=== PATIENT | male | born 1965 | race Caucasian/White ===

== ENCOUNTER 2016-11-09 20:25 | Emergency (ER) | payer OTHER ==
[2016-11-09 20:47] VITALS: BP 130/72; PULSE 82; TEMP 98.6; BMI 29.2
--- NOTE | 2016-11-09 21:15 | PDOC ---
History of Present Illness - General History Source: Patient Exam Limitations: No Limitations - History of Present Illness Initial Comments: 11/09/16 21:24 The patient is a 51 year old male, with significant past medical history diabetes, pancreatitis, HLD who presents today complaining of 3 weeks of right neck pain, right ear pain, and right eye pain and swelling. The patient reports that the neck pain is exacerbated upon movement and worse when sleeping and driving. He reports spontaneous right ear pain that feels like he is "being electrocuted". His right eye has progressively swollen since the pain began, but not red or itchy. He notes an intermittent frontal headache that also began at the onset of these symptoms. He states that he had a recent sore throat, subjective fever, body aches, and chills 2 weeks ago which has since subsided. The patient states that he is compliant with all of his medications. He denies head trauma. He denies visual changes. He denies jaw pain. He denies a rash. He denies fever, chills, nausea, vomiting. He denies chest pain. Allergies: none reported Social Hx: tobacco use (1ppd). No alcohol use. PCP- Dr. Dennis <Zulma Aquino - Last Filed: 11/09/16 21:34> <Amalia Lion - Last Filed: 11/10/16 05:10> - General Chief Complaint: Pain Stated Complaint: NECK, RIGHT FACE, RIGHT EYELID PAIN Time Seen by Provider: 11/09/16 20:38 Past History <Zulma Aquino - Last Filed: 11/09/16 21:34> - Past Medical History Anemia: No Asthma: No Cancer: No Cardiac Disorders: No CVA: No COPD: No CHF: No Dementia: No Diabetes: Yes GI Disorders: Yes (Pancreatitis) Disorders: No HTN: No Hypercholesterolemia: Yes (and hyperlipidemia) Liver Disease: No Seizures: No Thyroid Disease: No - Surgical History Abdominal Surgery: No Appendectomy: Yes Cardiac Surgery: No Cholecystectomy: Yes Lung Surgery: No Neurologic Surgery: No Orthopedic Surgery: No - Immunization History Immunization Up to Date: Yes - Psycho/Social/Smoking Cessation Hx Anxiety: No Suicidal Ideation: No Smoking Status: Yes Smoking History: Current every day smoker Have you smoked in the past 12 months: Yes Number of Cigarettes Smoked Daily: 10 Cigars Per Day: 0 Information on smoking cessation initiated: Yes 'Breaking Loose' booklet given: 10/19/15 Hx Alcohol Use: No Drug/Substance Use Hx: No Substance Use Type: None Hx Substance Use Treatment: No <Amalia Lion - Last Filed: 11/10/16 05:10> - Past Medical History Allergies/Adverse Reactions: Allergies Allergy/AdvReac Type Severity Reaction Status Date / Time No Known Allergies Allergy Verified 11/09/16 20:27 Home Medications: Ambulatory Orders Insulin (Novolog) [Novolog Flexpen -] 23 units SQ TID 10/29/12 Insulin Detemir [Levemir Flexpen] 40 unit SQ HS 10/29/12 Metformin HCl [Glucophage] 1,000 mg PO BID 10/29/12 Atorvastatin Ca [Lipitor] 80 mg PO HS 10/19/15 [place]-3 Fatty Acids [Fish Oil] 1,000 mg PO DAILY 10/19/15 Fenofibrate [Lofibra] 160 mg PO DAILY 02/19/16 Insulin Detemir [Levemir Flextouch] 40 unit SQ AM 02/19/16 Amox-Tr/K Cl [Augmentin - 875Mg Tablet] 1 tab PO BID #14 tablet 11/09/16 Review of Systems - Review of Systems Able to Perform ROS?: Yes Comments:: 11/09/16 21:24 CONSTITUTIONAL: Absent: fever, no chills, no fatigue EYES: Present: swollen right eye. Absent: visual changes ENT: Present: right ear pain Absent: no sore throat CARDIOVASCULAR: Absent: chest pain, no palpitations RESPIRATORY: Absent: cough, no SOB GI: Absent: abdominal pain, no nausea, no vomiting, no constipation, no diarrhea GENITOURINARY: Absent: dysuria, no frequency, no hematuria MUSCULOSKELETAL: Present: right sided neck pain Absent: back pain SKIN: Absent: rash NEURO: Present: intermittent frontal headache <Zulma Aquino - Last Filed: 11/09/16 21:34> *Physical Exam - Vital Signs Last Vital Signs Temp Pulse Resp BP Pulse Ox 98.6 F 82 15 130/72 95 11/09/16 20:27 11/09/16 20:27 11/09/16 20:27 11/09/16 20:27 11/09/16 20:27 - Physical Exam Comments: 11/09/16 21:25 GENERAL: The patient is awake, alert, and fully oriented, in no acute distress. HEAD: +Mild edema and moderate tenderness of the right occipital scalp region extending to the retro auricular area without fluctuance or abrasions/ lacerations. Normal with no signs of trauma. EYES: +moderate edema and erythema of the right upper eyelid. Remainder of the eye exam without abnormality. Pupils equal, round and reactive to light, extraocular movements intact, sclera anicteric, conjunctiva clear with no pallor. ENT +:Normal right ear with no pain with movement of the external ear canal. Normal tympanic membrane Nares patent, oropharynx clear without exudates. Moist mucous membranes. FACE: +Moderate non tender edematous area of the right lateral mid cheek without erythema or increased warmth. No pain on opening of the jaw. NECK: +mild right paraspinal muscle tenderness but neck is supple without other masses. Normal range of motion, supple without lymphadenopathy, JVD, or masses. LUNGS: Breath sounds equal, clear to auscultation bilaterally. No wheeze/ crackles. HEART: Regular rate and rhythm, normal S1 and S2 without murmur or rub. ABDOMEN: Soft/nontender/nondistended. BS wnl. No guarding or rebound. No palpable masses. No hepatosplenomegaly. EXTREMITIES: Normal range of motion, no edema. No clubbing or cyanosis. No cords, erythema, or tenderness. NEUROLOGICAL: Cranial nerves II through XII grossly intact. Normal speech, normal gait. PSYCH: Normal mood, normal affect. SKIN: Warm, Dry, normal turgor, no rashes or lesions noted. <Zulma Aquino - Last Filed: 11/09/16 21:34> - Vital Signs Last Vital Signs Temp Pulse Resp BP Pulse Ox 98.6 F 82 15 130/72 95 11/09/16 20:27 11/09/16 20:27 11/09/16 20:27 11/09/16 20:27 11/09/16 20:27 <Amalia Lion - Last Filed: 11/10/16 05:10> ED Treatment Course - LABORATORY CBC & Chemistry Diagram: 11/09/16 22:05 11/09/16 22:05 <Amalia Lion - Last Filed: 11/10/16 05:10> Medical Decision Making - Medical Decision Making Documentation has been prepared under my direction and personally reviewed by me in its entirety. I attest that this documented accurately reflects all work, treatment, procedures and medical decision making performed by me. As noted above, this 51-year-old insulin-dependent diabetic man presents with history of right-sided posterior headache and scalp tenderness, intermittent right ear paresthesias as well as right facial edema and frontal headache for 2 weeks. There has been no rash. There has been no neck stiffness He presents tonight because the right upper eyelid has become more swollen and erythematous. He denies fever/chills now although he had generalized myalgias and fever a few weeks ago. He denies throat or dental issues currently. Exam as noted. Chemistry profile and CBC essentially normal Noncontrast head CT, soft tissue neck CT and facial CT was performed in order to fully rule out deep space abscess. No evidence of abscess present on CT studies as interpreted by Imaging sports nutritionist. There is some mucosal thickening of the right ethmoid and right sphenoid sinus without air-fluid levels. Although mention of pharyngeal soft tissue thickening was made, there is no correlation of this on physical exam. Although some of these symptoms are consistent with zoster, doubt that symptoms would be present for this length of time without development of rash. Patient will be started on Augmentin 875/125 twice a day to treat sphenoidal/ ethmoid sinusitis. Patient strongly urged to follow-up with (patient states that he has a scheduled appointment with him in 3 days.) Meanwhile, he should return to the ER if he has worsening pain or develops fever/rash <Amalia Lion - Last Filed: 11/10/16 05:10> *DC/Admit/Observation/Transfer - Attestations Scribe Attestion: 11/09/16 21:26 Documentation prepared by BEENA Cronin, acting as medical charge entry specialist for Amalia Lion MD. <Zulma Aquino - Last Filed: 11/09/16 21:34> <Amalia Lion - Last Filed: 11/10/16 05:10> Diagnosis at time of Disposition: Sinusitis Qualifiers: Sinusitis location: unspecified location Recurrence: non-recurrent - Discharge Dispostion Disposition: HOME Condition at time of disposition: Stable - Prescriptions Prescriptions: Amox-Tr/K Cl [Augmentin - 875Mg Tablet] 1 tab PO BID #14 tablet - Referrals Referrals: Earl Dennis MD [Primary Care Provider] - - Patient Instructions Printed Discharge Instructions: Sinusitis Additional Instructions: Augmentin 875/125 twice a day for one week ( take with food) Local warmth to right posterior neck as needed Tylenol/Motrin/Aleve as needed for pain Return to ER if you have worsening swelling/pain/develop fever Follow-up with Dr. Dennis as scheduled this coming week
[2016-11-09 22:33] LABS: ALBUMIN 3.9 g/dl (3.5-5.0); ALK PHOS 40 U/L (32-92); ANION GAP 9 (8-16); CALCIUM 9.2 mg/dl (8.4-10.2); CO2 24 mmol/L (22-28); CREATININE 1.1 mg/dl (0.6-1.3); GLUCOSE,RANDOM 111 mg/dl (74-106); SGOT/AST 28 U/L (10-42); SGPT/ALT 39 U/L (10-40); TOT PROT 6.6 g/dl (6.4-8.3)
[2016-11-09 22:35] LABS: BASOPHIL 0.8 % (0-2.0); MCH 30.2 pg (25.7-33.7); MCHC 33.4 g/dl (32.0-35.9); MEAN CELL VOLUME 90.7 fl (80-96); MEAN PLT VOLUME 8.6 fl (7.5-11.1); NEUTROPHILS 39.1 % (42.8-82.8); PLATELET COUNT 277 K/MM3 (134-434); RDW 13.9 % (11.9-15.9)
[2016-11-09 22:43] LABS: BILIRUBIN,TOTAL 0.5 mg/dl (0.2-1.0)
[2016-11-09] MEDS ORDERED: AMOX TR/POT CLAV 875MG/125MG TABLETS (FP) PO ONE (23:40)
[2016-11-09] MEDS ORDERED: AMOX TR/POT CLAV 875MG/125MG TABLETS (FP) ONE (23:43)
== END 2016-11-09 23:47 | disposition home or self-care (01) ==
LOC: FER 20:25
DX: J32.8 Other chronic sinusitis (principal); E11.9 Type 2 diabetes mellitus without complications; K85.90 Acute pancreatitis without necrosis or infection, unspecified; E78.5 Hyperlipidemia, unspecified; F17.210 Nicotine dependence, cigarettes, uncomplicated
CPT/HCPCS: 36415; 70450-TC; 70486-TC; 70490-TC; 80053; 85025; 99282-25

== ENCOUNTER 2017-10-20 18:09 | Emergency (ER) | payer OTHER ==
--- NOTE | 2017-10-20 18:13 | PDOC ---
History of Present Illness - General Chief Complaint: Cold Symptoms Stated Complaint: COUGH Time Seen by Provider: 10/20/17 18:13 History Source: Patient Exam Limitations: No Limitations - History of Present Illness Initial Comments: 10/20/17 18:18 52 y/o male with diabetes, high cholesterol, pancreatitis, presents to ER with congestion, cough for several months, but now having more coughing spells. No productive cough. No headache, SOB or chest pain. No N/V/d/C. No back pain. Using Afrin with no relief. Has an appointment with PMD next week. Patient states cough has gotten worse over last few days. No traveling or sick contacts. Timing/Duration: reports: constant Severity: reports: mild Associated Symptoms: reports: cough, nasal congestion. denies: fever/chills, headache Past History - Past Medical History Allergies/Adverse Reactions: Allergies Allergy/AdvReac Type Severity Reaction Status Date / Time No Known Allergies Allergy Verified 10/20/17 18:10 Home Medications: Ambulatory Orders Insulin (Novolog) [Novolog Flexpen -] 30 units SQ TID 10/29/12 metFORMIN HCL [Glucophage] 1,000 mg PO BID 10/29/12 Atorvastatin Ca [Lipitor] 80 mg PO HS 10/19/15 [place]-3 Fatty Acids [Fish Oil] 1,000 mg PO DAILY 10/19/15 Gemfibrozil [Lopid] 600 mg PO DAILY 03/30/17 Albuterol Sulfate Inhaler - [Ventolin HFA Inhaler -] 1 - 2 inh PO QID #1 inhaler 10/20/17 Aspirin [ASA -] 81 mg PO DAILY 10/20/17 Azithromycin [Zithromax -] 250 mg PO UTDICT #6 tab 10/20/17 Anemia: No Asthma: No Cancer: No Cardiac Disorders: No CVA: No COPD: No CHF: No Dementia: No Diabetes: Yes GI Disorders: Yes (Pancreatitis) Disorders: No HTN: No Hypercholesterolemia: Yes (and hyperlipidemia) Liver Disease: No Seizures: No Thyroid Disease: No - Surgical History Abdominal Surgery: No Appendectomy: Yes Cardiac Surgery: No Cholecystectomy: Yes Lung Surgery: No Neurologic Surgery: No Orthopedic Surgery: No - Immunization History Immunization Up to Date: Yes - Suicide/Smoking/Psychosocial Hx Smoking Status: Yes Smoking History: Current every day smoker Have you smoked in the past 12 months: Yes Number of Cigarettes Smoked Daily: 10 Cigars Per Day: 0 'Breaking Loose' booklet given: 10/19/15 Hx Alcohol Use: No Drug/Substance Use Hx: No Substance Use Type: None Hx Substance Use Treatment: No Respiratory Specific PMHX - Complaint Specific PMHX Angina: No Review of Systems - Review of Systems Able to Perform ROS?: Yes Is the patient limited [place] proficient: No Constitutional: No: Chills, Fever HEENTM: Yes: Nose Congestion Respiratory: Yes: Cough. No: Shortness of Breath Cardiac (ROS): No: Chest Pain, Syncope ABD/GI: No: Nausea, Vomiting Musculoskeletal: No: Back Pain Neurological: No: Paresthesia, Tremors All Other Systems: Reviewed and Negative *Physical Exam - Physical Exam General Appearance: Yes: Nourished, Appropriately Dressed. No: Apparent Distress HEENT: positive: EOMI, BRIANDA, Normal ENT Inspection, Normal Voice, Pharynx Normal Neck: positive: Trachea midline, Normal Thyroid, Supple. negative: Tender, Rigid Respiratory/Chest: positive: Normal Breath Sounds. negative: Chest Tender, Lungs Clear (coarse breath sounds b/l, no wheezing noted), Respiratory Distress Cardiovascular: positive: Regular Rhythm, Regular Rate, S1, S2. negative: Edema , JVD, Murmur Vascular Pulses: Femoral (R): 4+, Femoral (L): 4+, Carotid (R): 4+, Carotid (L) : 4+, Dorsalis-Pedis (R): 4+, Doralis-Pedis (L): 4+ Gastrointestinal/Abdominal: positive: Normal Bowel Sounds, Flat, Soft. negative : Tender, Organomegaly, Pulsatile Mass Lymphatic: negative: Adenopathy, Tenderness, Other Musculoskeletal: positive: Normal Inspection. 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 Pt appears to have bronchitis, will cover with Z-pack Albuterol MDI 2 puffs 4x/day as needed Will avoid steroids at this time due to hx of diabetes, pt is in agreement with plan Stop Afrin, use Flonase Vitals stable 100% on RA If worsen return to ER *DC/Admit/Observation/Transfer Diagnosis at time of Disposition: Bronchitis - Discharge Dispostion Condition at time of disposition: Good Decision to Admit order: No - Prescriptions Prescriptions: Albuterol Sulfate Inhaler - [Ventolin HFA Inhaler -] 1 - 2 inh PO QID #1 inhaler Azithromycin [Zithromax -] 250 mg PO UTDICT #6 tab - Referrals - Patient Instructions Printed Discharge Instructions: DI for Acute Bronchitis Additional Instructions: Fluids, rest, Motrin Z-pack as directed Albuterol MDI 2 puffs 4x/day as needed Stop Afrin, use Flonase If worsen return to ER - Post Discharge Activity
[2017-10-20 18:56] VITALS: BP 138/78; PULSE 90; TEMP 98.5; BMI 28.1
== END 2017-10-20 18:53 | disposition home or self-care (01) ==
LOC: FER 18:09
DX: J40 Bronchitis, not specified as acute or chronic (principal); E11.9 Type 2 diabetes mellitus without complications; Z79.4 Long term (current) use of insulin; F17.210 Nicotine dependence, cigarettes, uncomplicated; E78.5 Hyperlipidemia, unspecified
CPT/HCPCS: 99282-25

== ENCOUNTER 2018-02-22 12:41 | Emergency (ER) | payer OTHER ==
[2018-02-22] MEDS ORDERED: predniSONE 20 MG TABLET (UD) PO ONE (12:51)
[2018-02-22] MEDS ORDERED: ALBUTEROL SO4 2.5/IPRATROPIUM 0.5 INH SOL 3 ML VIAL.NEB. NEB ONE ×2 (12:51→13:00)
--- NOTE | 2018-02-22 12:56 | PDOC ---
History of Present Illness - General Chief Complaint: Asthma Stated Complaint: asthma Time Seen by Provider: 02/22/18 12:44 History Source: Patient Exam Limitations: No Limitations - History of Present Illness Initial Comments: 02/22/18 12:52 53 y/o male with hx of asthma presents to ER with increase cough adn SOB. Patient using inhaler but no better. Patient is a smoker for a long time, no chest pain or back pain. Patient states that he was working outside on Friday and ever since he has had a cough. Had a work up on his asthma but no results. No fever orc hills. No N/V/d/C. Timing/Duration: reports: constant Severity: reports: mild Modifying Factors: improves with: albuterol inhaler Associated Symptoms: reports: cough, shortness of breath. denies: fever/chills , nasal drainage Past History - Past Medical History Allergies/Adverse Reactions: Allergies Allergy/AdvReac Type Severity Reaction Status Date / Time No Known Allergies Allergy Verified 02/22/18 12:42 Home Medications: Ambulatory Orders Insulin (Novolog) [Novolog Flexpen -] 30 units SQ TID 10/29/12 metFORMIN HCL [Glucophage] 1,000 mg PO BID 10/29/12 Atorvastatin Ca [Lipitor] 80 mg PO HS 10/19/15 [place]-3 Fatty Acids [Fish Oil] 1,000 mg PO DAILY 10/19/15 Albuterol Sulfate Inhaler - [Ventolin HFA Inhaler -] 1 - 2 inh PO QID #1 inhaler 10/20/17 Aspirin [ASA -] 81 mg PO DAILY 10/20/17 Azithromycin [Zithromax -] 250 mg PO UTDICT #6 tab 02/22/18 Prednisone [Deltasone] 20 mg PO BID #10 tablet 02/22/18 Anemia: No Asthma: No Cancer: No Cardiac Disorders: No CVA: No COPD: No CHF: No Dementia: No Diabetes: Yes GI Disorders: Yes (Pancreatitis) Disorders: No HTN: No Hypercholesterolemia: Yes (and hyperlipidemia) Liver Disease: No Seizures: No Thyroid Disease: No - Surgical History Abdominal Surgery: No Appendectomy: Yes Cardiac Surgery: No Cholecystectomy: Yes Lung Surgery: No Neurologic Surgery: No Orthopedic Surgery: No - Immunization History Immunization Up to Date: Yes - Suicide/Smoking/Psychosocial Hx Smoking Status: Yes Smoking History: Current every day smoker Have you smoked in the past 12 months: Yes Number of Cigarettes Smoked Daily: 10 Cigars Per Day: 0 'Breaking Loose' booklet given: 10/20/17 Hx Alcohol Use: No Drug/Substance Use Hx: No Substance Use Type: None Hx Substance Use Treatment: No Respiratory Specific PMHX - Complaint Specific PMHX Angina: No Review of Systems - Review of Systems Able to Perform ROS?: Yes Is the patient limited [place] proficient: No Constitutional: No: Chills, Fever HEENTM: No: Nose Congestion, Throat Pain Respiratory: Yes: Cough, Shortness of Breath, Wheezing. No: Orthopnea, Productive cough Cardiac (ROS): No: Chest Pain, Palpitations ABD/GI: No: Nausea, Vomiting All Other Systems: Reviewed and Negative *Physical Exam - Physical Exam General Appearance: Yes: Nourished, Appropriately Dressed. No: Apparent Distress HEENT: positive: EOMI, BRIANDA, Normal ENT Inspection, Normal Voice, Pharynx Normal Neck: positive: Trachea midline, Normal Thyroid, Supple. negative: Tender, Rigid, Carotid bruit Respiratory/Chest: positive: Rhonchi, Wheezing. negative: Chest Tender, Lungs Clear (coarse breath sounds with expiratory wheezing b/l), Normal Breath Sounds , Respiratory Distress, Accessory Muscle Use, Crackles Cardiovascular: positive: Regular Rhythm, Regular Rate, S1, S2. negative: Edema , JVD, Murmur (no calf tenderness b/l) Vascular Pulses: Femoral (R): 4+, Femoral (L): 4+, Carotid (R): 4+, Carotid (L) : 4+, Dorsalis-Pedis (R): 4+, Doralis-Pedis (L): 4+ Gastrointestinal/Abdominal: positive: Normal Bowel Sounds, Flat, Soft. negative : Tender, Organomegaly, Pulsatile Mass Lymphatic: negative: Adenopathy, Tenderness, Other Musculoskeletal: positive: Normal Inspection. negative: CVA Tenderness Extremity: positive: Normal Capillary Refill, Normal Inspection, Normal Range of Motion. 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 Will treat and obtain CXR. Pt is in agreement with plan Patient appears better, feels better after treatment Discussed smoking censation and early COPD Lungs clearer with decreased wheezing Will discharge home with asthmatic bronchitis If worsen will return to ER Pt is in agreement with plan *DC/Admit/Observation/Transfer Diagnosis at time of Disposition: Asthmatic bronchitis Qualifiers: Asthma severity: mild Asthma persistence: persistent Asthma complication type: with acute exacerbation Qualified Code(s): J45.31 - Mild persistent asthma with (acute) exacerbation - Discharge Dispostion Disposition: HOME Condition at time of disposition: Improved Decision to Admit order: No - Referrals - Patient Instructions Printed Discharge Instructions: Asthma -- Adult, DI for Chronic Bronchitis Additional Instructions: Fluids, rest, Tylenol Continue asthma medications as needed Prednisone 20 mg 2x/day for 5 days Z-pack as directed Stop smoking If worsen return to ER - Post Discharge Activity
[2018-02-22 12:59] VITALS: BP 139/71; PULSE 84; TEMP 98.4; BMI 30.4
[2018-02-22] MEDS ORDERED: predniSONE 20 MG TABLET (UD) ONE (12:59)
== END 2018-02-22 13:43 | disposition home or self-care (01) ==
LOC: FER 12:41
PROC: 3E0F7GC Introduction of Other Therapeutic Substance into Respiratory Tract, Via Natural or Artificial Opening (ICD-10-PCS; principal; 2018-02-22)
DX: J45.31 Mild persistent asthma with (acute) exacerbation (principal); F17.210 Nicotine dependence, cigarettes, uncomplicated; E11.9 Type 2 diabetes mellitus without complications; E78.00 Pure hypercholesterolemia, unspecified
CPT/HCPCS: 71046-TC-FY; 99281-25; J7620

== ENCOUNTER 2019-02-12 21:17 | Inpatient (IN) | payer OTHER ==
--- NOTE | 2019-02-12 21:36 | PDOC ---
Documentation entered by Jimenez Alba SCRIBE, acting as scribe for Keisha Poe MD. Keisha Poe MD: This documentation has been prepared by the Parth lopez Daniel, SCRIBE, under my direction and personally reviewed by me in its entirety. I confirm that the documentation accurately reflects all work , treatment, procedures, and medical decision making performed by me. History of Present Illness - General Chief Complaint: Pain, Acute Stated Complaint: PANCREATITIS Time Seen by Provider: 02/12/19 21:18 History Source: Patient Exam Limitations: No Limitations - History of Present Illness Initial Comments: 02/12/19 21:34 The patient is a 54 year old male with a past medical history of asthma and pancreatitis here today for evaluation of diffuse abdominal pain. The patient reports that his symptoms started last night and describes them as diffuse abdominal pain that radiates around to the right side of his back which is worse with deep breaths, nausea, vomiting, and constipation. Patient reports that this feels similar to his other episodes of pancreatitis and notes that these episodes are caused by high triglycerides. Patient denies headache, lightheadedness. Denies fever, chills. Denies chest pain, shortness of breath. Denies diarrhea. Allergies: NKA PCP: Earl Dennis General: No fevers or chills, no weakness, no weight loss HEENT: No change in vision. No sore throat,. No ear pain CardioVascular: No chest pain or shortness of breath Respiratory:No cough, or wheezing. Gastrointestinal: +abdominal pain. +nausea, vomiting. +constipation. no diarrhea, No rectal bleeding Genitourinary: No dysuria, hematuria, or frequency Musculoskeletal: No joint or muscle pain or swelling Neurologic: No headache, vertigo, dizziness or loss of consciousness Psychiatric: nor depression Skin: No rashes or easy bruising Endocrine: no increased thirst or abnormal weight change Allergic: no skin or latex allergy All other systems reviewed and normal General: Well-nourished well-developed individual, no acute distress HEENT: Throat: Normal, tonsils normal, no erythema or exudate Neck: Supple, no meningeal signs, no lymphadenopathy Eyes::Pupils equal reactive and round, extraocular motion intact Chest: Nontender to palpation Cardiac: S1-S2 normal, regular rate and rhythm, no murmurs rubs or gallops Respiratory: Lungs clear to auscultation bilateral Abdomen: +slight distention. +decreased bowel sounds. +tenderness to palpation of epigastrum and right upper quadrant. Soft Extremities: Warm, dry, no cyanosis, clubbing, or edema Skin: No rashes Neuro: Alert and oriented x3, nonfocal exam, grossly intact, normal gait Psych: Normal mood and affect 02/12/19 22:15 This is a 54-year-old male who comes in complaining of pancreatitis. 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 Patient said this is his typical pancreatic pain. Patient said he hasn't has had some nausea and vomiting associated with it but no diarrhea. Patient denies any chest pain or shortness of breath. Patient is tender in the epigastric and right upper quadrant there is no guarding or rebound Workup initiated including CBC, comp, lipase and chest x-ray, CAT scan abdomen and pelvis Patient being given fluids and antiemetics and pain medication 02/13/19 00:12 CAT scan read as early acute pancreatitis. Patient unable to tolerate by mouth's and is requiring IV pain medication. Patient will be admitted for pain management, IV fluids and management of his pancreatitis. Past History - Past Medical History Allergies/Adverse Reactions: Allergies Allergy/AdvReac Type Severity Reaction Status Date / Time No Known Allergies Allergy Verified 02/22/18 12:42 Home Medications: Ambulatory Orders metFORMIN HCL [Glucophage] 1,000 mg PO BID 10/29/12 Atorvastatin Ca [Lipitor] 80 mg PO HS 10/19/15 [place]-3 Fatty Acids [Fish Oil] 1,000 mg PO DAILY 10/19/15 Aspirin [ASA -] 81 mg PO DAILY 10/20/17 Fenofibrate Nanocrystallized [Fenofibrate] 160 mg PO HS 02/12/19 Glipizide 5 mg PO BID 02/12/19 Insulin Glargine,Hum.rec.anlog [Basaglar Kwikpen U-100] 100 unit SQ BID Insulin Regular, Human [Humulin R U-500 Kwikpen] 30 unit SQ ASDIR 02/12/19 Ramipril 2.5 mg PO DAILY 02/12/19 Anemia: No Asthma: No Cancer: No Cardiac Disorders: No CVA: No COPD: No CHF: No Dementia: No Diabetes: Yes GI Disorders: Yes (Pancreatitis) Disorders: No HTN: No Hypercholesterolemia: Yes (and hyperlipidemia) Liver Disease: No Seizures: No Thyroid Disease: No - Surgical History Abdominal Surgery: No Appendectomy: Yes Cardiac Surgery: No Cholecystectomy: Yes Lung Surgery: No Neurologic Surgery: No Orthopedic Surgery: No - Immunization History Immunization Up to Date: Yes - Suicide/Smoking/Psychosocial Hx Smoking Status: Yes Smoking History: Never smoked Have you smoked in the past 12 months: Yes Number of Cigarettes Smoked Daily: 10 If you are a former smoker, when did you quit?: 3 days ago, Cigars Per Day: 0 'Breaking Loose' booklet given: 10/20/17 Hx Alcohol Use: No Drug/Substance Use Hx: No Substance Use Type: None Hx Substance Use Treatment: No Review of Systems - Review of Systems Able to Perform ROS?: Yes *Physical Exam - Vital Signs Last Vital Signs Temp Pulse Resp BP Pulse Ox 98.7 F 76 16 164/79 97 02/12/19 21:19 02/12/19 21:19 02/12/19 21:19 02/12/19 21:19 02/12/19 21:19 ED Treatment Course - LABORATORY CBC & Chemistry Diagram: 02/12/19 21:40 02/12/19 21:40 *DC/Admit/Observation/Transfer Diagnosis at time of Disposition: Pancreatitis Qualifiers: Chronicity: acute Pancreatitis type: unspecified pancreatitis type Acute pancreatitis complication: unspecified Qualified Code(s): K85.90 - Acute pancreatitis without necrosis or infection, unspecified - Discharge Dispostion Condition at time of disposition: Stable Decision to Admit order: Yes - Referrals - Patient Instructions - Post Discharge Activity
[2019-02-12 22:04] LABS: BASO % 0.7 % (0-2.0); EOS % 0.9 % (0-4.5); HEMATOCRIT 45.4 % (35.4-49); HEMOGLOBIN 15.2 GM/dl (11.7-16.9); LYMPH % 26.2 % (8-40); MCH 31.3 pg (25.7-33.7); MCHC 33.6 g/dl (32.0-35.9); MEAN CELL VOLUME 93.2 fl (80-96); MEAN PLT VOLUME 9.1 fl (7.5-11.1); MONO % 10.2 % (3.8-10.2); PLATELET COUNT 248 K/MM3 (134-434); RBC 4.87 M/mm3 (4.00-5.60); RDW 13.9 % (11.9-15.9); WHITE BLOOD COUNT 13.1 K/mm3 (4.0-10.8)
[2019-02-12] MEDS ORDERED: SODIUM CHLORIDE 1,000 ML IV ONE (22:08)
[2019-02-12] MEDS ORDERED: morphine CARPU-JECT 4 MG/1 ML DISP.SYRIN IVPUSH ONE (22:08)
[2019-02-12 22:11] LABS: ALBUMIN 3.9 g/dl (3.4-5.0); BILIRUBIN,TOTAL 0.7 mg/dl (0.2-1); CALCIUM 9.7 mg/dl (8.5-10); CREATININE 0.9 mg/dl (0.55-1.3); POTASSIUM 4.1 mmol/L (3.5-5.1); TOT PROT 6.9 g/dl (6.4-8.2)
[2019-02-12] MEDS ORDERED: morphine SULFATE 4 MG/ML VIAL ONE (22:13)
[2019-02-12] MEDS ORDERED: ONDANSETRON 4 MG/2 ML VIAL IVPB ONE (22:16)
[2019-02-12] MEDS ORDERED: ONDANSETRON 4 MG/2 ML VIAL ONE (22:18)
[2019-02-13] MEDS ORDERED: morphine CARPU-JECT 4 MG/1 ML DISP.SYRIN IVPUSH ONE (00:29)
[2019-02-13] MEDS ORDERED: morphine SULFATE 4 MG/ML VIAL ONE (00:38)
[2019-02-13] MEDS ORDERED: ONDANSETRON 4 MG/2 ML VIAL IVPUSH PRN (01:51)
[2019-02-13] MEDS ORDERED: morphine CARPU-JECT 2 MG/1 ML DISP.SYRIN IVPUSH PRN (01:55)
[2019-02-13] MEDS: SODIUM CHLORIDE 1,000 ML IV SCH (03:03)
[2019-02-13 03:39] VITALS: BMI 30.5
[2019-02-13] MEDS ORDERED: INSULIN SLIDING SCALE (NOVOLOG) 1 VIAL SQ SCH (07:00)
[2019-02-13 08:42] LABS: HEMATOCRIT 43.8 % (35.4-49); HEMOGLOBIN 14.7 GM/dl (11.7-16.9); MCH 31.2 pg (25.7-33.7); MCHC 33.5 g/dl (32.0-35.9); MEAN PLT VOLUME 8.9 fl (7.5-11.1); PLATELET COUNT 227 K/MM3 (134-434); RBC 4.71 M/mm3 (4.00-5.60); RDW 14.1 % (11.9-15.9); WHITE BLOOD COUNT 11.5 K/mm3 (4.0-10.8)
[2019-02-13 09:04] LABS: CREATININE 0.9 mg/dl (0.55-1.3); POTASSIUM 4.4 mmol/L (3.5-5.1)
[2019-02-13 09:05] LABS: ALBUMIN 3.7 g/dl (3.4-5.0); BILIRUBIN,TOTAL 0.9 mg/dl (0.2-1); CALCIUM 8.9 mg/dl (8.5-10); TOT PROT 6.8 g/dl (6.4-8.2)
[2019-02-13] MEDS: HEPARIN NA (PORCINE) 5,000 UNITS/ML 1ML VIAL SQ SCH ×2 (09:51→21:23)
--- NOTE | 2019-02-13 11:39 | HP ---
CHIEF COMPLAINT:Abdominal pain and nausea PCP: Earl Falcon HISTORY OF PRESENT ILLNESS: The patient is a 54 year old male with a past medical history of DM, HTN, HDL, asthma,bronchitis, smoker and pancreatitis, who presents to ER complaining of sharp abdominal pain ( epigsatic / LUQ) which radiates to mid back, started on associated with nausea and chills,but no fever, vomiting, cp, sob, palpitations, or urinary symptoms. Patient reports that this feels similar to his other episodes of pancreatitis and notes that these episodes are caused by high triglycerides. ER course was notable for: (1)wbc -13.1, afebrile (2)LFT"s - ASt 43,ALT 82,ALK 51, Lipase 446 (3)CT abdomen: mild/early acute pancreatitis , marked hepatic steatosis, stable renal artery aneurysm (4( cXR: No acute pathology Recent Travel:No PAST MEDICAL HISTORY: As mentioned above PAST SURGICAL HISTORY: GB sx Appendectomy Social History: Smoking:yes, less than a pack per day (over 35 yrs) Alcohol:No Drugs: No *Family History Mother - CAD,CVA and DM Father - CAD,CVA and DM Uncle from mothers side of colon CA Allergies No Known Allergies Allergy (Verified 02/22/18 12:42) HOME MEDICATIONS: Home Medications Medication Instructions Recorded metFORMIN HCL [Glucophage] 1,000 mg PO BID 10/29/12 Atorvastatin Ca [Lipitor] 80 mg PO HS 10/19/15 [place]-3 Fatty Acids [Fish Oil] 1,000 mg PO DAILY 10/19/15 Aspirin [ASA -] 81 mg PO DAILY 10/20/17 Fenofibrate Nanocrystallized 160 mg PO HS 02/12/19 [Fenofibrate] Glipizide 5 mg PO BID 02/12/19 Insulin Glargine,Hum.rec.anlog 100 unit SQ BID 02/12/19 [Basaglar Kwikpen U-100] Insulin Regular, Human [Humulin R 30 unit SQ ASDIR 02/12/19 U-500 Kwikpen] Ramipril 2.5 mg PO DAILY 02/12/19 REVIEW OF SYSTEMS CONSTITUTIONAL: Absent: fever, chills, diaphoresis, generalized weakness, malaise, loss of appetite, weight change HEENT: Absent: rhinorrhea, nasal congestion, throat pain, throat swelling, difficulty swallowing, mouth swelling, ear pain, eye pain, visual changes CARDIOVASCULAR: Absent: chest pain, syncope, palpitations, irregular heart rate, lightheadedness , peripheral edema RESPIRATORY: Absent: cough, shortness of breath, dyspnea with exertion, orthopnea, wheezing, stridor, hemoptysis GASTROINTESTINAL: Abdominal pain epigastric and LUQ, and nausea Absent: abdominal distension, vomiting, diarrhea, constipation, melena, hematochezia GENITOURINARY: Absent: dysuria, frequency, urgency, hesitancy, hematuria, flank pain, genital pain MUSCULOSKELETAL: Absent: myalgia, arthralgia, joint swelling, back pain, neck pain SKIN: Absent: rash, itching, pallor HEMATOLOGIC/IMMUNOLOGIC: Absent: easy bleeding, easy bruising, lymphadenopathy, frequent infections ENDOCRINE: Absent: unexplained weight gain, unexplained weight loss, heat intolerance, cold intolerance NEUROLOGIC: Absent: headache, focal weakness or paresthesias, dizziness, unsteady gait, seizure, mental status changes, bladder or bowel incontinence PSYCHIATRIC: Absent: anxiety, depression, suicidal or homicidal ideation, hallucinations. PHYSICAL EXAMINATION Vital Signs - 24 hr 02/12/19 02/13/19 02/13/19 21:19 01:17 03:30 Temperature 98.7 F 97.5 F L Pulse Rate 76 81 Pulse Rate [ 75 Radial] Respiratory 16 18 18 Rate Blood Pressure 164/79 160/76 Blood Pressure 150/78 [Arm] O2 Sat by Pulse 97 96 95 Oximetry (%) 02/13/19 05:51 Temperature 98.0 F Pulse Rate 75 Pulse Rate [ Radial] Respiratory 18 Rate Blood Pressure 153/67 Blood Pressure [Arm] O2 Sat by Pulse 97 Oximetry (%) GENERAL: Awake, alert, and fully oriented, in no acute distress. HEAD: Normal with no signs of trauma. EYES: Pupils equal, round and reactive to light, extraocular movements intact, sclera anicteric, conjunctiva clear. No lid lag. EARS, NOSE, THROAT: Ears normal, nares patent, oropharynx clear without exudates. Moist mucous membranes. NECK: Normal range of motion, supple without lymphadenopathy, JVD, or masses. LUNGS: Breath sounds equal, clear to auscultation bilaterally. No wheezes, and no crackles. No accessory muscle use. HEART: Regular rate and rhythm, normal S1 and S2 without murmur, rub or gallop. ABDOMEN: Soft,+tenderness epigastric and LUQ , not distended, normoactive bowel sounds, no guarding, no rebound, no masses. No hepatomegaly or splenomegaly. MUSCULOSKELETAL: Normal range of motion at all joints. No bony deformities or tenderness. No CVA tenderness. UPPER EXTREMITIES: 2+ pulses, warm, well-perfused. No cyanosis. No clubbing. No peripheral edema. LOWER EXTREMITIES: 2+ pulses, warm, well-perfused. No calf tenderness. No peripheral edema. NEUROLOGICAL: Cranial nerves II-XII intact. Normal speech. Normal gait. PSYCHIATRIC: Cooperative. Good eye contact. Appropriate mood and affect. SKIN: Warm, dry, normal turgor, no rashes or lesions noted, normal capillary refill. Laboratory Results - last 24 hr 02/12/19 02/12/19 02/12/19 21:40 21:40 21:40 WBC 13.1 H RBC 4.87 Hgb 15.2 Hct 45.4 MCV 93.2 MCH 31.3 MCHC 33.6 RDW 13.9 Plt Count 248 MPV 9.1 Absolute Neuts (auto) 8.2 Neutrophils % 62.0 D Lymphocytes % 26.2 D Monocytes % 10.2 Eosinophils % 0.9 Basophils % 0.7 Sodium 136 Potassium 4.1 Chloride 104 Carbon Dioxide 24 Anion Gap 8 BUN 13.0 Creatinine 0.9 Est GFR (CKD-EPI)AfAm 113.41 Est GFR (CKD-EPI)NonAf 97.85 POC Glucometer Random Glucose 155 H Calcium 9.7 Total Bilirubin 0.7 AST 43 H ALT 82 H Alkaline Phosphatase 51 Total Protein 6.9 Albumin 3.9 Lipase 446 H 02/13/19 02/13/19 02/13/19 06:14 07:40 07:40 WBC 11.5 H RBC 4.71 Hgb 14.7 Hct 43.8 MCV 93.0 MCH 31.2 MCHC 33.5 RDW 14.1 Plt Count 227 MPV 8.9 Absolute Neuts (auto) Neutrophils % Lymphocytes % Monocytes % Eosinophils % Basophils % Sodium 136 Potassium 4.4 Chloride 104 Carbon Dioxide 24 Anion Gap 8 BUN 12.0 Creatinine 0.9 Est GFR (CKD-EPI)AfAm 113.41 Est GFR (CKD-EPI)NonAf 97.85 POC Glucometer 227 Random Glucose 225 H Calcium 8.9 Total Bilirubin 0.9 AST 107 H ALT 148 H Alkaline Phosphatase 57 Total Protein 6.8 Albumin 3.7 Lipase ASSESSMENT/PLAN: The patient is a 54 year old male with a past medical history of DM, HTN, HDL, asthma,bronchitis, smoker and pancreatitis, who presents to ER complaining of sharp abdominal pain and nausea, admitted with pancreatitis. * Abdominal pain-likely due to pancreatitis - CT abdomen consistent with pancreatitis - Lipase 446 - will check Amylase and fasting lipids - will keep pt NPO - pain control * mild leukocytosis - likely reactive - afenrile, asymptomatic - cxr- No acute pathology - will check UA * DM - will cont on Lispro sliding scale - FS AC& HS - will check Hgb Alc - will hold off home dose Glipizide - while on NPO 50% of Glargene and monitor * Smoker - smoking cessation counselling done - ref Nicotine patch * HDL - will check fasting lipids - will hold off on Statin * HTN - will cont on Lisinopril * Transaminitis, likely due to fatty liver -asymptomatic - will f/u on LFT's *Renal artery aneurysm - out pt f/u - renal functions stable * VTE : Heparin SQ *F/E/N NPO Code -Full Visit type - Emergency Visit Emergency Visit: Yes ED Registration Date: 02/13/19 Care time: The patient presented to the Emergency Department on the above date and was hospitalized for further evaluation of their emergent condition. - New Patient This patient is new to me today: No - Critical Care Critical Care patient: No
[2019-02-13] MEDS: morphine CARPU-JECT 2 MG/1 ML DISP.SYRIN IVPUSH PRN ×3 (11:56→20:31)
[2019-02-13 12:15] LABS: CHOLESTEROL 192 mg/dl (50-200); HDL CHOLESTEROL 17 mg/dl (40-60)
[2019-02-13 13:03] LABS: LDL CHOLESTEROL (ONLY DFH) -26 mg/dl (5-100); TRIGLYCERIDES 1006 mg/dl (0-150)
[2019-02-13 15:23] LABS: EPITHELIAL CELLS FEW /hpf
[2019-02-13] MEDS: INSULIN SLIDING SCALE (NOVOLOG) 1 VIAL SQ SCH (16:42)
[2019-02-13] MEDS: INSULIN (LEVEMIR) 100 UNITS/ML UNITS SQ SCH (21:22)
--- NOTE | 2019-02-13 23:43 | EKG ---
Test Reason : Blood Pressure : / mmHG Vent. Rate : 076 BPM Atrial Rate : 076 BPM P-R Int : 148 ms QRS Dur : 088 ms QT Int : 366 ms P-R-T Axes : 039 038 045 degrees QTc Int : 411 ms NORMAL SINUS RHYTHM NORMAL ECG WHEN COMPARED WITH ECG OF 29-DEC-2003 20:30, PREMATURE SUPRAVENTRICULAR COMPLEXES ARE NO LONGER PRESENT Confirmed by ANIL WALKER MD ([id number]) on 02/13/2019 11:42:35 PM Referred By: MD HOFFMANN Confirmed By:ANIL WALKER MD
[2019-02-14] MEDS: morphine CARPU-JECT 2 MG/1 ML DISP.SYRIN IVPUSH PRN ×2 (05:51→09:41)
[2019-02-14] MEDS: INSULIN SLIDING SCALE (NOVOLOG) 1 VIAL SQ SCH ×2 (07:05→16:57)
[2019-02-14] MEDS: SODIUM CHLORIDE 1,000 ML IV SCH (07:05)
[2019-02-14 09:15] LABS: BASO % 0.7 % (0-2.0); EOS % 1.9 % (0-4.5); HEMATOCRIT 43.3 % (35.4-49); HEMOGLOBIN 14.4 GM/dl (11.7-16.9); LYMPH % 44.4 % (8-40); MCHC 33.2 g/dl (32.0-35.9); MEAN CELL VOLUME 93.3 fl (80-96); MEAN PLT VOLUME 9.1 fl (7.5-11.1); MONO % 10.9 % (3.8-10.2); NEUT % 42.1 % (42.8-82.8); PLATELET COUNT 225 K/MM3 (134-434); RBC 4.64 M/mm3 (4.00-5.60); RDW 13.6 % (11.9-15.9)
[2019-02-14 09:27] LABS: ALBUMIN 3.4 g/dl (3.4-5.0); BILIRUBIN,TOTAL 0.9 mg/dl (0.2-1); CALCIUM 8.5 mg/dl (8.5-10); CREATININE 0.8 mg/dl (0.55-1.3); POTASSIUM 4.1 mmol/L (3.5-5.1); TOT PROT 6.5 g/dl (6.4-8.2)
[2019-02-14] MEDS: HEPARIN NA (PORCINE) 5,000 UNITS/ML 1ML VIAL SQ SCH ×2 (09:39→21:26)
[2019-02-14] MEDS: ASPIRIN 81 MG CHEWABLE TABLETS PO SCH (09:41)
[2019-02-14] MEDS: RAMIPRIL 2.5 MG CAPSULE (FP) PO SCH (09:41)
[2019-02-14] MEDS: INSULIN (LEVEMIR) 100 UNITS/ML UNITS SQ SCH ×2 (11:00→21:26)
[2019-02-14] MEDS ORDERED: traMADol HCL 50 MG TABLET PO PRN (11:31)
--- NOTE | 2019-02-14 11:43 | PN ---
Physical Exam: SUBJECTIVE: Patient seen and examined, reports abdominal much better, denies N/V /D, cp, sob or palpitations. OBJECTIVE: Vital Signs Period Temp Pulse Resp BP Sys/Perez Pulse Ox Last 24 Hr 97.5 F-98.7 F 62-71 18-18 130-153/60-71 94-97 GENERAL: The patient is awake, alert, and fully oriented, in no acute distress. HEAD: Normal with no signs of trauma. EYES: PERRL, extraocular movements intact, sclera anicteric, conjunctiva clear. No ptosis. ENT: Ears normal, nares patent, oropharynx clear without exudates, moist mucous membranes. NECK: Trachea midline, full range of motion, supple. LUNGS: Breath sounds equal, clear to auscultation bilaterally, no wheezes, no crackles, no accessory muscle use. HEART: Regular rate and rhythm, S1, S2 without murmur, rub or gallop. ABDOMEN: Soft, mild LUQ and epigastric tenderness with deep palpation, nondistended, normoactive bowel sounds, no guarding, no rebound, no hepatosplenomegaly, no masses. EXTREMITIES: 2+ pulses, warm, well-perfused, no edema. NEUROLOGICAL: Cranial nerves II through XII grossly intact. Normal speech, gait not observed. PSYCH: Normal mood, normal affect. SKIN: Warm, dry, normal turgor, no rashes or lesions noted Laboratory Results - last 24 hr 02/13/19 02/13/19 02/13/19 07:40 07:40 07:40 WBC RBC Hgb Hct MCV MCH MCHC RDW Plt Count MPV Absolute Neuts (auto) Neutrophils % Lymphocytes % Monocytes % Eosinophils % Basophils % Sodium Potassium Chloride Carbon Dioxide Anion Gap BUN Creatinine Est GFR (CKD-EPI)AfAm Est GFR (CKD-EPI)NonAf POC Glucometer Random Glucose Hemoglobin A1c % 7.6 H Calcium Total Bilirubin AST ALT Alkaline Phosphatase Total Protein Albumin Triglycerides 1006 H Cholesterol 192 Total LDL Cholesterol -26 L HDL Cholesterol 17 L Total Amylase 77 Lipase Urine Color Urine Appearance Urine pH Urine Protein Urine Glucose (UA) Urine Ketones Urine Blood Urine Nitrite Urine Bilirubin Urine Urobilinogen Ur Leukocyte Esterase Urine RBC Urine WBC Ur Transition Epith Cell 02/13/19 02/13/19 02/13/19 12:35 14:40 16:22 WBC RBC Hgb Hct MCV MCH MCHC RDW Plt Count MPV Absolute Neuts (auto) Neutrophils % Lymphocytes % Monocytes % Eosinophils % Basophils % Sodium Potassium Chloride Carbon Dioxide Anion Gap BUN Creatinine Est GFR (CKD-EPI)AfAm Est GFR (CKD-EPI)NonAf POC Glucometer 236 226 Random Glucose Hemoglobin A1c % Calcium Total Bilirubin AST ALT Alkaline Phosphatase Total Protein Albumin Triglycerides Cholesterol Total LDL Cholesterol HDL Cholesterol Total Amylase Lipase Urine Color Yellow Urine Appearance Slightly Urine pH 7.0 Urine Protein 2+ H Urine Glucose (UA) 2+ Urine Ketones Trace Urine Blood Trace-intact Urine Nitrite Negative Urine Bilirubin Negative Urine Urobilinogen 0.2 Ur Leukocyte Esterase Negative Urine RBC 0-2 Urine WBC 0-2 Ur Transition Epith Cell Few 02/13/19 02/14/19 02/14/19 21:20 06:20 06:20 WBC 6.0 RBC 4.64 Hgb 14.4 Hct 43.3 MCV 93.3 MCH 31.0 MCHC 33.2 RDW 13.6 Plt Count 225 MPV 9.1 Absolute Neuts (auto) 2.5 Neutrophils % 42.1 L D Lymphocytes % 44.4 H D Monocytes % 10.9 H Eosinophils % 1.9 D Basophils % 0.7 Sodium 136 Potassium 4.1 Chloride 105 Carbon Dioxide 24 Anion Gap 7 L BUN 13.0 Creatinine 0.8 Est GFR (CKD-EPI)AfAm 119.04 Est GFR (CKD-EPI)NonAf 102.71 POC Glucometer 228 Random Glucose 191 H Hemoglobin A1c % Calcium 8.5 Total Bilirubin 0.9 AST 57 H ALT 117 H Alkaline Phosphatase 58 Total Protein 6.5 Albumin 3.4 Triglycerides Cholesterol Total LDL Cholesterol HDL Cholesterol Total Amylase Lipase Urine Color Urine Appearance Urine pH Urine Protein Urine Glucose (UA) Urine Ketones Urine Blood Urine Nitrite Urine Bilirubin Urine Urobilinogen Ur Leukocyte Esterase Urine RBC Urine WBC Ur Transition Epith Cell 02/14/19 02/14/19 06:20 06:38 WBC RBC Hgb Hct MCV MCH MCHC RDW Plt Count MPV Absolute Neuts (auto) Neutrophils % Lymphocytes % Monocytes % Eosinophils % Basophils % Sodium Potassium Chloride Carbon Dioxide Anion Gap BUN Creatinine Est GFR (CKD-EPI)AfAm Est GFR (CKD-EPI)NonAf POC Glucometer 210 Random Glucose Hemoglobin A1c % Calcium Total Bilirubin AST ALT Alkaline Phosphatase Total Protein Albumin Triglycerides Cholesterol Total LDL Cholesterol HDL Cholesterol Total Amylase Lipase 280 Urine Color Urine Appearance Urine pH Urine Protein Urine Glucose (UA) Urine Ketones Urine Blood Urine Nitrite Urine Bilirubin Urine Urobilinogen Ur Leukocyte Esterase Urine RBC Urine WBC Ur Transition Epith Cell Active Medications Generic Name Dose Route Start Last Admin Trade Name Antonella PRN Reason Stop Dose Admin Aspirin 81 mg 02/14/19 10:00 02/14/19 09:41 Asa - PO 81 mg DAILY JASON Administration Heparin Sodium (Porcine) 5,000 unit 02/13/19 10:00 02/14/19 09:39 Heparin - SQ 5,000 unit BID JASON Administration Sodium Chloride 1,000 mls @ 75 mls/hr 02/13/19 02:00 02/14/19 07:05 Normal Saline - IV 75 mls/hr ASDIR JASON Administration Insulin Aspart 1 vial 02/13/19 14:57 02/14/19 07:05 Novolog Vial Sliding Scale - SQ 2 unit BIDAC JASON Administration Protocol Insulin Detemir 30 units 02/13/19 22:00 02/13/19 21:22 Levemir Vial SQ 30 units BID JASON Administration Morphine Sulfate 2 mg 02/13/19 11:29 02/14/19 09:41 Morphine Injection - IVPUSH 2 mg Q4H PRN Administration PAIN LEVEL 6-10 Ondansetron HCl 4 mg 02/13/19 01:51 Zofran Injection IVPUSH 02/16/19 23:59 Q6H PRN NAUSEA Ramipril 2.5 mg 02/14/19 10:00 02/14/19 09:41 Altace - PO 2.5 mg DAILY JASON Administration ASSESSMENT/PLAN: The patient is a 54 year old male with a past medical history of DM, HTN, HDL, asthma,bronchitis, smoker and pancreatitis, who presents to ER complaining of sharp abdominal pain and nausea, admitted with pancreatitis. * Abdominal pain-likely due to pancreatitis - improved now - CT abdomen consistent with pancreatitis - Lipase 446> 280 - Amylase 77 - fasting lipids TRI -1006 - will start on clears and advance low fat diet as tolerated - pain control - will hold off IV pain meds - will try with PO meds * mild leukocytosis - likely reactive - resolved - afebrile, asymptomatic - cxr- No acute pathology -UA no pyuria * DM- - will cont on Lispro sliding scale - FS AC& HS -checked Hgb Alc 7.6 - will hold off home dose Glipizide -will resume on home dose Glargene once PO aniceto well * Smoker - smoking cessation counselling done - ref Nicotine patch * HDL -- fasting lipids reviewed, TRI 1006 - will hold off on Statin until PO aniceto well * HTN- BP stable - will cont on Lisinopril * Transaminitis, likely due to fatty liver - improving -asymptomatic - will f/u on LFT's *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 - New Patient This patient is new to me today: No - Critical Care Critical Care patient: No
[2019-02-15] MEDS: INSULIN SLIDING SCALE (NOVOLOG) 1 VIAL SQ SCH ×2 (06:26→17:07)
[2019-02-15 07:50] LABS: BASO % 0.6 % (0-2.0); EOS % 2.6 % (0-4.5); HEMOGLOBIN 15.2 GM/dl (11.7-16.9); LYMPH % 44.7 % (8-40); MCH 31.2 pg (25.7-33.7); MEAN CELL VOLUME 94.6 fl (80-96); MEAN PLT VOLUME 8.7 fl (7.5-11.1); MONO % 12.3 % (3.8-10.2); NEUT % 39.8 % (42.8-82.8); PLATELET COUNT 253 K/MM3 (134-434); RBC 4.87 M/mm3 (4.00-5.60); WHITE BLOOD COUNT 5.4 K/mm3 (4.0-10.8)
[2019-02-15 08:27] LABS: ALBUMIN 3.5 g/dl (3.4-5.0); BILIRUBIN,TOTAL 0.6 mg/dl (0.2-1); CALCIUM 9.2 mg/dl (8.5-10); CREATININE 0.9 mg/dl (0.55-1.3); POTASSIUM 4.4 mmol/L (3.5-5.1); TOT PROT 6.9 g/dl (6.4-8.2)
[2019-02-15 08:29] LABS: BILIRUBIN,DIRECT 0.1 mg/dL (0.0-0.2)
[2019-02-15] MEDS: INSULIN (LEVEMIR) 100 UNITS/ML UNITS SQ SCH (09:10)
[2019-02-15] MEDS: HEPARIN NA (PORCINE) 5,000 UNITS/ML 1ML VIAL SQ SCH (10:52)
[2019-02-15] MEDS: ASPIRIN 81 MG CHEWABLE TABLETS PO SCH (10:52)
[2019-02-15] MEDS: RAMIPRIL 2.5 MG CAPSULE (FP) PO SCH (10:52)
[2019-02-15 14:43] VITALS: BP 154/75; PULSE 77; TEMP 98.1
[2019-02-15] MEDS ORDERED: INSULIN (NOVOLOG) ASPART 100 UNITS/ML 10ML VIAL ONE (17:05)
--- NOTE | 2019-02-15 18:00 | DS ---
Physical Exam: SUBJECTIVE: Patient seen and examined OBJECTIVE: Vital Signs Period Temp Pulse Resp BP Sys/Perez Pulse Ox Last 24 Hr 97.6 F-98.3 F 64-77 18-20 120-154/62-75 96-98 PHYSICAL EXAM GENERAL: The patient is awake, alert, and fully oriented, in no acute distress. HEAD: Normal with no signs of trauma. EYES: PERRL, extraocular movements intact, sclera anicteric, conjunctiva clear. ENT: Ears normal, nares patent, oropharynx clear without exudates, moist mucous membranes. NECK: Trachea midline, full range of motion, supple. LUNGS: Breath sounds equal, clear to auscultation bilaterally, no wheezes, no crackles, no accessory muscle use. HEART: Regular rate and rhythm, S1, S2 without murmur, rub or gallop. ABDOMEN: Soft, nontender, nondistended, normoactive bowel sounds, no guarding, no rebound, no hepatosplenomegaly, no masses. EXTREMITIES: 2+ pulses, warm, well-perfused, no edema. NEUROLOGICAL: Cranial nerves II through XII grossly intact. Normal speech, gait not observed. PSYCH: Normal mood, normal affect. SKIN: Warm, dry, normal turgor, no rashes or lesions noted. LABS Laboratory Results - last 24 hr 02/14/19 02/15/19 02/15/19 21:23 06:25 07:10 WBC RBC Hgb Hct MCV MCH MCHC RDW Plt Count MPV Absolute Neuts (auto) Neutrophils % Lymphocytes % Monocytes % Eosinophils % Basophils % Sodium 137 Potassium 4.4 Chloride 105 Carbon Dioxide 25 Anion Gap 7 L BUN 12.0 Creatinine 0.9 Est GFR (CKD-EPI)AfAm 113.41 Est GFR (CKD-EPI)NonAf 97.85 POC Glucometer 174 183 Random Glucose 180 H Calcium 9.2 Magnesium 2.0 Total Bilirubin 0.6 Direct Bilirubin 0.1 AST 46 H ALT 96 H Alkaline Phosphatase 56 Total Protein 6.9 Albumin 3.5 02/15/19 02/15/19 07:10 16:29 WBC 5.4 RBC 4.87 Hgb 15.2 Hct 46.0 MCV 94.6 MCH 31.2 MCHC 33.0 RDW 14.0 Plt Count 253 MPV 8.7 Absolute Neuts (auto) 2.1 Neutrophils % 39.8 L Lymphocytes % 44.7 H Monocytes % 12.3 H Eosinophils % 2.6 Basophils % 0.6 Sodium Potassium Chloride Carbon Dioxide Anion Gap BUN Creatinine Est GFR (CKD-EPI)AfAm Est GFR (CKD-EPI)NonAf POC Glucometer 254 Random Glucose Calcium Magnesium Total Bilirubin Direct Bilirubin AST ALT Alkaline Phosphatase Total Protein Albumin HOSPITAL COURSE: Date of Admission:02/13/19 Date of Discharge: 02/15/19 Minutes to complete discharge: 35 Discharge Summary Reason For Visit: PANCREATITIS Current Active Problems Pancreatitis (Acute) Condition: Stable - Instructions - Home Medications Comprehensive Discharge Medication List: Ambulatory Orders metFORMIN HCL [Glucophage] 1,000 mg PO BID 10/29/12 Atorvastatin Ca [Lipitor] 80 mg PO HS 10/19/15 Aspirin [ASA -] 81 mg PO DAILY 10/20/17 Fenofibrate Nanocrystallized [Fenofibrate] 160 mg PO HS 02/12/19 Glipizide 5 mg PO BID 02/12/19 Insulin Glargine,Hum.rec.anlog [Basaglar Kwikpen U-100] 60 unit SQ BID 02/12/19 Insulin Regular, Human [Humulin R U-500 Kwikpen] 30 unit SQ ASDIR 02/12/19 Ramipril 2.5 mg PO DAILY 02/12/19 This patient is new to me today: Yes Date on this admission: 02/15/19 Emergency Visit: Yes ED Registration Date: 02/13/19 Care time: The patient presented to the Emergency Department on the above date and was hospitalized for further evaluation of their emergent condition. Critical Care patient: No - Discharge Referral Referred to [facility] Med [facility].C[facility] No
== END 2019-02-15 18:39 | disposition home or self-care (01) | DRG 440 ==
LOC: FER 21:17 → FM/S 02-13 01:03 → UNDOADMIN 02-13 01:03
PROVIDERS: ADMIT Internal Medicine; ATTEND Nurse Practitioner Acute Care
DX: K85.90 Acute pancreatitis without necrosis or infection, unspecified (principal); E11.9 Type 2 diabetes mellitus without complications; J45.909 Unspecified asthma, uncomplicated; Z79.4 Long term (current) use of insulin; I10 Essential (primary) hypertension; E78.5 Hyperlipidemia, unspecified; R74.0 Nonspecific elevation of levels of transaminase and lactic acid dehydrogenase [LDH]; K76.0 Fatty (change of) liver, not elsewhere classified; I72.2 Aneurysm of renal artery
CPT/HCPCS: 36415; 71045-TC-FY; 74176-TC; 80048; 80053; 80061; 80076; 81003; 81015; 82150; 82962; 83036; 83690; 83735; 84478; 85025; 85027; 93005; 99283-25; J1644; J7030

== ENCOUNTER 2019-06-28 11:30 | Inpatient (IN) | payer OTHER ==
[2019-06-28] MEDS ORDERED: LACTATED RINGERS SOLUTION 1000 ML INFUS.BAG IV ONE (14:01)
[2019-06-28] MEDS ORDERED: morphine CARPU-JECT 4 MG/1 ML DISP.SYRIN IVPUSH ONE ×2 (14:01→18:11)
--- NOTE | 2019-06-28 14:03 | PDOC ---
History of Present Illness - General Chief Complaint: Pain, Acute Stated Complaint: PAIN Time Seen by Provider: 06/28/19 13:45 - History of Present Illness Initial Comments: Mr. Carrion is a 54 y/o male hx of HLD (hypertriglyceridemia), DM, multiple episodes of pancreatitis, s/p appy and taryn, presenting today with epigastric abdominal pain that started on Friday. Sent in by Dr. Dennis's office today. Reports that it has been worsening. Describes pain as epigastric in location and radiating to the LLQ and suprapubic area and to the back. Describes the pain as sharp and moving around. Reports subjective fever yesterday. Reports constipation over the past couple of days, and 1 episode of diarrhea today non bloody. Reports nausea w/o vomiting. SocHx: sober for 25 years, heavy drinker for 10 years prior to that SurgHx: s/p appy and taryn Past History - Past Medical History Allergies/Adverse Reactions: Allergies Allergy/AdvReac Type Severity Reaction Status Date / Time No Known Allergies Allergy Verified 06/28/19 11:54 Home Medications: Ambulatory Orders metFORMIN HCL [Glucophage] 1,000 mg PO BID 10/29/12 Atorvastatin Ca [Lipitor] 80 mg PO HS 10/19/15 Aspirin [ASA -] 81 mg PO DAILY 10/20/17 Fenofibrate Nanocrystallized [Fenofibrate] 160 mg PO HS 02/12/19 Glipizide 5 mg PO BID 02/12/19 Insulin Glargine,Hum.rec.anlog [Basaglar Kwikpen U-100] 60 unit SQ BID 02/12/19 Insulin Regular, Human [Humulin R U-500 Kwikpen] 30 unit SQ ASDIR 02/12/19 Ramipril 2.5 mg PO DAILY 02/12/19 Anemia: No Asthma: No Cancer: No Cardiac Disorders: No CVA: No COPD: No CHF: No Dementia: No Diabetes: Yes GI Disorders: Yes (Pancreatitis) Disorders: No HTN: No Hypercholesterolemia: Yes (and hyperlipidemia) Liver Disease: No Seizures: No Thyroid Disease: No - Surgical History Abdominal Surgery: No Appendectomy: Yes Cardiac Surgery: No Cholecystectomy: Yes Lung Surgery: No Neurologic Surgery: No Orthopedic Surgery: No - Immunization History Immunization Up to Date: Yes - Psycho Social/Smoking Cessation Hx Smoking Status: Yes Smoking History: Current every day smoker Have you smoked in the past 12 months: Yes Number of Cigarettes Smoked Daily: 10 If you are a former smoker, when did you quit?: 3 days ago, Cigars Per Day: 0 Information on smoking cessation initiated: No 'Breaking Loose' booklet given: 10/20/17 Hx Alcohol Use: No Drug/Substance Use Hx: No Substance Use Type: None Hx Substance Use Treatment: No Abd/GI Specific PMHX - Complaint Specific PMHX GERD: No GI Ulcer Disease: No Review of Systems - Review of Systems Comments:: GENERAL/CONSTITUTIONAL: Reports fever. No weakness._ HEAD, EYES, EARS, NOSE AND THROAT: No change in vision. No change in hearing. No sore throat._ CARDIOVASCULAR: No chest pain or shortness of breath_ RESPIRATORY: Denies cough, hemoptysis_ GASTROINTESTINAL: Reports nausea, diarrhea. No vomiting. Reports abdominal pain. GENITOURINARY: No dysuria, frequency, or change in urination._ MUSCULOSKELETAL: No joint or muscle swelling or pain. No neck or back pain._ SKIN: No rash_ NEUROLOGIC: No headache, vertigo, loss of consciousness, or change in strength/ sensation._ ENDOCRINE: No increased thirst. No abnormal weight change_ HEMATOLOGIC/LYMPHATIC: No anemia, easy bleeding, or history of blood clots._ ALLERGIC/IMMUNOLOGIC: No hives or skin allergy._ *Physical Exam - Vital Signs Last Vital Signs Temp Pulse Resp BP Pulse Ox 98.4 F 105 H 18 137/74 100 06/28/19 11:56 06/28/19 11:56 06/28/19 11:56 06/28/19 11:56 06/28/19 11:56 - Physical Exam GENERAL: Awake, alert, and oriented to person/place/time, in no acute distress_ HEAD: No signs of trauma, normoc ephalic, atraumatic _ EYES: PERRLA, EOMI, sclera anicteric, conjunctiva clear_ ENT: Hearing grossly normal, nares patent, oropharynx clear without exudates. No uvular deviation. Moist mucosa_ NECK: Normal ROM, supple, no lymphadenopathy, JVD, or masses_ LUNGS: No distress, speaks in full sentences, clear to auscultation bilaterally _ HEART: Regular rate and rhythm, normal S1 and S2, no murmurs appreciated, peripheral pulses normal and equal bilaterally._ ABDOMEN: Soft, diffuse TTP worse in the epigastric and LLQ areas, normoactive bowel sounds. No guarding, no rebound. No masses_ BACK: No CVA TTP. EXTREMITIES: Normal inspection, Normal range of motion, no edema. No clubbing or cyanosis_ NEUROLOGICAL: Cranial nerves II through XII grossly intact. Normal speech, normal gait, no focal sensorimotor deficits _ SKIN: Warm, Dry, normal turgor, no rashes or lesions noted_ ED Treatment Course - LABORATORY CBC & Chemistry Diagram: 06/28/19 14:30 06/28/19 22:04 - RADIOLOGY Radiology Studies Ordered: Category Date Time Status CHEST PA & LAT [RAD] Stat Radiology 06/28/19 13:54 Ordered Medical Decision Making - Medical Decision Making 06/28/19 14:08 54M multiple episodes of pancreatitis presentnig today with epigastric abdominal pain that started 2 days ago. Positive subjective fever, nausea, diarrhea. -cbc, cmp, lactic, lipase -ekg, trop, cxr -ua, ucx -ldh -morphine -LR fluids -ct abd w/ IV contrast 06/28/19 16:10 Labs reviewed. Laboratory Tests 06/28/19 06/28/19 06/28/19 14:30 14:30 14:30 WBC 10.5 H RBC 4.99 Hgb 15.8 Hct 46.2 MCV 92.6 MCH 31.6 MCHC 34.1 RDW 14.4 Plt Count 265 MPV 9.3 Absolute Neuts (auto) 6.2 Neutrophils % 58.7 D Lymphocytes % 28.7 D Monocytes % 10.0 Eosinophils % 1.7 Basophils % 0.9 Nucleated RBC % 0 Sodium 138 Potassium 5.2 H Chloride 108 H Carbon Dioxide 22 Anion Gap 7 L BUN 16.1 Creatinine 0.9 Est GFR (CKD-EPI)AfAm 113.41 Est GFR (CKD-EPI)NonAf 97.85 Random Glucose 101 Lactic Acid 0.2 L Calcium 8.3 L Total Bilirubin 0.7 AST 56 H ALT No Result Required. Alkaline Phosphatase 61 LD Total Total Protein 7.9 Albumin 3.3 L Triglycerides Cholesterol Total LDL Cholesterol HDL Cholesterol Lipase Urine Color Urine Appearance Urine pH Ur Specific [place] Urine Protein Urine Glucose (UA) Urine Ketones Urine Blood Urine Nitrite Urine Bilirubin Urine Urobilinogen Ur Leukocyte Esterase Urine WBC (Auto) Urine RBC (Auto) Urine Casts (Auto) U Epithel Cells (Auto) Urine Bacteria (Auto) 06/28/19 06/28/19 06/28/19 14:30 14:30 14:30 WBC RBC Hgb Hct MCV MCH MCHC RDW Plt Count MPV Absolute Neuts (auto) Neutrophils % Lymphocytes % Monocytes % Eosinophils % Basophils % Nucleated RBC % Sodium Potassium Chloride Carbon Dioxide Anion Gap BUN Creatinine Est GFR (CKD-EPI)AfAm Est GFR (CKD-EPI)NonAf Random Glucose Lactic Acid Calcium Total Bilirubin AST ALT Alkaline Phosphatase LD Total 339 H Total Protein Albumin Triglycerides Cholesterol Total LDL Cholesterol HDL Cholesterol Lipase 177 Urine Color Yellow Urine Appearance Clear Urine pH 5.5 Ur Specific [place] 1.023 Urine Protein 3+ H Urine Glucose (UA) Trace Urine Ketones Negative Urine Blood Negative Urine Nitrite Negative Urine Bilirubin Negative Urine Urobilinogen 0.2 Ur Leukocyte Esterase Negative Urine WBC (Auto) 2 Urine RBC (Auto) 1 Urine Casts (Auto) 5 U Epithel Cells (Auto) 1.3 Urine Bacteria (Auto) 4.1 06/28/19 14:30 WBC RBC Hgb Hct MCV MCH MCHC RDW Plt Count MPV Absolute Neuts (auto) Neutrophils % Lymphocytes % Monocytes % Eosinophils % Basophils % Nucleated RBC % Sodium Potassium Chloride Carbon Dioxide Anion Gap BUN Creatinine Est GFR (CKD-EPI)AfAm Est GFR (CKD-EPI)NonAf Random Glucose Lactic Acid Calcium Total Bilirubin AST ALT Alkaline Phosphatase LD Total Total Protein Albumin Triglycerides > 1000 H Cholesterol 275 H Total LDL Cholesterol 62 HDL Cholesterol 22 L Lipase Urine Color Urine Appearance Urine pH Ur Specific [place] Urine Protein Urine Glucose (UA) Urine Ketones Urine Blood Urine Nitrite Urine Bilirubin Urine Urobilinogen Ur Leukocyte Esterase Urine WBC (Auto) Urine RBC (Auto) Urine Casts (Auto) U Epithel Cells (Auto) Urine Bacteria (Auto) 06/28/19 16:11 Admit to ICU. D/w Dr. Dennis. Pt has hypertriglyceridemia. Hx of chronic pancreatitis. Will start on insulin drip and D5NS maintenance fluids. Discharge - Discharge Information Problems reviewed: Yes Clinical Impression/Diagnosis: Pancreatitis Qualifiers: Chronicity: acute Pancreatitis type: unspecified pancreatitis type Acute pancreatitis complication: unspecified Qualified Code(s): K85.90 - Acute pancreatitis without necrosis or infection, unspecified Condition: Stable - Admission Yes - Follow up/Referral - Patient Discharge Instructions - Post Discharge Activity
[2019-06-28] MEDS ORDERED: morphine SULFATE 4 MG/ML VIAL ONE (14:06)
--- NOTE | 2019-06-28 15:02 | PDOC ---
Documentation entered by Astrid Chavez SCRIBE, acting as scribe for Diane Purvis DO. Diane Purvis DO: This documentation has been prepared by the Scott lopez Nirvannie, SCRIBE, under my direction and personally reviewed by me in its entirety. I confirm that the documentation accurately reflects all work, treatment, procedures, and medical decision making performed by me. Attending Attestation - Resident Resident Name: PhiDain - ED Attending Attestation I have performed the following: I have examined & evaluated the patient, The case was reviewed & discussed with the resident, I agree w/resident's findings & plan, Exceptions are as noted - HPI HPI: 06/28/19 14:57 The patient is a 54 year old male, with a significant past medical history of HLD, DM, recurrent pancreatitis, who presents to the emergency department with 3 days of band-like upper abdominal pain. Patient described his pain as sharp, radiating to the back with associated nausea without emesis, diarrhea (x1, nonbloody), subjective fevers and chills. He denies any recent alcoholic beverages. He denies recent dysuria, frequency, urgency or hematuria. He denies any testicular pain. Allergies: NKDA Past surgical history: Appendectomy, Cholecystectomy. Primary Care Physician:Dr. Dennis - Physicial Exam PE: 06/28/19 14:57 Constitutional: Awake, alert, oriented. No acute distress. Head: Normocephalic. Atraumatic Eyes: PERRL. EOMI. Conjunctivae are not pale. ENT: Mucous membranes are moist and intact. Posterior pharynx without exudates or erythema. Uvula midline. Neck: Supple. Full ROM. No lymphadenopathy. Cardiovascular: Regular rate. Regular rhythm. S1, S2 regular. Distal pulses are 2+ and symmetric. Pulmonary/Chest: No evidence of respiratory distress. Clear to auscultation bilaterally No wheezing, rales or rhonchi. Abdominal: +Diffuse upper abdominal, epigastric tenderness. Soft and non- distended. No rebound, guarding or rigidity. No organomegaly. No palpable masses. Good bowel sounds. Back: No CVA tenderness. Musculoskeletal: No edema. No cyanosis. No clubbing. Full range of motion in all extremities. No calf tenderness. Radial/pedal pulses are intact and 2+ bilaterally Skin: Skin is warm and dry. No petechiae. No purpura. Neurological: Alert and oriented to person, place, and time. Cranial nerves II -XII are grossly intact. Normal speech. Strength is grossly symmetric. No sensory deficits. Psychiatric: Good eye contact. Normal interaction, affect and behavior. - Medical Decision Making 06/28/19 14:59 a/p: 54yo male with epigastric pain since friday -pt with hx of chronic pancreatitis -states he feels like his pancreas is flaring up again -pt states nausea this am, and 1 episode of diarrhea, no vomiting -has been drinking liquids and eating soup, was able to eat [place] soup, coffee, tea -states pain goes to his back -will send labs, will hydrate, pain control, lipase -pt with mild epigastric ttp, no rebound or guarding, no peritoneal signs -pt ambulatory in the ER 06/28/19 15:54 lipase neg triglycerides elevated 06/28/19 16:09 pt with triglycerides >[address] Dennis who accepts pt to service requests icu admission, insulin gtt, dr. yoder consult, ivf, ct scan
[2019-06-28 15:03] LABS: BASO % 0.9 % (0-2.0); EOS % 1.7 % (0-4.5); HEMATOCRIT 46.2 % (35.4-49); HEMOGLOBIN 15.8 GM/dL (11.7-16.9); LYMPH % 28.7 % (8-40); MCH 31.6 pg (25.7-33.7); MCHC 34.1 g/dl (32.0-35.9); MEAN CELL VOLUME 92.6 fl (80-96); MEAN PLT VOLUME 9.3 fl (7.5-11.1); NEUT % 58.7 % (42.8-82.8); PLATELET COUNT 265 K/MM3 (134-434); RBC 4.99 M/mm3 (4.00-5.60); RDW 14.4 % (11.9-15.9); WHITE BLOOD COUNT 10.5 K/mm3 (4.0-10.0)
[2019-06-28 15:07] LABS: EPI CELLS 1.3 /HPF (0-5/HPF); HYALINE CASTS 5 /lpf (0-8); PH,URINE 5.5 (5.0-8.0); URINE APPEARANCE CLEAR; URINE BACTERIA 4.1 /hpf (NEGATIVE); URINE BILIRUBIN NEGATIVE (NEGATIVE); URINE COLOR YELLOW; URINE GLUCOSE (UA) TRACE (NEGATIVE); URINE KETONE NEGATIVE (NEGATIVE); URINE LEUK ESTERASE NEGATIVE (NEGATIVE); URINE NITRITE NEGATIVE (NEGATIVE); URINE PROTEIN 3+ (NEGATIVE); URINE RBC 1 /hpf (0-4); URINE UROBILINOGEN 0.2 mg/dL (0.2-1.0); URINE WBC 2 /hpf (0-5)
[2019-06-28 15:36] LABS: ALBUMIN 3.3 g/dl (3.4-5.0); ALK PHOS 61 U/L (45-117); ANION GAP 7 MMOL/L (8-16); BILIRUBIN,TOTAL 0.7 mg/dL (0.2-1); BLOOD UREA NITROGEN 16.1 mg/dL (7-18); CALCIUM 8.3 mg/dL (8.5-10.1); CHLORIDE 108 mmol/L (98-107); CO2 22 mmol/L (21-32); CREATININE 0.9 mg/dL (0.55-1.3); GLUCOSE,RANDOM 101 mg/dL (74-106); POTASSIUM 5.2 mmol/L (3.5-5.1); SGOT/AST 56 U/L (15-37); SODIUM 138 mmol/L (136-145); TOT PROT 7.9 g/dl (6.4-8.2)
[2019-06-28 15:37] LABS: CHOLESTEROL 275 mg/dL (50-200); HDL CHOLESTEROL 22 mg/dL (40-60); LDL CHOLESTEROL (ONLY SJRH) 62 mg/dL (5-100)
[2019-06-28] MEDS ORDERED: DEXTROSE 5%-NORMAL SALINE 1,000 ML IV SCH (16:15)
--- NOTE | 2019-06-28 17:22 | CONSULT ---
Consultation: REQUESTING PROVIDER: ED Dr Purvis CONSULT REQUEST: We have been asked to medically evaluate this patient for (ICU monitoring). HISTORY OF PRESENT ILLNESS: 54 y/o male hx of HLD (hypertriglyceridemia), DM, HTN,multiple episodes of pancreatitis, s/p appy and taryn, presenting today with epigastric abdominal pain that started on Friday. Pt describes the pain as sharp, intermittent then constant epigastric pain radiating to the LLQ, suprapubic area and to the back. Pain is associated with nausea w/o vomiting and 1 episode of watery brown stool this morning. Pt was last admitted in january for similar episode and discharged with specific dietary/lifestyle modifications and medications to help reduce trygleceride levels and recurrence of disease. According to patient, his job has not allowed him to eat healthy and to exercise; however he admits to being compliant to the medications provided. We were consulted as patient's triglyceride levels are found to be elevated to >1000s indicating the need for an insulin drip for HTGP. Sent in by Dr. Dennis's office today. REVIEW OF SYSTEMS: CONSTITUTIONAL: Absent: fever, chills, diaphoresis, generalized weakness, malaise, loss of appetite, weight change HEENT: Absent: rhinorrhea, nasal congestion, throat pain, throat swelling, difficulty swallowing, mouth swelling, ear pain, eye pain, visual changes CARDIOVASCULAR: Absent: chest pain, syncope, palpitations, irregular heart rate, lightheadedness, peripheral edema RESPIRATORY: Absent: cough, shortness of breath, dyspnea with exertion, orthopnea, wheezing, stridor, hemoptysis GASTROINTESTINAL:abdominal pain, nausea, diarrhea Absent: abdominal distension, vomiting,constipation, melena, hematochezia GENITOURINARY: Absent: dysuria, frequency, urgency, hesitancy, hematuria, flank pain, genital pain MUSCULOSKELETAL: Absent: myalgia, arthralgia, joint swelling, back pain, neck pain SKIN: Absent: rash, itching, pallor HEMATOLOGIC/IMMUNOLOGIC: Absent: easy bleeding, easy bruising, lymphadenopathy, frequent infections ENDOCRINE: Absent: unexplained weight gain, unexplained weight loss, heat intolerance, cold intolerance NEUROLOGIC: Absent: headache, focal weakness or paresthesias, dizziness, unsteady gait, seizure, mental status changes, bladder or bowel incontinence PSYCHIATRIC: Absent: anxiety, depression, suicidal or homicidal ideation, hallucinations. PHYSICAL EXAMINATION Vital Signs - 24 hr 06/28/19 11:56 Temperature 98.4 F Pulse Rate 105 H Respiratory 18 Rate Blood Pressure 137/74 O2 Sat by Pulse 100 Oximetry (%) GENERAL: Awake, alert, and fully oriented, in no acute distress. HEAD: Normal with no signs of trauma. EYES: Pupils equal, round and reactive to light, extraocular movements intact, sclera anicteric, conjunctiva clear. No lid lag. EARS, NOSE, THROAT: oropharynx clear without exudates. Moist mucous membranes. NECK: Normal range of motion, supple without lymphadenopathy, JVD, or masses. LUNGS: Breath sounds equal, clear to auscultation bilaterally. No wheezes, and no crackles. No accessory muscle use. HEART: Regular rate and rhythm, normal S1 and S2 without murmur, rub or gallop. ABDOMEN: Soft,epigastric tenderness, not distended, hypoactive bowel sounds, no guarding, no rebound, no masses. No hepatomegaly or splenomegaly. MUSCULOSKELETAL: Normal range of motion at all joints. No bony deformities or tenderness. No CVA tenderness. UPPER EXTREMITIES: 2+ pulses, warm, well-perfused. No cyanosis. No clubbing. Cap refill <2 seconds. No peripheral edema. LOWER EXTREMITIES: 2+ pulses, warm, well-perfused. No calf tenderness. No peripheral edema. PSYCHIATRIC: Cooperative. Good eye contact. Appropriate mood and affect. SKIN: Warm, dry, normal turgor, no rashes or lesions noted. Laboratory Results - last 24 hr 06/28/19 06/28/19 06/28/19 14:30 14:30 14:30 WBC 10.5 H RBC 4.99 Hgb 15.8 Hct 46.2 MCV 92.6 MCH 31.6 MCHC 34.1 RDW 14.4 Plt Count 265 MPV 9.3 Absolute Neuts (auto) 6.2 Neutrophils % 58.7 D Lymphocytes % 28.7 D Monocytes % 10.0 Eosinophils % 1.7 Basophils % 0.9 Nucleated RBC % 0 Sodium 138 Potassium 5.2 H Chloride 108 H Carbon Dioxide 22 Anion Gap 7 L BUN 16.1 Creatinine 0.9 Est GFR (CKD-EPI)AfAm 113.41 Est GFR (CKD-EPI)NonAf 97.85 Random Glucose 101 Lactic Acid 0.2 L Calcium 8.3 L Total Bilirubin 0.7 AST 56 H ALT No Result Required. Alkaline Phosphatase 61 LD Total Total Protein 7.9 Albumin 3.3 L Triglycerides Cholesterol Total LDL Cholesterol HDL Cholesterol Lipase Urine Color Urine Appearance Urine pH Ur Specific [place] Urine Protein Urine Glucose (UA) Urine Ketones Urine Blood Urine Nitrite Urine Bilirubin Urine Urobilinogen Ur Leukocyte Esterase Urine WBC (Auto) Urine RBC (Auto) Urine Casts (Auto) U Epithel Cells (Auto) Urine Bacteria (Auto) 06/28/19 06/28/19 06/28/19 14:30 14:30 14:30 WBC RBC Hgb Hct MCV MCH MCHC RDW Plt Count MPV Absolute Neuts (auto) Neutrophils % Lymphocytes % Monocytes % Eosinophils % Basophils % Nucleated RBC % Sodium Potassium Chloride Carbon Dioxide Anion Gap BUN Creatinine Est GFR (CKD-EPI)AfAm Est GFR (CKD-EPI)NonAf Random Glucose Lactic Acid Calcium Total Bilirubin AST ALT Alkaline Phosphatase LD Total 339 H Total Protein Albumin Triglycerides Cholesterol Total LDL Cholesterol HDL Cholesterol Lipase 177 Urine Color Yellow Urine Appearance Clear Urine pH 5.5 Ur Specific [place] 1.023 Urine Protein 3+ H Urine Glucose (UA) Trace Urine Ketones Negative Urine Blood Negative Urine Nitrite Negative Urine Bilirubin Negative Urine Urobilinogen 0.2 Ur Leukocyte Esterase Negative Urine WBC (Auto) 2 Urine RBC (Auto) 1 Urine Casts (Auto) 5 U Epithel Cells (Auto) 1.3 Urine Bacteria (Auto) 4.1 06/28/19 14:30 WBC RBC Hgb Hct MCV MCH MCHC RDW Plt Count MPV Absolute Neuts (auto) Neutrophils % Lymphocytes % Monocytes % Eosinophils % Basophils % Nucleated RBC % Sodium Potassium Chloride Carbon Dioxide Anion Gap BUN Creatinine Est GFR (CKD-EPI)AfAm Est GFR (CKD-EPI)NonAf Random Glucose Lactic Acid Calcium Total Bilirubin AST ALT Alkaline Phosphatase LD Total Total Protein Albumin Triglycerides > 1000 H Cholesterol 275 H Total LDL Cholesterol 62 HDL Cholesterol 22 L Lipase Urine Color Urine Appearance Urine pH Ur Specific [place] Urine Protein Urine Glucose (UA) Urine Ketones Urine Blood Urine Nitrite Urine Bilirubin Urine Urobilinogen Ur Leukocyte Esterase Urine WBC (Auto) Urine RBC (Auto) Urine Casts (Auto) U Epithel Cells (Auto) Urine Bacteria (Auto) Active Medications Generic Name Dose Route Start Last Admin Trade Name Freq PRN Reason Stop Dose Admin Dextrose/Sodium Chloride 1,000 mls @ 125 mls/hr 06/28/19 16:15 D5-Ns - IV ASDIR JASON Insulin Human Regular 100 100 mls @ 8.98 mls/hr 06/28/19 16:15 units/ Sodium Chloride IVPB TITR JASON Protocol 0.1 UNITS/KG/HR ASSESSMENT/PLAN: 54 y/o male hx of HLD (hypertriglyceridemia), DM, HTN, multiple episodes of pancreatitis, s/p appy and taryn, presenting today with epigastric abdominal pain, found to have HTGP Neuro: - AAOx3 - monitor CV: - BP 137/74mmHg, HR 105 - Hx HTN - normotensive. hold bp meds for now Pulm: - no active issues - satting 100% on RA -monitor GI: - multiple episodes pancreatitis - c/o epigastric pain, found to have HTGP. triglyceride level 2057 - CT AP with contrast : acute pancreatitis of the distal body with mild inflammation. fatty liver evident as well. - started on insulin drip at 0.1 unit/kg/h - check triglyceride level every 12h - BGM every hour - current potassium 5.2. f/u BMP at 22:00 - D5W@ 150/hr - pain control with morphine 1mg Q6H for 6-10 pain Endo: - hx of DM - on insulin drip - BGM - hold homr meds renal: - BUN/Cr 16.1/0.9 - pt urinating without issues - monitor Heme/onc : - H&H15.8/46.2 - monitor FEN: - D5W @150cc/h - monitor lytes - NPO L/T/D - peripheral IVs PPX: lovenox daily Dispo: We will continue to follow the patient. Visit type - Emergency Visit Emergency Visit: Yes ED Registration Date: 06/28/19 Care time: The patient presented to the Emergency Department on the above date and was hospitalized for further evaluation of their emergent condition. - New Patient This patient is new to me today: No - Critical Care Critical Care patient: Yes Total Critical Care Time (in minutes): 36 Critical Care Statement: The care of this patient involved high complexity decision making to prevent further life threatening deterioration of the patien t's condition and/or to evaluate & treat vital organ system(s) failure or risk of failure. ATTENDING PHYSICIAN STATEMENT I saw and evaluated the patient. I reviewed the resident's note and discussed the case with the resident. I agree with the resident's findings and plan as documented. SUBJECTIVE: OBJECTIVE: ASSESSMENT AND PLAN:
[2019-06-28 17:27] LABS: TRIGLYCERIDES 2058 mg/dL (0-150)
[2019-06-28] MEDS: INSULIN REGULAR 100 UNITS in SODIUM CHLORIDE 99 ML IVPB SCH (17:32)
[2019-06-28] MEDS ORDERED: MORPHINE SULFATE 2 MG/ML VIAL IVPUSH PRN (18:14)
[2019-06-28] MEDS ORDERED: ACETAMINOPHEN 1000 MG/100 ML VIAL (NON FORMULARY) IVPB PRN (18:21)
[2019-06-28] MEDS ORDERED: DEXTROSE 50%-WATER - 25 GM/50 ML VIAL IVPUSH ONE (18:35)
[2019-06-28] MEDS ORDERED: DEXTROSE 5%-WATER - 1,000 ML IV SCH (21:15)
[2019-06-28] MEDS ORDERED: MORPHINE SULFATE 2 MG/ML VIAL ONE (21:46)
[2019-06-28 22:53] LABS: BLOOD UREA NITROGEN 15.5 mg/dL (7-18); CALCIUM 7.9 mg/dL (8.5-10.1); MAGNESIUM 2.5 mg/dL (1.8-2.4); PHOSPHOROUS 2.5 mg/dL (2.5-4.9); POTASSIUM 4.1 mmol/L (3.5-5.1)
[2019-06-28 23:05] LABS: CHOLESTEROL 266 mg/dL (50-200); HDL CHOLESTEROL 20 mg/dL (40-60); LDL CHOLESTEROL (ONLY SJRH) 65 mg/dL (5-100); TRIGLYCERIDES 1693 mg/dL (0-150)
[2019-06-28] MEDS ORDERED: DEXTROSE 5%-WATER - 1,000 ML with POTASSIUM CHLORIDE 20 MEQ IVPB SCH (23:49)
[2019-06-29] MEDS ORDERED: DEXTROSE 5%-WATER - 1,000 ML with POTASSIUM CHLORIDE 20 MEQ IVPB SCH (02:55)
[2019-06-29] MEDS ORDERED: ACETAMINOPHEN 1000 MG/100 ML VIAL (NON FORMULARY) IVPB PRN (02:56)
[2019-06-29] MEDS ORDERED: ACETAMINOPHEN 1000 MG/100 ML VIAL (NON FORMULARY) IVPB SCH (03:00)
[2019-06-29] MEDS: MORPHINE SULFATE 2 MG/ML VIAL IVPUSH PRN ×2 (04:09→23:44)
[2019-06-29 07:08] LABS: BASO % 0.6 % (0-2.0); EOS % 3.6 % (0-4.5); HEMATOCRIT 43.2 % (35.4-49); HEMOGLOBIN 14.6 GM/dL (11.7-16.9); LYMPH % 36.5 % (8-40); MCH 31.4 pg (25.7-33.7); MCHC 33.9 g/dl (32.0-35.9); MEAN CELL VOLUME 92.7 fl (80-96); MEAN PLT VOLUME 9.2 fl (7.5-11.1); MONO % 11.3 % (3.8-10.2); PLATELET COUNT 257 K/MM3 (134-434); RBC 4.66 M/mm3 (4.00-5.60); RDW 14.4 % (11.9-15.9); WHITE BLOOD COUNT 8.1 K/mm3 (4.0-10.0)
[2019-06-29 07:26] LABS: ALBUMIN 3.1 g/dl (3.4-5.0); BILIRUBIN,TOTAL 0.5 mg/dL (0.2-1); BLOOD UREA NITROGEN 14.3 mg/dL (7-18); CALCIUM 7.9 mg/dL (8.5-10.1); MAGNESIUM 2.5 mg/dL (1.8-2.4); PHOSPHOROUS 2.6 mg/dL (2.5-4.9); POTASSIUM 3.8 mmol/L (3.5-5.1)
[2019-06-29 07:35] LABS: CHOLESTEROL 271 mg/dL (50-200); HDL CHOLESTEROL 22 mg/dL (40-60); LDL CHOLESTEROL (ONLY SJRH) 59 mg/dL (5-100); TRIGLYCERIDES 1433 mg/dL (0-150)
--- NOTE | 2019-06-29 08:14 | HP ---
Admitting History and Physical - Primary Care Physician PCP: Connor Franco - Admission Chief Complaint: ABDOMINAL PAIN SENT BY DR SHERIDAN History of Present Illness: 54 y/o male hx of HLD (hypertriglyceridemia), DM, HTN,multiple episodes of pancreatitis, s/p appy and taryn, presenting today with epigastric abdominal pain that started on Friday. Pt describes the pain as sharp, intermittent then constant epigastric pain radiating to the LLQ, suprapubic area and to the back. Pain is associated with nausea w/o vomiting and 1 episode of watery brown stool this morning. Pt was last admitted in january for similar episode and discharged with specific dietary/lifestyle modifications and medications to help reduce trygleceride levels and recurrence of disease. According to patient , his job has not allowed him to eat healthy and to exercise; however he admits to being compliant to the medications provided. We were consulted as patient's triglyceride levels are found to be elevated to >1000s indicating the need for an insulin drip for HTGP. History Source: Patient - Past Medical History Cardiovascular: Yes: HTN, Hyperlipdemia Gastrointestinal: Yes: Gastritis, Other (H/O PANCREATITIS) Endocrine: Yes: Diabetes Mellitus - Smoking History Smoking history: Current every day smoker Have you smoked in the past 12 months: Yes Aproximately how many cigarettes per day: 10 If you are a former smoker, when did you quit?: 3 days ago, - Alcohol/Substance Use Hx Alcohol Use: No Home Medications - Allergies Allergies/Adverse Reactions: Allergies Allergy/AdvReac Type Severity Reaction Status Date / Time No Known Allergies Allergy Verified 06/28/19 11:54 - Home Medications Home Medications: Ambulatory Orders metFORMIN HCL [Glucophage] 1,000 mg PO BID 10/29/12 Atorvastatin Ca [Lipitor] 80 mg PO HS 10/19/15 Aspirin [ASA -] 81 mg PO DAILY 10/20/17 Fenofibrate Nanocrystallized [Fenofibrate] 160 mg PO HS 02/12/19 Glipizide 5 mg PO BID 02/12/19 Insulin Glargine,Hum.rec.anlog [Basaglar Kwikpen U-100] 60 unit SQ BID 02/12/19 Insulin Regular, Human [Humulin R U-500 Kwikpen] 30 unit SQ ASDIR 02/12/19 Ramipril 2.5 mg PO DAILY 02/12/19 Review of Systems - Review of Systems Constitutional: reports: Weakness Cardiovascular: reports: No Symptoms Respiratory: reports: No Symptoms Gastrointestinal: reports: Abdominal Pain Genitourinary: reports: No Symptoms Musculoskeletal: reports: No Symptoms Endocrine: reports: No Symptoms Hematology/Lymphatic: reports: No Symptoms Psychiatric: reports: No Symptoms Physical Examination Vital Signs: Vital Signs Temperature 98 F 06/29/19 06:00 Pulse Rate 72 06/29/19 06:00 Respiratory Rate 17 06/29/19 06:00 Blood Pressure 130/78 06/29/19 06:00 O2 Sat by Pulse Oximetry (%) 95 06/29/19 02:08 Constitutional: Yes: Mild Distress Cardiovascular: Yes: Regular Rate and Rhythm Respiratory: Yes: WNL Gastrointestinal: Yes: Soft, Tenderness Musculoskeletal: Yes: WNL Edema: No Peripheral Pulses WNL: Yes Integumentary: Yes: WNL Wound/Incision: Yes: Clean/Dry Neurological: Yes: WNL ...Motor Strength: WNL Psychiatric: Yes: WNL Labs: CBC, BMP 06/29/19 05:38 06/29/19 05:38 Problem List - Problems (1) Lipedema Code(s): R60.9 - EDEMA, UNSPECIFIED (2) Pancreatitis Code(s): K85.90 - ACUTE PANCREATITIS WITHOUT NECROSIS OR INFECTION, UNSP Qualifiers: Chronicity: acute Pancreatitis type: unspecified pancreatitis type Acute pancreatitis complication: unspecified Qualified Code(s): K85.90 - Acute pancreatitis without necrosis or infection, unspecified (3) Diabetes Code(s): E11.9 - TYPE 2 DIABETES MELLITUS WITHOUT COMPLICATIONS (4) Pain in the abdomen Code(s): R10.9 - UNSPECIFIED ABDOMINAL PAIN Assessment/Plan SEEN IN ICU FEELS BETTER PAIN 12/02 IV FLUIDS PAIN CONTROL GI/SURGERY CONSULTS ENDOCRINE F/U DM AND TRIGLYCERIDEMIA DVT PROPHYLAXIS OOB TO CHAIR
[2019-06-29] MEDS ORDERED: MORPHINE SULFATE 2 MG/ML VIAL IVPUSH ONE (08:27)
--- NOTE | 2019-06-29 09:35 | CON.GI ---
Consult Consult Specialty:: GI Referred by:: Dr Connor Franco Reason for Consultation:: Pancreatitis - History of Present Illness Chief Complaint: LUQ pain History of Present Illness: Patient seen in the ICU 54 y/o male with past medical history of HLD, DM, HTN, multiple episodes of pancreatitis. Patient complains of having sharp LUQ pain radiating to back and lower abdomen which began on Friday. He states having poor appetite and nausea with LUQ pain and it would worsen when he would ingest food. CTAP in ER shows acute pancreatitis involving distal body and tail of pancreas, hepatomegaly with diffuse fatty infiltration of liver. Labs show severely elevated triglycerides 1433, cholesterol 271, AST 57, and ALT 69. Lipase within normal limits at 177. He admits to alcohol use more than 20 years ago where he would drink a case of beer with friends on the weekend. Denies dysphagia, vomiting, constipation, rectal bleeding or melena. - History Source History Provided By: Patient Limitations to Obtaining History: No Limitations - Past Medical History Cardio/Vascular: Yes: HTN, Hyperlipdemia Gastrointestinal: Yes: Gastritis, Other (H/O PANCREATITIS) Endocrine: Yes: Diabetes Mellitus - Past Surgical History Past Surgical History: Yes: Appendectomy, Cholecystectomy - Alcohol/Substance Use Hx Alcohol Use: No - Smoking History Smoking history: Current every day smoker Have you smoked in the past 12 months: Yes Aproximately how many cigarettes per day: 10 If you are a former smoker, when did you quit?: 3 days ago, - Social History ADL: Independent History of Recent Travel: No Home Medications - Allergies Allergies/Adverse Reactions: Allergies Allergy/AdvReac Type Severity Reaction Status Date / Time No Known Allergies Allergy Verified 06/28/19 11:54 - Home Medications Home Medications: Ambulatory Orders metFORMIN HCL [Glucophage] 1,000 mg PO BID 10/29/12 Atorvastatin Ca [Lipitor] 80 mg PO HS 10/19/15 Aspirin [ASA -] 81 mg PO DAILY 10/20/17 Fenofibrate Nanocrystallized [Fenofibrate] 160 mg PO HS 02/12/19 Glipizide 5 mg PO BID 02/12/19 Insulin Glargine,Hum.rec.anlog [Basaglar Kwikpen U-100] 60 unit SQ BID 02/12/19 Insulin Regular, Human [Humulin R U-500 Kwikpen] 30 unit SQ ASDIR 02/12/19 Ramipril 2.5 mg PO DAILY 02/12/19 Family Medical History Other Family History: Paternal Uncle with Esophageal CA Review of Systems - Review of Systems Constitutional: reports: No Symptoms Eyes: reports: No Symptoms HENT: reports: No Symptoms Neck: reports: No Symptoms Cardiovascular: reports: No Symptoms Respiratory: reports: No Symptoms Gastrointestinal: reports: Abdominal Pain, Nausea Genitourinary: reports: No Symptoms Breasts: reports: No Symptoms Reported Musculoskeletal: reports: No Symptoms Integumentary: reports: No Symptoms Neurological: reports: No Symptoms Endocrine: reports: No Symptoms Hematology/Lymphatic: reports: No Symptoms Psychiatric: reports: No Symptoms Physical Exam-GI Vital Signs: Vital Signs Temperature 98 F 06/29/19 06:00 Pulse Rate 72 06/29/19 06:00 Respiratory Rate 17 06/29/19 06:00 Blood Pressure 130/78 06/29/19 06:00 O2 Sat by Pulse Oximetry (%) 95 06/29/19 02:08 Constitutional: Yes: No Distress, Calm Eyes: Yes: Conjunctiva Clear HENT: Yes: Atraumatic Cardiovascular: Yes: Regular Rate and Rhythm Respiratory: Yes: Regular, CTA Bilaterally Gastrointestinal Inspection: Yes: WNL. No: Ascites, Distention, Hernia, Scars, Other ...Auscultate: Yes: Normoactive Bowel Sounds. No: Hyperactive Bowel Sounds, Hypoactive Bowel Sounds, No Bowel Sounds, Other ...Palpate: Yes: Soft, Tenderness (LUQ, RUQ, lower abdomen), Tenderness, Epigastium. No: Firm/Rigid, Guarding, Hepatomegaly, Mass, Pulsatile Mass, Splenomegaly, Tenderness, Rebound, Other ...Percussion: Yes: Tympanitic. No: Dullness, Fluid Wave, Other Neurological: Yes: Alert, Oriented Psychiatric: Yes: Alert, Oriented Labs: CBC, BMP 06/29/19 05:38 06/29/19 05:38 Active Medications Generic Name Dose Route Start Last Admin Trade Name Freq PRN Reason Stop Dose Admin Chlorhexidine Gluconate 1 applic 06/29/19 22:00 Hibiclens For Decolonization - TP HS JASON Enoxaparin Sodium 40 mg 06/29/19 10:00 Lovenox - SQ DAILY JASON Insulin Human Regular 100 100 mls @ 8.98 mls/hr 06/28/19 16:15 06/29/19 04:18 units/ Sodium Chloride IVPB 0.04 units/kg/hr TITR JASON 3.9 mls/hr Titration Protocol 0.1 UNITS/KG/HR Potassium Chloride 20 meq/ 1,010 mls @ 150 mls/hr 06/29/19 02:55 06/29/19 02: 50 Dextrose IVPB 150 mls/hr ASDIR JASON Administration Morphine Sulfate 1 mg 06/29/19 03:30 06/29/19 04:09 Morphine Sulfate IVPUSH 1 mg Q6H PRN Administration PAIN LEVEL 6-10 Mupirocin 1 applic 06/29/19 10:00 Bactroban Ointment (For Decolonization) - NS 07/04/19 09:59 BID JASON Imaging - Results Cat Scan: Report Reviewed Problem List - Problems (1) Pancreatitis Assessment/Plan: Acute on Chronic Pancreatitis >continue IV hydration >advance diet as tolerated >consider starting Fenofibrate 145mg daily for elevated triglyceride >pain control >check amylase with AM labs >will need to repeat Abdomen/Pelvic CT scan in 3 months to R/O Pancreatic CA Code(s): K85.90 - ACUTE PANCREATITIS WITHOUT NECROSIS OR INFECTION, UNSP Qualifiers: Chronicity: acute Pancreatitis type: unspecified pancreatitis type Acute pancreatitis complication: unspecified Qualified Code(s): K85.90 - Acute pancreatitis without necrosis or infection, unspecified
[2019-06-29] MEDS: ENOXAPARIN NA (PORCINE) 40 MG/0.4 ML DISP.SYRIN SQ SCH (09:56)
[2019-06-29] MEDS: MUPIROCIN 2% TOPICAL OINTMENT FOR DECOLONIZATION NS SCH ×2 (09:56→21:04)
[2019-06-29] MEDS: LACTATED RINGERS SOLUTION 1,000 ML/1,000 ML INFUS.BAG IV SCH ×2 (11:57→21:45)
--- NOTE | 2019-06-29 12:44 | PN ---
Teaching Attending Note Name of Resident: Mary Ann Villatoro ATTENDING PHYSICIAN STATEMENT I saw and evaluated the patient. I reviewed the resident's note and discussed the case with the resident. I agree with the resident's findings and plan as documented. SUBJECTIVE: Pt seen and examined in the ICU. Still with abdominal pain. No fevers, chills. OBJECTIVE: Vital Signs Period Temp Pulse Resp BP Sys/Perez Pulse Ox Last 24 Hr 98 F-98.7 F 72-103 15-21 116-155/73-85 95-97 Intake & Output 06/26/19 06/27/19 06/28/19 06/29/19 23:59 23:59 23:59 23:59 Intake Total 0 885 Output Total 500 Balance 0 385 Weight 89.811 kg 88.36 kg Gen: NAD at rest Heart: RRR Lung: decreased breath sounds at the bases Abd: soft, nontender Ext: no edema CBC, BMP 06/29/19 05:38 06/29/19 05:38 Active Medications Chlorhexidine Gluconate (Hibiclens For Decolonization -) 1 applic TP HS [facility] Enoxaparin Sodium (Lovenox -) 40 mg SQ DAILY [facility] Last Admin: 06/29/19 09:56 Dose: 40 mg Fenofibric Acid (Trilipix -) 135 mg PO DAILY [facility] Insulin Human Regular 100 (units/ Sodium Chloride) 100 mls @ 8.98 mls/hr IVPB TITR [facility]; Protocol Last Titration: 06/29/19 04:18 Dose: 0.04 units/kg/hr, 3.9 mls/hr Lactated Ringer's (Lactated Ringers Solution) 1,000 ml in 1,000 mls @ 200 mls/ hr IV ASDIR [facility] Last Admin: 06/29/19 11:57 Dose: 200 mls/hr Morphine Sulfate (Morphine Sulfate) 1 mg IVPUSH Q6H PRN PRN Reason: PAIN LEVEL 6-10 Last Admin: 06/29/19 04:09 Dose: 1 mg Mupirocin (Bactroban Ointment (For Decolonization) -) 1 applic NS BID JASON Stop: 07/04/19 09:59 Last Admin: 06/29/19 09:56 Dose: 1 applic ASSESSMENT AND PLAN: Acute Pancreatitis Hypertriglyceridemia HTN DM - continue insulin gtt - start fenofibrate - aggressive IVF - montior BGM, triglyceride level - pain control - NPO - ICU monitoring while on insulin gtt
--- NOTE | 2019-06-29 13:26 | PN ---
Physical Exam: SUBJECTIVE: Patient seen and examined. No acute events overnight. Remains on insulin drip. OBJECTIVE: Vital Signs Period Temp Pulse Resp BP Sys/Perez Pulse Ox Last 24 Hr 98 F-98.7 F 72-103 15-21 116-155/73-85 95-97 GENERAL: The patient is awake, alert, and fully oriented, in no acute distress. HEENT: NCAT. No JVD LUNGS: Breath sounds equal, clear to auscultation bilaterally HEART: Regular rate and rhythm, S1, S2 without murmur, rub or gallop. ABDOMEN: Soft, nontender, nondistended, normoactive bowel sounds EXTREMITIES: 2+ pulses, warm, well-perfused, no edema. NEUROLOGICAL: Cranial nerves II through XII grossly intact. PSYCH: Normal mood, normal affect. SKIN: Warm, dry Laboratory Results - last 24 hr 06/28/19 06/28/19 06/28/19 14:30 14:30 14:30 WBC 10.5 H RBC 4.99 Hgb 15.8 Hct 46.2 MCV 92.6 MCH 31.6 MCHC 34.1 RDW 14.4 Plt Count 265 MPV 9.3 Absolute Neuts (auto) 6.2 Neutrophils % 58.7 D Lymphocytes % 28.7 D Monocytes % 10.0 Eosinophils % 1.7 Basophils % 0.9 Nucleated RBC % 0 Sodium 138 Potassium 5.2 H Chloride 108 H Carbon Dioxide 22 Anion Gap 7 L BUN 16.1 Creatinine 0.9 Est GFR (CKD-EPI)AfAm 113.41 Est GFR (CKD-EPI)NonAf 97.85 POC Glucometer Random Glucose 101 Hemoglobin A1c % Lactic Acid 0.2 L Calcium 8.3 L Phosphorus Magnesium Total Bilirubin 0.7 AST 56 H ALT No Result Required. Alkaline Phosphatase 61 LD Total Total Protein 7.9 Albumin 3.3 L Triglycerides Cholesterol Total LDL Cholesterol HDL Cholesterol Total Amylase Lipase Urine Color Urine Appearance Urine pH Ur Specific [place] Urine Protein Urine Glucose (UA) Urine Ketones Urine Blood Urine Nitrite Urine Bilirubin Urine Urobilinogen Ur Leukocyte Esterase Urine WBC (Auto) Urine RBC (Auto) Urine Casts (Auto) U Epithel Cells (Auto) Urine Bacteria (Auto) 06/28/19 06/28/19 06/28/19 14:30 14:30 14:30 WBC RBC Hgb Hct MCV MCH MCHC RDW Plt Count MPV Absolute Neuts (auto) Neutrophils % Lymphocytes % Monocytes % Eosinophils % Basophils % Nucleated RBC % Sodium Potassium Chloride Carbon Dioxide Anion Gap BUN Creatinine Est GFR (CKD-EPI)AfAm Est GFR (CKD-EPI)NonAf POC Glucometer Random Glucose Hemoglobin A1c % Lactic Acid Calcium Phosphorus Magnesium Total Bilirubin AST ALT Alkaline Phosphatase LD Total 339 H Total Protein Albumin Triglycerides Cholesterol Total LDL Cholesterol HDL Cholesterol Total Amylase Lipase 177 Urine Color Yellow Urine Appearance Clear Urine pH 5.5 Ur Specific [place] 1.023 Urine Protein 3+ H Urine Glucose (UA) Trace Urine Ketones Negative Urine Blood Negative Urine Nitrite Negative Urine Bilirubin Negative Urine Urobilinogen 0.2 Ur Leukocyte Esterase Negative Urine WBC (Auto) 2 Urine RBC (Auto) 1 Urine Casts (Auto) 5 U Epithel Cells (Auto) 1.3 Urine Bacteria (Auto) 4.1 06/28/19 06/28/19 06/28/19 14:30 18:32 21:55 WBC RBC Hgb Hct MCV MCH MCHC RDW Plt Count MPV Absolute Neuts (auto) Neutrophils % Lymphocytes % Monocytes % Eosinophils % Basophils % Nucleated RBC % Sodium Potassium Chloride Carbon Dioxide Anion Gap BUN Creatinine Est GFR (CKD-EPI)AfAm Est GFR (CKD-EPI)NonAf POC Glucometer 58 133 Random Glucose Hemoglobin A1c % Lactic Acid Calcium Phosphorus Magnesium Total Bilirubin AST ALT Alkaline Phosphatase LD Total Total Protein Albumin Triglycerides 2058 H Cholesterol 275 H Total LDL Cholesterol 62 HDL Cholesterol 22 L Total Amylase Lipase Urine Color Urine Appearance Urine pH Ur Specific [place] Urine Protein Urine Glucose (UA) Urine Ketones Urine Blood Urine Nitrite Urine Bilirubin Urine Urobilinogen Ur Leukocyte Esterase Urine WBC (Auto) Urine RBC (Auto) Urine Casts (Auto) U Epithel Cells (Auto) Urine Bacteria (Auto) 06/28/19 06/28/19 06/29/19 22:04 22:04 00:00 WBC RBC Hgb Hct MCV MCH MCHC RDW Plt Count MPV Absolute Neuts (auto) Neutrophils % Lymphocytes % Monocytes % Eosinophils % Basophils % Nucleated RBC % Sodium 137 Potassium 4.1 Chloride 107 Carbon Dioxide 22 Anion Gap 7 L BUN 15.5 Creatinine 1.0 Est GFR (CKD-EPI)AfAm 99.85 Est GFR (CKD-EPI)NonAf 86.15 POC Glucometer 158 Random Glucose 143 H Hemoglobin A1c % Lactic Acid Calcium 7.9 L Phosphorus 2.5 Magnesium 2.5 H Total Bilirubin AST ALT Alkaline Phosphatase LD Total Total Protein Albumin Triglycerides 1693 H Cholesterol 266 H Total LDL Cholesterol 65 HDL Cholesterol 20 L Total Amylase Lipase Urine Color Urine Appearance Urine pH Ur Specific [place] Urine Protein Urine Glucose (UA) Urine Ketones Urine Blood Urine Nitrite Urine Bilirubin Urine Urobilinogen Ur Leukocyte Esterase Urine WBC (Auto) Urine RBC (Auto) Urine Casts (Auto) U Epithel Cells (Auto) Urine Bacteria (Auto) 06/29/19 06/29/19 06/29/19 00:59 01:41 02:18 WBC RBC Hgb Hct MCV MCH MCHC RDW Plt Count MPV Absolute Neuts (auto) Neutrophils % Lymphocytes % Monocytes % Eosinophils % Basophils % Nucleated RBC % Sodium Potassium Chloride Carbon Dioxide Anion Gap BUN Creatinine Est GFR (CKD-EPI)AfAm Est GFR (CKD-EPI)NonAf POC Glucometer 117 108 96 Random Glucose Hemoglobin A1c % Lactic Acid Calcium Phosphorus Magnesium Total Bilirubin AST ALT Alkaline Phosphatase LD Total Total Protein Albumin Triglycerides Cholesterol Total LDL Cholesterol HDL Cholesterol Total Amylase Lipase Urine Color Urine Appearance Urine pH Ur Specific [place] Urine Protein Urine Glucose (UA) Urine Ketones Urine Blood Urine Nitrite Urine Bilirubin Urine Urobilinogen Ur Leukocyte Esterase Urine WBC (Auto) Urine RBC (Auto) Urine Casts (Auto) U Epithel Cells (Auto) Urine Bacteria (Auto) 06/29/19 06/29/19 06/29/19 03:06 04:04 05:08 WBC RBC Hgb Hct MCV MCH MCHC RDW Plt Count MPV Absolute Neuts (auto) Neutrophils % Lymphocytes % Monocytes % Eosinophils % Basophils % Nucleated RBC % Sodium Potassium Chloride Carbon Dioxide Anion Gap BUN Creatinine Est GFR (CKD-EPI)AfAm Est GFR (CKD-EPI)NonAf POC Glucometer 96 96 103 Random Glucose Hemoglobin A1c % Lactic Acid Calcium Phosphorus Magnesium Total Bilirubin AST ALT Alkaline Phosphatase LD Total Total Protein Albumin Triglycerides Cholesterol Total LDL Cholesterol HDL Cholesterol Total Amylase Lipase Urine Color Urine Appearance Urine pH Ur Specific [place] Urine Protein Urine Glucose (UA) Urine Ketones Urine Blood Urine Nitrite Urine Bilirubin Urine Urobilinogen Ur Leukocyte Esterase Urine WBC (Auto) Urine RBC (Auto) Urine Casts (Auto) U Epithel Cells (Auto) Urine Bacteria (Auto) 06/29/19 06/29/19 06/29/19 05:38 05:38 05:38 WBC 8.1 RBC 4.66 Hgb 14.6 Hct 43.2 MCV 92.7 MCH 31.4 MCHC 33.9 RDW 14.4 Plt Count 257 MPV 9.2 Absolute Neuts (auto) 3.9 Neutrophils % 48.0 Lymphocytes % 36.5 D Monocytes % 11.3 H Eosinophils % 3.6 D Basophils % 0.6 Nucleated RBC % 0 Sodium 136 Potassium 3.8 Chloride 106 Carbon Dioxide 22 Anion Gap 8 BUN 14.3 Creatinine 1.0 Est GFR (CKD-EPI)AfAm 99.85 Est GFR (CKD-EPI)NonAf 86.15 POC Glucometer Random Glucose 112 H Hemoglobin A1c % 7.5 H Lactic Acid Calcium 7.9 L Phosphorus 2.6 Magnesium 2.5 H Total Bilirubin 0.5 AST 57 H ALT 69 H Alkaline Phosphatase 65 LD Total Total Protein 7.0 Albumin 3.1 L Triglycerides Cholesterol Total LDL Cholesterol HDL Cholesterol Total Amylase 50 Lipase 152 Urine Color Urine Appearance Urine pH Ur Specific [place] Urine Protein Urine Glucose (UA) Urine Ketones Urine Blood Urine Nitrite Urine Bilirubin Urine Urobilinogen Ur Leukocyte Esterase Urine WBC (Auto) Urine RBC (Auto) Urine Casts (Auto) U Epithel Cells (Auto) Urine Bacteria (Auto) 06/29/19 06/29/19 06/29/19 05:38 06:06 07:01 WBC RBC Hgb Hct MCV MCH MCHC RDW Plt Count MPV Absolute Neuts (auto) Neutrophils % Lymphocytes % Monocytes % Eosinophils % Basophils % Nucleated RBC % Sodium Potassium Chloride Carbon Dioxide Anion Gap BUN Creatinine Est GFR (CKD-EPI)AfAm Est GFR (CKD-EPI)NonAf POC Glucometer 115 126 Random Glucose Hemoglobin A1c % Lactic Acid Calcium Phosphorus Magnesium Total Bilirubin AST ALT Alkaline Phosphatase LD Total Total Protein Albumin Triglycerides 1433 H Cholesterol 271 H Total LDL Cholesterol 59 HDL Cholesterol 22 L Total Amylase Lipase Urine Color Urine Appearance Urine pH Ur Specific [place] Urine Protein Urine Glucose (UA) Urine Ketones Urine Blood Urine Nitrite Urine Bilirubin Urine Urobilinogen Ur Leukocyte Esterase Urine WBC (Auto) Urine RBC (Auto) Urine Casts (Auto) U Epithel Cells (Auto) Urine Bacteria (Auto) 06/29/19 06/29/19 06/29/19 08:24 09:45 10:46 WBC RBC Hgb Hct MCV MCH MCHC RDW Plt Count MPV Absolute Neuts (auto) Neutrophils % Lymphocytes % Monocytes % Eosinophils % Basophils % Nucleated RBC % Sodium Potassium Chloride Carbon Dioxide Anion Gap BUN Creatinine Est GFR (CKD-EPI)AfAm Est GFR (CKD-EPI)NonAf POC Glucometer 139 159 143 Random Glucose Hemoglobin A1c % Lactic Acid Calcium Phosphorus Magnesium Total Bilirubin AST ALT Alkaline Phosphatase LD Total Total Protein Albumin Triglycerides Cholesterol Total LDL Cholesterol HDL Cholesterol Total Amylase Lipase Urine Color Urine Appearance Urine pH Ur Specific [place] Urine Protein Urine Glucose (UA) Urine Ketones Urine Blood Urine Nitrite Urine Bilirubin Urine Urobilinogen Ur Leukocyte Esterase Urine WBC (Auto) Urine RBC (Auto) Urine Casts (Auto) U Epithel Cells (Auto) Urine Bacteria (Auto) 06/29/19 12:22 WBC RBC Hgb Hct MCV MCH MCHC RDW Plt Count MPV Absolute Neuts (auto) Neutrophils % Lymphocytes % Monocytes % Eosinophils % Basophils % Nucleated RBC % Sodium Potassium Chloride Carbon Dioxide Anion Gap BUN Creatinine Est GFR (CKD-EPI)AfAm Est GFR (CKD-EPI)NonAf POC Glucometer 143 Random Glucose Hemoglobin A1c % Lactic Acid Calcium Phosphorus Magnesium Total Bilirubin AST ALT Alkaline Phosphatase LD Total Total Protein Albumin Triglycerides Cholesterol Total LDL Cholesterol HDL Cholesterol Total Amylase Lipase Urine Color Urine Appearance Urine pH Ur Specific [place] Urine Protein Urine Glucose (UA) Urine Ketones Urine Blood Urine Nitrite Urine Bilirubin Urine Urobilinogen Ur Leukocyte Esterase Urine WBC (Auto) Urine RBC (Auto) Urine Casts (Auto) U Epithel Cells (Auto) Urine Bacteria (Auto) Active Medications Generic Name Dose Route Start Last Admin Trade Name Freq PRN Reason Stop Dose Admin Chlorhexidine Gluconate 1 applic 06/29/19 22:00 Hibiclens For Decolonization - TP HS [facility] Enoxaparin Sodium 40 mg 06/29/19 10:00 06/29/19 09:56 Lovenox - SQ 40 mg DAILY JASON Administration Fenofibric Acid 135 mg 06/29/19 11:45 Trilipix - PO DAILY [facility] Insulin Human Regular 100 100 mls @ 8.98 mls/hr 06/28/19 16:15 06/29/19 04:18 units/ Sodium Chloride IVPB 0.04 units/kg/hr TITR JASON 3.9 mls/hr Titration Protocol 0.1 UNITS/KG/HR Lactated Ringer's 1,000 ml in 1,000 mls @ 200 mls/hr 06/29/19 11:45 06/29/19 11:57 Lactated Ringers Solution IV 200 mls/hr ASDIR JASON Administration Morphine Sulfate 1 mg 06/29/19 03:30 06/29/19 04:09 Morphine Sulfate IVPUSH 1 mg Q6H PRN Administration PAIN LEVEL 6-10 Mupirocin 1 applic 06/29/19 10:00 06/29/19 09:56 Bactroban Ointment (For Decolonization) - NS 07/04/19 09:59 1 applic BID JASON Administration ASSESSMENT/PLAN: 54 y.o. M PMH HLD (hypertriglyceridemia), DM, HTN, multiple episodes of pancreatitis, s/p appy and taryn admitted for hypertriglyceridemia induced acute pancreatitis #[employer] -mentating well no acute issues -continue to monitor #CV -Hx HTN, holding home anti HTN meds -continue to monitor vitals closely -no overnight tele events #GI -Acute pacreatitis 2/2 hypertriglyceridemia -TG's trending down latest 1400s-- trend BID -Continue insulin drip until TG's <500 -BGMs -continue IVF, switched to LR -fenofibrate therapy -pain control with morphine 1mg Q6H -Dr. Lincoln following-- recommends repeat abdomen/pelvic CT scan in 3 months to r/o pancreatic CA #Endo -Hx DM -on insulin drip -BGMs -HBA1c 7.5% #ID -observe off abx -afebrile -leukocytosis downtrended #FENLTD -LR @200cc/hr -trend lytes replete prn -NPO, advacne as tolerated -peripheral lines #Dispo continue ICU level of care Visit type - Emergency Visit Emergency Visit: No - New Patient This patient is new to me today: No - Critical Care Critical Care patient: Yes Total Critical Care Time (in minutes): 45 Critical Care Statement: The care of this patient involved high complexity decision making to prevent further life threatening deterioration of the patient's condition and/or to evaluate & treat vital organ system(s) failure or risk of failure. ATTENDING PHYSICIAN STATEMENT I saw and evaluated the patient. I reviewed the resident's note and discussed the case with the resident. I agree with the resident's findings and plan as documented. SUBJECTIVE: OBJECTIVE: ASSESSMENT AND PLAN:
[2019-06-29 14:16] LABS: LIPASE 157 U/L (73-393)
[2019-06-29] MEDS: FENOFIBRIC ACID 135 MG CAP PO SCH (14:29)
[2019-06-29] MEDS: INSULIN REGULAR 100 UNITS in SODIUM CHLORIDE 99 ML IVPB SCH (17:05)
[2019-06-29] MEDS: RAMIPRIL 2.5 MG CAPSULE (FP) PO SCH (21:04)
[2019-06-29] MEDS: CHLORHEXIDINE GLUCONATE 4% CLEANSER FOR DECOLONIZATION TP SCH (21:05)
[2019-06-29] MEDS ORDERED: OXYMETAZOLINE 0.05% NASAL SOLUTION 15 ML BOTTLE NS PRN (22:18)
[2019-06-30 00:32] LABS: BLOOD UREA NITROGEN 9.7 mg/dL (7-18); CALCIUM 8.1 mg/dL (8.5-10.1); CREATININE 0.9 mg/dL (0.55-1.3); POTASSIUM 4.1 mmol/L (3.5-5.1)
--- NOTE | 2019-06-30 00:52 | CONSULT ---
Consult Consult Specialty:: endocrine Referred by:: Khari Quinn RES. Reason for Consultation:: DMT2/hypertriglyceridemia - History of Present Illness Chief Complaint: abdominal pain History of Present Illness: 54 y/o male hx of DMT2,HLD (hypertriglyceridemia), HTN,multiple episodes of pancreatitis, s/p appy and taryn, presenting today with epigastric abdominal pain that Pt describes the pain as sharp, intermittent then constant epigastric pain radiating to the LLQ, suprapubic area and to the back. Pain is associated with nausea w/o vomiting and 1 episode of watery brown stool he has been following diabetic diet however work restriction has made it difficult to control blood sugars.denies weight loss,fever chills or cough.he has hypertriglyceridemia triglyceride level 2057 on admission requiring iv insulin drip and iv fluids for rehydration. - Past Medical History Cardio/Vascular: Yes: HTN, Hyperlipdemia Gastrointestinal: Yes: Gastritis, Other (H/O PANCREATITIS) Endocrine: Yes: Diabetes Mellitus - Past Surgical History Past Surgical History: Yes: Appendectomy, Cholecystectomy - Alcohol/Substance Use Hx Alcohol Use: No - Smoking History Smoking history: Current every day smoker Have you smoked in the past 12 months: Yes Aproximately how many cigarettes per day: 10 If you are a former smoker, when did you quit?: 3 days ago, - Social History ADL: Independent History of Recent Travel: No Home Medications - Allergies Allergies/Adverse Reactions: Allergies Allergy/AdvReac Type Severity Reaction Status Date / Time No Known Allergies Allergy Verified 06/28/19 11:54 - Home Medications Home Medications: Ambulatory Orders metFORMIN HCL [Glucophage] 1,000 mg PO BID 10/29/12 Atorvastatin Ca [Lipitor] 80 mg PO HS 10/19/15 Aspirin [ASA -] 81 mg PO DAILY 10/20/17 Fenofibrate Nanocrystallized [Fenofibrate] 160 mg PO HS 02/12/19 Glipizide 5 mg PO BID 02/12/19 Insulin Glargine,Hum.rec.anlog [Basaglar Kwikpen U-100] 60 unit SQ BID 02/12/19 Insulin Regular, Human [Humulin R U-500 Kwikpen] 30 unit SQ ASDIR 02/12/19 Ramipril 2.5 mg PO DAILY 02/12/19 Review of Systems - Review of Systems Constitutional: reports: Lethargy, Weakness Eyes: reports: No Symptoms HENT: reports: No Symptoms Physical Exam Vital Signs: Vital Signs Temperature 97.9 F 06/29/19 22:00 Pulse Rate 65 06/30/19 00:00 Respiratory Rate 15 06/30/19 00:00 Blood Pressure 135/77 06/30/19 00:00 O2 Sat by Pulse Oximetry (%) 95 06/29/19 21:00 Constitutional: Yes: Calm Eyes: Yes: EOM Intact HENT: Yes: Normocephalic Neck: Yes: Trachea Midline Cardiovascular: Yes: Regular Rate and Rhythm Respiratory: Yes: CTA Bilaterally Gastrointestinal: Yes: Normal Bowel Sounds, Tenderness, Epigastrium, Tenderness , Rebound ...Rectal Exam: Yes: Deferred Renal/: Yes: WNL Breast(s): Yes: WNL Musculoskeletal: Yes: Back Pain, Muscle Pain, Muscle Weakness Extremities: Yes: WNL Edema: No Neurological: Yes: Alert, Oriented Psychiatric: Yes: Alert, Oriented Labs: CBC, BMP 06/29/19 05:38 06/29/19 23:30 Problem List - Problems (1) Hypertriglyceridemia, familial Problems reviewed: Yes (2) Pancreatitis Problems reviewed: Yes Code(s): K85.90 - ACUTE PANCREATITIS WITHOUT NECROSIS OR INFECTION, UNSP Qualifiers: Chronicity: acute Pancreatitis type: unspecified pancreatitis type Acute pancreatitis complication: unspecified Qualified Code(s): K85.90 - Acute pancreatitis without necrosis or infection, unspecified (3) Acute lumbar myofascial strain Code(s): S39.012A - STRAIN OF MUSCLE, FASCIA AND TENDON OF LOWER BACK, INIT Qualifiers: Encounter type: initial encounter Qualified Code(s): S39.012A - Strain of muscle, fascia and tendon of lower back, initial encounter (4) Asthmatic bronchitis Code(s): J45.909 - UNSPECIFIED ASTHMA, UNCOMPLICATED Qualifiers: Asthma severity: mild Asthma persistence: persistent Asthma complication type: with acute exacerbation Qualified Code(s): J45.31 - Mild persistent asthma with (acute) exacerbation (5) Bronchitis Code(s): J40 - BRONCHITIS, NOT SPECIFIED ACUTE OR CHRONIC (6) Diabetes Code(s): E11.9 - TYPE 2 DIABETES MELLITUS WITHOUT COMPLICATIONS (7) Diarrhea Code(s): R19.7 - DIARRHEA, UNSPECIFIED (8) Epigastric pain Code(s): R10.13 - EPIGASTRIC PAIN Assessment/Plan Current Active Problems hypertrigyceridemia dmtype 2,insulin resistant Lipedema (Acute) Pancreatitis (Acute) Abnormal Lab Results 06/29/19 06/29/19 06/29/19 05:38 05:38 05:38 Monocytes % 11.3 H Anion Gap Random Glucose 112 H Hemoglobin A1c % 7.5 H Calcium 7.9 L Magnesium 2.5 H AST 57 H ALT 69 H Albumin 3.1 L Triglycerides Cholesterol HDL Cholesterol 06/29/19 06/29/19 06/29/19 05:38 14:02 23:30 Monocytes % Anion Gap 7 L Random Glucose 143 H Hemoglobin A1c % Calcium 8.1 L Magnesium AST ALT Albumin Triglycerides 1433 H 1162 H 1033 H Cholesterol 271 H 252 H HDL Cholesterol 22 L 18 L Laboratory Results - last 24 hr 06/29/19 06/29/19 06/29/19 00:59 01:41 02:18 WBC RBC Hgb Hct MCV MCH MCHC RDW Plt Count MPV Absolute Neuts (auto) Neutrophils % Lymphocytes % Monocytes % Eosinophils % Basophils % Nucleated RBC % Sodium Potassium Chloride Carbon Dioxide Anion Gap BUN Creatinine Est GFR (CKD-EPI)AfAm Est GFR (CKD-EPI)NonAf POC Glucometer 117 108 96 Random Glucose Hemoglobin A1c % Calcium Phosphorus Magnesium Total Bilirubin AST ALT Alkaline Phosphatase Total Protein Albumin Triglycerides Cholesterol Total LDL Cholesterol HDL Cholesterol Total Amylase Lipase 06/29/19 06/29/19 06/29/19 03:06 04:04 05:08 WBC RBC Hgb Hct MCV MCH MCHC RDW Plt Count MPV Absolute Neuts (auto) Neutrophils % Lymphocytes % Monocytes % Eosinophils % Basophils % Nucleated RBC % Sodium Potassium Chloride Carbon Dioxide Anion Gap BUN Creatinine Est GFR (CKD-EPI)AfAm Est GFR (CKD-EPI)NonAf POC Glucometer 96 96 103 Random Glucose Hemoglobin A1c % Calcium Phosphorus Magnesium Total Bilirubin AST ALT Alkaline Phosphatase Total Protein Albumin Triglycerides Cholesterol Total LDL Cholesterol HDL Cholesterol Total Amylase Lipase 06/29/19 06/29/19 06/29/19 05:38 05:38 05:38 WBC 8.1 RBC 4.66 Hgb 14.6 Hct 43.2 MCV 92.7 MCH 31.4 MCHC 33.9 RDW 14.4 Plt Count 257 MPV 9.2 Absolute Neuts (auto) 3.9 Neutrophils % 48.0 Lymphocytes % 36.5 D Monocytes % 11.3 H Eosinophils % 3.6 D Basophils % 0.6 Nucleated RBC % 0 Sodium 136 Potassium 3.8 Chloride 106 Carbon Dioxide 22 Anion Gap 8 BUN 14.3 Creatinine 1.0 Est GFR (CKD-EPI)AfAm 99.85 Est GFR (CKD-EPI)NonAf 86.15 POC Glucometer Random Glucose 112 H Hemoglobin A1c % 7.5 H Calcium 7.9 L Phosphorus 2.6 Magnesium 2.5 H Total Bilirubin 0.5 AST 57 H ALT 69 H Alkaline Phosphatase 65 Total Protein 7.0 Albumin 3.1 L Triglycerides Cholesterol Total LDL Cholesterol HDL Cholesterol Total Amylase 50 Lipase 152 06/29/19 06/29/19 06/29/19 05:38 06:06 07:01 WBC RBC Hgb Hct MCV MCH MCHC RDW Plt Count MPV Absolute Neuts (auto) Neutrophils % Lymphocytes % Monocytes % Eosinophils % Basophils % Nucleated RBC % Sodium Potassium Chloride Carbon Dioxide Anion Gap BUN Creatinine Est GFR (CKD-EPI)AfAm Est GFR (CKD-EPI)NonAf POC Glucometer 115 126 Random Glucose Hemoglobin A1c % Calcium Phosphorus Magnesium Total Bilirubin AST ALT Alkaline Phosphatase Total Protein Albumin Triglycerides 1433 H Cholesterol 271 H Total LDL Cholesterol 59 HDL Cholesterol 22 L Total Amylase Lipase 157 06/29/19 06/29/19 06/29/19 08:24 09:45 10:46 WBC RBC Hgb Hct MCV MCH MCHC RDW Plt Count MPV Absolute Neuts (auto) Neutrophils % Lymphocytes % Monocytes % Eosinophils % Basophils % Nucleated RBC % Sodium Potassium Chloride Carbon Dioxide Anion Gap BUN Creatinine Est GFR (CKD-EPI)AfAm Est GFR (CKD-EPI)NonAf POC Glucometer 139 159 143 Random Glucose Hemoglobin A1c % Calcium Phosphorus Magnesium Total Bilirubin AST ALT Alkaline Phosphatase Total Protein Albumin Triglycerides Cholesterol Total LDL Cholesterol HDL Cholesterol Total Amylase Lipase 06/29/19 06/29/19 06/29/19 12:22 13:15 14:02 WBC RBC Hgb Hct MCV MCH MCHC RDW Plt Count MPV Absolute Neuts (auto) Neutrophils % Lymphocytes % Monocytes % Eosinophils % Basophils % Nucleated RBC % Sodium Potassium Chloride Carbon Dioxide Anion Gap BUN Creatinine Est GFR (CKD-EPI)AfAm Est GFR (CKD-EPI)NonAf POC Glucometer 143 127 Random Glucose Hemoglobin A1c % Calcium Phosphorus Magnesium Total Bilirubin AST ALT Alkaline Phosphatase Total Protein Albumin Triglycerides 1162 H Cholesterol Total LDL Cholesterol HDL Cholesterol Total Amylase Lipase 06/29/19 06/29/19 06/29/19 14:46 16:28 17:42 WBC RBC Hgb Hct MCV MCH MCHC RDW Plt Count MPV Absolute Neuts (auto) Neutrophils % Lymphocytes % Monocytes % Eosinophils % Basophils % Nucleated RBC % Sodium Potassium Chloride Carbon Dioxide Anion Gap BUN Creatinine Est GFR (CKD-EPI)AfAm Est GFR (CKD-EPI)NonAf POC Glucometer 112 106 107 Random Glucose Hemoglobin A1c % Calcium Phosphorus Magnesium Total Bilirubin AST ALT Alkaline Phosphatase Total Protein Albumin Triglycerides Cholesterol Total LDL Cholesterol HDL Cholesterol Total Amylase Lipase 06/29/19 06/29/19 06/29/19 18:25 19:36 20:47 WBC RBC Hgb Hct MCV MCH MCHC RDW Plt Count MPV Absolute Neuts (auto) Neutrophils % Lymphocytes % Monocytes % Eosinophils % Basophils % Nucleated RBC % Sodium Potassium Chloride Carbon Dioxide Anion Gap BUN Creatinine Est GFR (CKD-EPI)AfAm Est GFR (CKD-EPI)NonAf POC Glucometer 204 225 178 Random Glucose Hemoglobin A1c % Calcium Phosphorus Magnesium Total Bilirubin AST ALT Alkaline Phosphatase Total Protein Albumin Triglycerides Cholesterol Total LDL Cholesterol HDL Cholesterol Total Amylase Lipase 06/29/19 06/29/19 06/29/19 22:12 23:03 23:30 WBC RBC Hgb Hct MCV MCH MCHC RDW Plt Count MPV Absolute Neuts (auto) Neutrophils % Lymphocytes % Monocytes % Eosinophils % Basophils % Nucleated RBC % Sodium 137 Potassium 4.1 Chloride 106 Carbon Dioxide 23 Anion Gap 7 L BUN 9.7 Creatinine 0.9 Est GFR (CKD-EPI)AfAm 113.41 Est GFR (CKD-EPI)NonAf 97.85 POC Glucometer 160 131 Random Glucose 143 H Hemoglobin A1c % Calcium 8.1 L Phosphorus Magnesium Total Bilirubin AST ALT Alkaline Phosphatase Total Protein Albumin Triglycerides 1033 H Cholesterol 252 H Total LDL Cholesterol 75 HDL Cholesterol 18 L Total Amylase Lipase 06/29/19 23:58 WBC RBC Hgb Hct MCV MCH MCHC RDW Plt Count MPV Absolute Neuts (auto) Neutrophils % Lymphocytes % Monocytes % Eosinophils % Basophils % Nucleated RBC % Sodium Potassium Chloride Carbon Dioxide Anion Gap BUN Creatinine Est GFR (CKD-EPI)AfAm Est GFR (CKD-EPI)NonAf POC Glucometer 149 Random Glucose Hemoglobin A1c % Calcium Phosphorus Magnesium Total Bilirubin AST ALT Alkaline Phosphatase Total Protein Albumin Triglycerides Cholesterol Total LDL Cholesterol HDL Cholesterol Total Amylase Lipase plan: continue bgm q 1hr concur iv drip insulin for resistance diet nutrition consult fibrate and vascepa as outpatient
[2019-06-30 06:31] LABS: HEMATOCRIT 39.8 % (35.4-49); HEMOGLOBIN 13.7 GM/dL (11.7-16.9); MCH 31.8 pg (25.7-33.7); MCHC 34.5 g/dl (32.0-35.9); MEAN CELL VOLUME 92.2 fl (80-96); MEAN PLT VOLUME 8.7 fl (7.5-11.1); PLATELET COUNT 246 K/MM3 (134-434); RBC 4.32 M/mm3 (4.00-5.60); RDW 14.4 % (11.9-15.9); WHITE BLOOD COUNT 5.3 K/mm3 (4.0-10.0)
[2019-06-30] MEDS: MORPHINE SULFATE 2 MG/ML VIAL IVPUSH PRN ×2 (06:51→22:43)
[2019-06-30 07:08] LABS: ALBUMIN 2.8 g/dl (3.4-5.0); BILIRUBIN,TOTAL 1.1 mg/dL (0.2-1); BLOOD UREA NITROGEN 10.2 mg/dL (7-18); CALCIUM 8.4 mg/dL (8.5-10.1); CREATININE 0.9 mg/dL (0.55-1.3); PHOSPHOROUS 2.8 mg/dL (2.5-4.9); POTASSIUM 4.3 mmol/L (3.5-5.1); TOT PROT 6.4 g/dl (6.4-8.2)
[2019-06-30 07:22] LABS: CHOLESTEROL 253 mg/dL (50-200); HDL CHOLESTEROL 18 mg/dL (40-60); LDL CHOLESTEROL (ONLY SJRH) 77 mg/dL (5-100); TRIGLYCERIDES 1067 mg/dL (0-150)
[2019-06-30] MEDS: LACTATED RINGERS SOLUTION 1,000 ML/1,000 ML INFUS.BAG IV SCH ×4 (08:39→20:51)
--- NOTE | 2019-06-30 08:59 | PN.GI ---
GI Progress Note Subjective: Patient complains of LUQ pain, denies nausea, vomiting. Triglycerides are showing downtrend and amylase is in normal limits. - Objective Vital Signs: Vital Signs Temperature 98 F 06/30/19 06:00 Pulse Rate 68 06/30/19 08:00 Respiratory Rate 15 06/30/19 08:00 Blood Pressure 120/87 06/30/19 08:00 O2 Sat by Pulse Oximetry (%) 95 06/29/19 21:00 Constitutional: No Distress, Calm Eyes: Yes: Conjunctiva Clear HENT: Yes: Atraumatic Cardiovascular: Yes: Regular Rate and Rhythm Respiratory: Yes: Regular, CTA Bilaterally Gastrointestinal Inspection: Yes: WNL. No: Ascites, Distention, Hernia, Scars, Other ...Auscultate: Yes: Normoactive Bowel Sounds. No: Hyperactive Bowel Sounds, Hypoactive Bowel Sounds, No Bowel Sounds, Other ...Palpate: Yes: Soft, Tenderness (luq), Tenderness, Epigastium. No: Firm/Rigid , Guarding, Hepatomegaly, Mass, Pulsatile Mass, Splenomegaly, Tenderness, Rebound, Other ...Percussion: Yes: Tympanitic. No: Dullness, Fluid Wave, Other Neurological: Yes: Alert, Oriented Psychiatric: Yes: Alert, Oriented Labs: CBC, BMP 06/30/19 05:43 06/30/19 05:43 Active Medications Generic Name Dose Route Start Last Admin Trade Name Freq PRN Reason Stop Dose Admin Chlorhexidine Gluconate 1 applic 06/29/19 22:00 06/29/19 21:05 Hibiclens For Decolonization - TP 1 applic HS JASON Administration Enoxaparin Sodium 40 mg 06/29/19 10:00 06/29/19 09:56 Lovenox - SQ 40 mg DAILY JASON Administration Fenofibric Acid 135 mg 06/29/19 13:00 06/29/19 14:29 Trilipix - PO Not Given DAILY JASON Insulin Human Regular 100 100 mls @ 8.98 mls/hr 06/28/19 16:15 06/30/19 02:08 units/ Sodium Chloride IVPB 0.02 units/kg/hr TITR JASON 1.9 mls/hr Titration Protocol 0.1 UNITS/KG/HR Lactated Ringer's 1,000 ml in 1,000 mls @ 200 mls/hr 06/29/19 11:45 02/05/20 08:39 Lactated Ringers Solution IV 200 mls/hr ASDIR JASON Administration Morphine Sulfate 1 mg 06/29/19 03:30 06/30/19 06:51 Morphine Sulfate IVPUSH 1 mg Q6H PRN Administration PAIN LEVEL 6-10 Mupirocin 1 applic 06/29/19 10:00 06/29/19 21:04 Bactroban Ointment (For Decolonization) - NS 07/04/19 09:59 1 applic BID JASON Administration Oxymetazoline HCl 2 spray 06/29/19 22:18 06/29/19 22:23 Afrin - NS 2 spray BID PRN Administration NASAL CONGESTION Ramipril 2.5 mg 06/29/19 20:00 06/29/19 21:04 Altace - PO 2.5 mg DAILY JASON Administration Problem List - Problems (1) Pancreatitis Assessment/Plan: Acute on Chronic Pancreatitis >continue IV hydration >advance diet as tolerated >pain control >amylase wnl >will need to repeat Abdomen/Pelvic CT scan in 3 months to R/O Pancreatic CA and will need outpatient EGD Code(s): K85.90 - ACUTE PANCREATITIS WITHOUT NECROSIS OR INFECTION, UNSP Qualifiers: Chronicity: acute Pancreatitis type: unspecified pancreatitis type Acute pancreatitis complication: unspecified Qualified Code(s): K85.90 - Acute pancreatitis without necrosis or infection, unspecified
[2019-06-30] MEDS: ENOXAPARIN NA (PORCINE) 40 MG/0.4 ML DISP.SYRIN SQ SCH (09:29)
[2019-06-30] MEDS: RAMIPRIL 2.5 MG CAPSULE (FP) PO SCH (09:29)
[2019-06-30] MEDS: FENOFIBRIC ACID 135 MG CAP PO SCH (09:29)
[2019-06-30] MEDS: MUPIROCIN 2% TOPICAL OINTMENT FOR DECOLONIZATION NS SCH ×2 (09:30→21:18)
--- NOTE | 2019-06-30 11:37 | PN ---
Progress Note, Physician Chief Complaint: AWAKE ALERT FEELING BETTER - Current Medication List Current Medications: Active Medications Chlorhexidine Gluconate (Hibiclens For Decolonization -) 1 applic TP HS [facility] Last Admin: 06/29/19 21:05 Dose: 1 applic Enoxaparin Sodium (Lovenox -) 40 mg SQ DAILY [facility] Last Admin: 06/30/19 09:29 Dose: 40 mg Fenofibric Acid (Trilipix -) 135 mg PO DAILY [facility] Last Admin: 06/30/19 09:29 Dose: 135 mg Insulin Human Regular 100 (units/ Sodium Chloride) 100 mls @ 8.98 mls/hr IVPB TITR [facility]; Protocol Last Titration: 06/30/19 10:21 Dose: 0.02 units/kg/hr, 2.4 mls/hr Lactated Ringer's (Lactated Ringers Solution) 1,000 ml in 1,000 mls @ 200 mls/ hr IV ASDIR [facility] Last Admin: 06/30/19 08:39 Dose: 200 mls/hr Morphine Sulfate (Morphine Sulfate) 1 mg IVPUSH Q6H PRN PRN Reason: PAIN LEVEL 6-10 Last Admin: 06/30/19 06:51 Dose: 1 mg Mupirocin (Bactroban Ointment (For Decolonization) -) 1 applic NS BID [facility] Stop: 07/04/19 09:59 Last Admin: 06/30/19 09:30 Dose: 1 applic Oxymetazoline HCl (Afrin -) 2 spray NS BID PRN PRN Reason: NASAL CONGESTION Last Admin: 06/29/19 22:23 Dose: 2 spray Ramipril (Altace -) 2.5 mg PO DAILY [facility] Last Admin: 06/30/19 09:29 Dose: 2.5 mg - Objective Vital Signs: Vital Signs Temperature 98.3 F 06/30/19 10:00 Pulse Rate 69 06/30/19 10:00 Respiratory Rate 15 06/30/19 10:00 Blood Pressure 132/77 06/30/19 10:00 O2 Sat by Pulse Oximetry (%) 95 06/29/19 21:00 Constitutional: Yes: Mild Distress Cardiovascular: Yes: Regular Rate and Rhythm Respiratory: Yes: WNL Gastrointestinal: Yes: Tenderness Musculoskeletal: Yes: WNL Extremities: Yes: WNL Edema: No Peripheral Pulses WNL: Yes Integumentary: Yes: WNL Wound/Incision: Yes: Clean/Dry Neurological: Yes: WNL ...Motor Strength: WNL Psychiatric: Yes: WNL Labs: CBC, BMP 06/30/19 05:43 06/30/19 05:43 Problem List - Problems (1) Lipedema Code(s): R60.9 - EDEMA, UNSPECIFIED (2) Pancreatitis Code(s): K85.90 - ACUTE PANCREATITIS WITHOUT NECROSIS OR INFECTION, UNSP Qualifiers: Chronicity: acute Pancreatitis type: unspecified pancreatitis type Acute pancreatitis complication: unspecified Qualified Code(s): K85.90 - Acute pancreatitis without necrosis or infection, unspecified (3) Diabetes Code(s): E11.9 - TYPE 2 DIABETES MELLITUS WITHOUT COMPLICATIONS (4) Pain in the abdomen Code(s): R10.9 - UNSPECIFIED ABDOMINAL PAIN (5) Hypertriglyceridemia, familial Code(s): E78.1 - PURE HYPERGLYCERIDEMIA Assessment/Plan SEEN IN ICU FEELS BETTER PAIN 7/10 IV FLUIDS IV INSULIN STOPPED PAIN CONTROL GI/SURGERY CONSULTS ENDOCRINE F/U DM AND TRIGLYCERIDEMIA DVT PROPHYLAXIS OOB TO CHAIR [facility] TRANSFER
--- NOTE | 2019-06-30 11:40 | EKG ---
Test Reason : Blood Pressure : / mmHG Vent. Rate : 093 BPM Atrial Rate : 093 BPM P-R Int : 136 ms QRS Dur : 082 ms QT Int : 344 ms P-R-T Axes : 040 048 035 degrees QTc Int : 427 ms NORMAL SINUS RHYTHM POSSIBLE ANTERIOR INFARCT , AGE UNDETERMINED ABNORMAL ECG WHEN COMPARED WITH ECG OF 13-FEB-2019 01:15, BORDERLINE CRITERIA FOR ANTERIOR INFARCT ARE NOW PRESENT Confirmed by Dain Santiago MD ([id number]) on 06/30/2019 11:39:34 AM Referred By: Confirmed By:Dain Santiago MD
--- NOTE | 2019-06-30 12:29 | PN ---
Teaching Attending Note Name of Resident: Mary Ann Villatoro ATTENDING PHYSICIAN STATEMENT I saw and evaluated the patient. I reviewed the resident's note and discussed the case with the resident. I agree with the resident's findings and plan as documented. SUBJECTIVE: Pt seen and examined in the ICU. Remains on insulin gtt. Still some abdominal pain but improving. Triglyceridemia trending down. OBJECTIVE: Vital Signs Period Temp Pulse Resp BP Sys/Perez Pulse Ox Last 24 Hr 97.9 F-98.3 F 60-79 15-21 111-137/66-87 95 Intake & Output 06/27/19 06/28/19 06/29/19 06/30/19 23:59 23:59 23:59 23:59 Intake Total 0 3748 2672 Output Total 2125 2400 Balance 0 1623 272 Weight 89.811 kg 88.36 kg Gen: NAD at rest Heart: RRR Lung: decreased breath sounds at the bases Abd: soft, mild TTP epigastric Ext: no edema CBC, BMP 06/30/19 05:43 06/30/19 05:43 Active Medications Chlorhexidine Gluconate (Hibiclens For Decolonization -) 1 applic TP HS [facility] Last Admin: 06/29/19 21:05 Dose: 1 applic Enoxaparin Sodium (Lovenox -) 40 mg SQ DAILY JASON Last Admin: 06/30/19 09:29 Dose: 40 mg Gemfibrozil (Lopid -) 600 mg PO BID@0700,1630 JASON Lactated Ringer's (Lactated Ringers Solution) 1,000 ml in 1,000 mls @ 200 mls/ hr IV ASDIR [facility] Last Admin: 06/30/19 08:39 Dose: 200 mls/hr Insulin Aspart (Novolog Vial Sliding Scale -) 1 vial SQ ACHS [facility]; Protocol Insulin Detemir (Levemir Vial) 50 units SQ HS JASON Morphine Sulfate (Morphine Sulfate) 1 mg IVPUSH Q6H PRN PRN Reason: PAIN LEVEL 6-10 Last Admin: 06/30/19 06:51 Dose: 1 mg Mupirocin (Bactroban Ointment (For Decolonization) -) 1 applic NS BID JASON Stop: 07/04/19 09:59 Last Admin: 06/30/19 09:30 Dose: 1 applic Oxymetazoline HCl (Afrin -) 2 spray NS BID PRN PRN Reason: NASAL CONGESTION Last Admin: 06/29/19 22:23 Dose: 2 spray Ramipril (Altace -) 2.5 mg PO DAILY JASON Last Admin: 06/30/19 09:29 Dose: 2.5 mg Rosuvastatin Calcium (Crestor -) 20 mg PO HS JASON ASSESSMENT AND PLAN: Acute Pancreatitis Hypertriglyceridemia HTN DM - lopid BID - fish oil, statin - continue IVF - montior BGM, triglyceride level - pain control - can monitor on floor once off insulin gtt
[2019-06-30 15:29] VITALS: BMI 29.5
[2019-06-30] MEDS: INSULIN SLIDING SCALE (NOVOLOG) 1 VIAL SQ SCH ×2 (15:49→21:21)
[2019-06-30] MEDS: GEMFIBROZIL 600 MG TABLET (FP) PO SCH (15:50)
--- NOTE | 2019-06-30 16:49 | PN ---
Physical Exam: SUBJECTIVE: Patient seen and examined. TG's improved, insulin drip d/c'd. OBJECTIVE: Vital Signs Period Temp Pulse Resp BP Sys/Perez Pulse Ox Last 24 Hr 97.9 F-98.3 F 60-88 14-21 112-137/66-87 95 GENERAL: AAOx3 NAD HEENT: NCAT. No JVD. No scleral icterus. LUNGS: Breath sounds equal, clear to auscultation bilaterally HEART: Regular rate and rhythm, S1, S2 without murmur, rub or gallop. ABDOMEN: Mildly tender to palpation LLQ. Soft, nondistended, normoactive bowel sounds EXTREMITIES: 2+ pulses, warm, well-perfused, no edema. NEUROLOGICAL: Cranial nerves II through XII grossly intact. PSYCH: Normal mood, normal affect. SKIN: Warm, dry Laboratory Results - last 24 hr Laboratory Last Values WBC 5.3 K/mm3 (4.0-10.0) 06/30/19 05:43 RBC 4.32 M/mm3 (4.00-5.60) 06/30/19 05:43 Hgb 13.7 GM/dL (11.7-16.9) 06/30/19 05:43 Hct 39.8 % (35.4-49) 06/30/19 05:43 MCV 92.2 fl (80-96) 06/30/19 05:43 MCH 31.8 pg (25.7-33.7) 06/30/19 05:43 MCHC 34.5 g/dl (32.0-35.9) 06/30/19 05:43 RDW 14.4 % (11.9-15.9) 06/30/19 05:43 Plt Count 246 K/MM3 (134-434) 06/30/19 05:43 MPV 8.7 fl (7.5-11.1) 06/30/19 05:43 Absolute Neuts (auto) 3.9 K/mm3 (1.5-8.0) 06/29/19 05:38 Neutrophils % 48.0 % (42.8-82.8) 06/29/19 05:38 Lymphocytes % 36.5 % (8-40) D 06/29/19 05:38 Monocytes % 11.3 % (3.8-10.2) H 06/29/19 05:38 Eosinophils % 3.6 % (0-4.5) D 06/29/19 05:38 Basophils % 0.6 % (0-2.0) 06/29/19 05:38 Nucleated RBC % 0 % (0-0) 06/29/19 05:38 Sodium 137 mmol/L (136-145) 06/30/19 05:43 Potassium 4.3 mmol/L (3.5-5.1) 06/30/19 05:43 Chloride 107 mmol/L (98-107) 06/30/19 05:43 Carbon Dioxide 22 mmol/L (21-32) 06/30/19 05:43 Anion Gap 7 MMOL/L (8-16) L 06/30/19 05:43 BUN 10.2 mg/dL (7-18) 06/30/19 05:43 Creatinine 0.9 mg/dL (0.55-1.3) 06/30/19 05:43 Est GFR (CKD-EPI)AfAm 113.41 06/30/19 05:43 Est GFR (CKD-EPI)NonAf 97.85 06/30/19 05:43 POC Glucometer 209 UNITS (80-120) 06/30/19 15:43 Random Glucose 178 mg/dL (74-106) H 06/30/19 05:43 Hemoglobin A1c % 7.5 % (4.2-6.3) H 06/29/19 05:38 Lactic Acid 0.2 mmol/L (0.4-2.0) L 06/28/19 14:30 Calcium 8.4 mg/dL (8.5-10.1) L 06/30/19 05:43 Phosphorus 2.8 mg/dL (2.5-4.9) 06/30/19 05:43 Magnesium 2.0 mg/dL (1.8-2.4) 06/30/19 05:43 Total Bilirubin 1.1 mg/dL (0.2-1) H 06/30/19 05:43 AST 55 U/L (15-37) H 06/30/19 05:43 ALT 83 U/L (13-61) H 06/30/19 05:43 Alkaline Phosphatase 59 U/L (45-117) 06/30/19 05:43 LD Total 339 U/L (87-246) H 06/28/19 14:30 Total Protein 6.4 g/dl (6.4-8.2) 06/30/19 05:43 Albumin 2.8 g/dl (3.4-5.0) L 06/30/19 05:43 Triglycerides 1067 mg/dL (0-150) H 06/30/19 05:43 Cholesterol 253 mg/dL (50-200) H 06/30/19 05:43 Total LDL Cholesterol 77 mg/dL (5-100) 06/30/19 05:43 HDL Cholesterol 18 mg/dL (40-60) L 06/30/19 05:43 Total Amylase 42 U/L (25-115) 06/30/19 05:43 Lipase 157 U/L (73-393) 06/29/19 05:38 Urine Color Yellow 06/28/19 14:30 Urine Appearance Clear 06/28/19 14:30 Urine pH 5.5 (5.0-8.0) 06/28/19 14:30 Ur Specific [place] 1.023 (1.010-1.035) 06/28/19 14:30 Urine Protein 3+ (NEGATIVE) H 06/28/19 14:30 Urine Glucose (UA) Trace (NEGATIVE) 06/28/19 14:30 Urine Ketones Negative (NEGATIVE) 06/28/19 14:30 Urine Blood Negative (NEGATIVE) 06/28/19 14:30 Urine Nitrite Negative (NEGATIVE) 06/28/19 14:30 Urine Bilirubin Negative (NEGATIVE) 06/28/19 14:30 Urine Urobilinogen 0.2 mg/dL (0.2-1.0) 06/28/19 14:30 Ur Leukocyte Esterase Negative (NEGATIVE) 06/28/19 14:30 Urine WBC (Auto) 2 /hpf (0-5) 06/28/19 14:30 Urine RBC (Auto) 1 /hpf (0-4) 06/28/19 14:30 Urine Casts (Auto) 5 /lpf (0-8) 06/28/19 14:30 U Epithel Cells (Auto) 1.3 /HPF (0-5/HPF) 06/28/19 14:30 Urine Bacteria (Auto) 4.1 /hpf (NEGATIVE) 06/28/19 14:30 Active Medications Current Medications Chlorhexidine Gluconate (Hibiclens For Decolonization -) 1 applic TP HS [facility] Last Admin: 06/29/19 21:05 Dose: 1 applic Enoxaparin Sodium (Lovenox -) 40 mg SQ DAILY [facility] Last Admin: 06/30/19 09:29 Dose: 40 mg Gemfibrozil (Lopid -) 600 mg PO BID@0700,1630 [facility] Last Admin: 06/30/19 15:50 Dose: 600 mg Lactated Ringer's (Lactated Ringers Solution) 1,000 ml in 1,000 mls @ 200 mls/hr IV ASDIR [facility] Last Admin: 06/30/19 13:24 Dose: 200 mls/hr Insulin Aspart (Novolog Vial Sliding Scale -) 1 vial SQ [facility]; Protocol Last Admin: 06/30/19 15:49 Dose: 4 units Insulin Detemir (Levemir Vial) 50 units SQ [facility] Morphine Sulfate (Morphine Sulfate) 1 mg IVPUSH Q6H PRN PRN Reason: PAIN LEVEL 6-10 Last Admin: 06/30/19 06:51 Dose: 1 mg Mupirocin (Bactroban Ointment (For Decolonization) -) 1 applic NS BID [facility] Stop: 07/04/19 09:59 Last Admin: 06/30/19 09:30 Dose: 1 applic Oxymetazoline HCl (Afrin -) 2 spray NS BID PRN PRN Reason: NASAL CONGESTION Last Admin: 06/29/19 22:23 Dose: 2 spray Ramipril (Altace -) 2.5 mg PO DAILY [facility] Last Admin: 06/30/19 09:29 Dose: 2.5 mg Rosuvastatin Calcium (Crestor -) 20 mg PO [facility] ASSESSMENT/PLAN: 54 y.o. M PMH HLD (hypertriglyceridemia), DM, HTN, multiple episodes of pancreatitis, s/p appy and taryn admitted for hypertriglyceridemia induced acute pancreatitis #CV -Hx HTN, holding home anti HTN meds -continue to monitor vitals -crestor 20mg daily #GI -Acute pacreatitis 2/2 hypertriglyceridemia -TG's trending down latest 1000s-- continue to monitor -amylase wnl -BGMs q4h -continue IVF -fenofibrate therapy -pain control with morphine 1mg Q6H -Dr. Lincoln following-- recommends repeat abdomen/pelvic CT scan in 3 months to r/o pancreatic CA -educated patient on importance of healthy diet, decr intake fried/ fatty/ high sugar foods #Endo -Hx DM -insulin drip d/c'd -BGMs q4hrs -HBA1c 7.5% -Added: Lopid 600mg BI -Levemir 50mg HS -vascepa & fenofibrate as outpatient #ID -observe off abx -afebrile -leukocytosis resolved #FENLTD -LR @150cc/hr, can decr rate w/ incr PO intake -trend lytes replete prn -advance as tolerated -peripheral lines #PPX -lovenox 40 SQ daily #Dispo can monitor on med surg floor Visit type - Emergency Visit Emergency Visit: No - New Patient This patient is new to me today: No - Critical Care Critical Care patient: Yes Total Critical Care Time (in minutes): 45 Critical Care Statement: The care of this patient involved high complexity decision making to prevent further life threatening deterioration of the patient's condition and/or to evaluate & treat vital organ system(s) failure or risk of failure. ATTENDING PHYSICIAN STATEMENT I saw and evaluated the patient. I reviewed the resident's note and discussed the case with the resident. I agree with the resident's findings and plan as documented. SUBJECTIVE: OBJECTIVE: ASSESSMENT AND PLAN:
[2019-06-30] MEDS: CHLORHEXIDINE GLUCONATE 4% CLEANSER FOR DECOLONIZATION TP SCH (21:18)
[2019-06-30] MEDS ORDERED: INSULIN (LEVEMIR) 100 UNITS/ML UNITS SQ SCH (22:00)
[2019-06-30] MEDS ORDERED: ROSUVASTATIN CA 20 MG TABLET (FP) PO SCH (22:00)
[2019-06-30 23:45] LABS: CHOLESTEROL 245 mg/dL (50-200); HDL CHOLESTEROL 20 mg/dL (40-60); LDL CHOLESTEROL (ONLY SJRH) 79 mg/dL (5-100); TRIGLYCERIDES 870 mg/dL (0-150)
--- NOTE | 2019-07-01 00:09 | PN ---
Progress Note, Physician Chief Complaint: mild luq pain - Current Medication List Current Medications: Active Medications Chlorhexidine Gluconate (Hibiclens For Decolonization -) 1 applic TP [facility] Last Admin: 06/30/19 21:18 Dose: 1 applic Enoxaparin Sodium (Lovenox -) 40 mg SQ DAILY [facility] Last Admin: 06/30/19 09:29 Dose: 40 mg Gemfibrozil (Lopid -) 600 mg PO BID@0700,1630 [facility] Last Admin: 06/30/19 15:50 Dose: 600 mg Lactated Ringer's (Lactated Ringers Solution) 1,000 ml in 1,000 mls @ 150 mls/ hr IV ASDIR [facility] Last Admin: 06/30/19 20:51 Dose: 150 mls/hr Insulin Aspart (Novolog Vial Sliding Scale -) 1 vial SQ [facility]; Protocol Last Admin: 06/30/19 21:21 Dose: 4 units Insulin Detemir (Levemir Vial) 50 units SQ [facility] Last Admin: 06/30/19 21:19 Dose: 50 units Morphine Sulfate (Morphine Sulfate) 1 mg IVPUSH Q6H PRN PRN Reason: PAIN LEVEL 6-10 Last Admin: 06/30/19 22:43 Dose: 1 mg Mupirocin (Bactroban Ointment (For Decolonization) -) 1 applic NS BID [facility] Stop: 07/04/19 09:59 Last Admin: 06/30/19 21:18 Dose: 1 applic Oxymetazoline HCl (Afrin -) 2 spray NS BID PRN PRN Reason: NASAL CONGESTION Last Admin: 06/29/19 22:23 Dose: 2 spray Ramipril (Altace -) 2.5 mg PO DAILY [facility] Last Admin: 06/30/19 09:29 Dose: 2.5 mg Rosuvastatin Calcium (Crestor -) 20 mg PO [facility] Last Admin: 06/30/19 21:18 Dose: 20 mg - Objective Vital Signs: Vital Signs Temperature 98 F 06/30/19 21:00 Pulse Rate 61 06/30/19 21:00 Respiratory Rate 18 06/30/19 21:00 Blood Pressure 126/73 06/30/19 21:00 O2 Sat by Pulse Oximetry (%) 95 06/29/19 21:00 Constitutional: Yes: Calm Eyes: Yes: EOM Intact HENT: Yes: Normocephalic Neck: Yes: Trachea Midline Cardiovascular: Yes: Regular Rate and Rhythm Respiratory: Yes: CTA Bilaterally Gastrointestinal: Yes: Normal Bowel Sounds, Tenderness, Epigastrium ...Rectal Exam: Yes: Deferred Genitourinary: Yes: WNL Breast(s): Yes: WNL Musculoskeletal: Yes: Back Pain, Muscle Weakness Neurological: Yes: Alert, Oriented Labs: CBC, BMP 06/30/19 05:43 06/30/19 05:43 Problem List - Problems (1) Hypertriglyceridemia, familial (2) Pancreatitis Code(s): K85.90 - ACUTE PANCREATITIS WITHOUT NECROSIS OR INFECTION, UNSP Qualifiers: Chronicity: acute Pancreatitis type: unspecified pancreatitis type Acute pancreatitis complication: unspecified Qualified Code(s): K85.90 - Acute pancreatitis without necrosis or infection, unspecified (3) Acute lumbar myofascial strain Code(s): S39.012A - STRAIN OF MUSCLE, FASCIA AND TENDON OF LOWER BACK, INIT Qualifiers: Encounter type: initial encounter Qualified Code(s): S39.012A - Strain of muscle, fascia and tendon of lower back, initial encounter (4) Asthmatic bronchitis Code(s): J45.909 - UNSPECIFIED ASTHMA, UNCOMPLICATED Qualifiers: Asthma severity: mild Asthma persistence: persistent Asthma complication type: with acute exacerbation Qualified Code(s): J45.31 - Mild persistent asthma with (acute) exacerbation (5) Bronchitis Code(s): J40 - BRONCHITIS, NOT SPECIFIED ACUTE OR CHRONIC (6) Diabetes Problems reviewed: Yes Code(s): E11.9 - TYPE 2 DIABETES MELLITUS WITHOUT COMPLICATIONS Qualifiers: Diabetes mellitus terminal operations manager insulin use: with terminal operations manager use (7) Diarrhea Code(s): R19.7 - DIARRHEA, UNSPECIFIED (8) Epigastric pain Code(s): R10.13 - EPIGASTRIC PAIN Assessment/Plan Current Active Problems dmt2,uncontrolled hyperglycemia insulin resistant Hypertriglyceridemia, familial (Acute) Lipedema (Acute) improved Pancreatitis (Acute) Abnormal Lab Results 06/29/19 06/30/19 06/30/19 23:30 05:43 05:43 Anion Gap 7 L 7 L Random Glucose 143 H 178 H Calcium 8.1 L 8.4 L Total Bilirubin 1.1 H AST 55 H ALT 83 H Albumin 2.8 L Triglycerides 1033 H 1067 H Cholesterol 252 H 253 H HDL Cholesterol 18 L 18 L 06/30/19 22:25 Anion Gap Random Glucose Calcium Total Bilirubin AST ALT Albumin Triglycerides 870 H Cholesterol 245 H HDL Cholesterol 20 L plan: gimfibrozol 600mg bid crestor 20mg daily insulin dose titration 50 units levemir daily novlog scale
[2019-07-01] MEDS: GEMFIBROZIL 600 MG TABLET (FP) PO SCH ×2 (06:27→16:22)
[2019-07-01] MEDS: MORPHINE SULFATE 2 MG/ML VIAL IVPUSH PRN (06:27)
[2019-07-01] MEDS: LACTATED RINGERS SOLUTION 1,000 ML/1,000 ML INFUS.BAG IV SCH ×2 (06:36→16:51)
[2019-07-01] MEDS: INSULIN SLIDING SCALE (NOVOLOG) 1 VIAL SQ SCH ×4 (06:43→21:26)
[2019-07-01 07:27] LABS: HEMATOCRIT 41.2 % (35.4-49); MCH 31.2 pg (25.7-33.7); MCHC 33.9 g/dl (32.0-35.9); MEAN CELL VOLUME 92.2 fl (80-96); MEAN PLT VOLUME 8.8 fl (7.5-11.1); PLATELET COUNT 254 K/MM3 (134-434); RBC 4.47 M/mm3 (4.00-5.60); RDW 14.4 % (11.9-15.9); WHITE BLOOD COUNT 4.1 K/mm3 (4.0-10.0)
[2019-07-01 08:07] LABS: CHOLESTEROL 241 mg/dL (50-200); HDL CHOLESTEROL 20 mg/dL (40-60); LDL CHOLESTEROL (ONLY SJRH) 88 mg/dL (5-100); TRIGLYCERIDES 805 mg/dL (0-150)
[2019-07-01 08:14] LABS: ALBUMIN 3.1 g/dl (3.4-5.0); BILIRUBIN,TOTAL 0.5 mg/dL (0.2-1); BLOOD UREA NITROGEN 9.8 mg/dL (7-18); CALCIUM 9.1 mg/dL (8.5-10.1); CREATININE 0.9 mg/dL (0.55-1.3); POTASSIUM 4.5 mmol/L (3.5-5.1); TOT PROT 6.9 g/dl (6.4-8.2)
[2019-07-01] MEDS ORDERED: PT OWN MED DRAWER 7, Y5N ONE (08:52)
--- NOTE | 2019-07-01 09:34 | PN ---
Progress Note, Physician - Current Medication List Current Medications: Active Medications Chlorhexidine Gluconate (Hibiclens For Decolonization -) 1 applic TP [facility] Last Admin: 06/30/19 21:18 Dose: 1 applic Enoxaparin Sodium (Lovenox -) 40 mg SQ [facility] Last Admin: 06/30/19 09:29 Dose: 40 mg Gemfibrozil (Lopid -) 600 mg PO BID@0700,1630 [facility] Last Admin: 07/01/19 06:27 Dose: 600 mg Lactated Ringer's (Lactated Ringers Solution) 1,000 ml in 1,000 mls @ 150 mls/ hr IV ASDIR [facility] Last Admin: 07/01/19 06:36 Dose: 150 mls/hr Insulin Aspart (Novolog Vial Sliding Scale -) 1 vial SQ [facility]; Protocol Last Admin: 07/01/19 06:43 Dose: Not Given Insulin Detemir (Levemir Vial) 50 units SQ [facility] Last Admin: 06/30/19 21:19 Dose: 50 units Morphine Sulfate (Morphine Sulfate) 1 mg IVPUSH Q6H PRN PRN Reason: PAIN LEVEL 6-10 Last Admin: 07/01/19 06:27 Dose: 1 mg Oxymetazoline HCl (Afrin -) 2 spray NS BID PRN PRN Reason: NASAL CONGESTION Last Admin: 06/29/19 22:23 Dose: 2 spray Ramipril (Altace -) 2.5 mg PO DAILY [facility] Last Admin: 06/30/19 09:29 Dose: 2.5 mg Rosuvastatin Calcium (Crestor -) 20 mg PO [facility] Last Admin: 06/30/19 21:18 Dose: 20 mg - Objective Vital Signs: Vital Signs Temperature 97.8 F 07/01/19 08:21 Pulse Rate 70 07/01/19 08:21 Respiratory Rate 18 07/01/19 08:21 Blood Pressure 125/66 07/01/19 08:21 O2 Sat by Pulse Oximetry (%) 95 06/30/19 20:30 Cardiovascular: Yes: Regular Rate and Rhythm Respiratory: Yes: Regular, CTA Bilaterally Gastrointestinal: Yes: Normal Bowel Sounds, Soft. No: Tenderness Labs: CBC, BMP 07/01/19 06:35 07/01/19 06:35 Problem List - Problems (1) Pancreatitis Assessment/Plan: -2/2 hypertriglyceridemia -TG's trending down latest 800s-- continue to monitor -amylase wnl -Lopid bid -Dr. Lincoln following-- recommends repeat abdomen/pelvic CT scan in 3 months to r/o pancreatic CA -educated patient on importance of healthy diet, decr intake fried/ fatty/ high sugar foods Code(s): K85.90 - ACUTE PANCREATITIS WITHOUT NECROSIS OR INFECTION, UNSP Qualifiers: Chronicity: acute Pancreatitis type: unspecified pancreatitis type Acute pancreatitis complication: unspecified Qualified Code(s): K85.90 - Acute pancreatitis without necrosis or infection, unspecified (2) Diabetes Assessment/Plan: -Hx DM -insulin drip d/c'd -BGMs q4hrs -HBA1c 7.5% -Added: Lopid 600mg BI -Levemir 50mg HS -vascepa & fenofibrate as outpatient Code(s): E11.9 - TYPE 2 DIABETES MELLITUS WITHOUT COMPLICATIONS Qualifiers: Diabetes mellitus director long term care insulin use: with residential use
[2019-07-01] MEDS ORDERED: MORPHINE SULFATE 2 MG/ML VIAL IVPUSH PRN (09:44)
[2019-07-01] MEDS: ENOXAPARIN NA (PORCINE) 40 MG/0.4 ML DISP.SYRIN SQ SCH (10:38)
[2019-07-01] MEDS: RAMIPRIL 2.5 MG CAPSULE (FP) PO SCH (10:41)
[2019-07-01] MEDS ORDERED: OXYMETAZOLINE 0.05% NASAL SOLUTION 15 ML BOTTLE NS PRN (19:33)
--- NOTE | 2019-07-01 19:47 | PN.GI ---
GI Progress Note Subjective: tolerating diet, abdominal pain resolved - Objective Vital Signs: Vital Signs Temperature 97.5 F L 07/01/19 15:11 Pulse Rate 74 07/01/19 15:11 Respiratory Rate 18 07/01/19 15:11 Blood Pressure 130/78 07/01/19 15:11 O2 Sat by Pulse Oximetry (%) 97 07/01/19 09:00 Constitutional: Obese Eyes: Yes: Conjunctiva Clear HENT: Yes: Atraumatic Neck: Yes: Supple Cardiovascular: Yes: Regular Rate and Rhythm Respiratory: Yes: CTA Bilaterally ...Palpate: Yes: Soft. No: Firm/Rigid, Guarding, Hepatomegaly, Mass, Pulsatile Mass, Splenomegaly, Tenderness, Tenderness, Epigastium Labs: CBC, BMP 07/01/19 06:35 07/01/19 06:35 Problem List - Problems (1) Pancreatitis Assessment/Plan: resolving R> made aware to follow up please recall as necessary Code(s): K85.90 - ACUTE PANCREATITIS WITHOUT NECROSIS OR INFECTION, UNSP Qualifiers: Chronicity: acute Pancreatitis type: unspecified pancreatitis type Acute pancreatitis complication: unspecified Qualified Code(s): K85.90 - Acute pancreatitis without necrosis or infection, unspecified
[2019-07-01] MEDS ORDERED: INSULIN (LEVEMIR) 100 UNITS/ML UNITS SQ SCH (22:00)
[2019-07-01] MEDS ORDERED: ROSUVASTATIN CA 20 MG TABLET (FP) PO SCH (22:00)
[2019-07-01] MEDS ORDERED: CHLORHEXIDINE GLUCONATE 4% CLEANSER FOR DECOLONIZATION TP SCH (22:00)
[2019-07-01] MEDS ORDERED: INSULIN SLIDING SCALE (NOVOLOG) 1 VIAL SQ SCH (23:11)
[2019-07-02] MEDS: LACTATED RINGERS SOLUTION 1,000 ML/1,000 ML INFUS.BAG IV SCH (05:49)
[2019-07-02 06:04] VITALS: BP 112/68; PULSE 60; TEMP 97.9
[2019-07-02] MEDS ORDERED: PT OWN MED DRAWER 7, Y5N ONE ×2 (06:34→09:04)
[2019-07-02] MEDS ORDERED: GEMFIBROZIL 600 MG TABLET (FP) PO SCH (07:00)
[2019-07-02] MEDS ORDERED: INSULIN (LEVEMIR) 100 UNITS/ML UNITS SQ SCH (07:00)
--- NOTE | 2019-07-02 09:06 | DS ---
Physical Examination Vital Signs: Vital Signs Temperature 97.9 F 07/02/19 06:02 Pulse Rate 60 07/02/19 06:02 Respiratory Rate 18 07/02/19 06:02 Blood Pressure 112/68 07/02/19 06:02 O2 Sat by Pulse Oximetry (%) 97 07/01/19 21:00 Cardiovascular: Yes: Regular Rate and Rhythm Respiratory: Yes: Regular, CTA Bilaterally Gastrointestinal: Yes: Normal Bowel Sounds, Soft. No: Tenderness Labs: CBC, BMP 07/01/19 06:35 07/01/19 06:35 Discharge Summary Problems reviewed: Yes Reason For Visit: CHRONIC RECURRENT PANCREATITIS Current Active Problems Hypertriglyceridemia, familial (Acute) Lipedema (Acute) Pancreatitis (Acute) Hospital Course: - Problems (1) Pancreatitis Assessment/Plan: -2/2 hypertriglyceridemia -TG's trending down latest 800s-- continue to monitor -amylase wnl -Lopid bid -Dr. Lincoln following-- recommends repeat abdomen/pelvic CT scan in 3 months to r/o pancreatic CA -educated patient on importance of healthy diet, decr intake fried/ fatty/ high sugar foods Code(s): K85.90 - ACUTE PANCREATITIS WITHOUT NECROSIS OR INFECTION, UNSP Qualifiers: Chronicity: acute Pancreatitis type: unspecified pancreatitis type Acute pancreatitis complication: unspecified Qualified Code(s): K85.90 - Acute pancreatitis without necrosis or infection, unspecified (2) Diabetes Assessment/Plan: -Hx DM -insulin drip d/c'd -BGMs q4hrs -HBA1c 7.5% -Added: Lopid 600mg BI -Levemir 50mg HS -vascepa & fenofibrate as outpatient Code(s): E11.9 - TYPE 2 DIABETES MELLITUS WITHOUT COMPLICATIONS Qualifiers: Diabetes mellitus custodial insulin use: with terminal operations supervisor use Condition: Stable - Instructions Referrals: Earl Dennis MD [Primary Care Provider] - 1 Week - Home Medications Comprehensive Discharge Medication List: Ambulatory Orders metFORMIN HCL [Glucophage] 1,000 mg PO BID 10/29/12 Atorvastatin Ca [Lipitor] 80 mg PO HS 10/19/15 Aspirin [ASA -] 81 mg PO DAILY 10/20/17 Ramipril 2.5 mg PO DAILY 02/12/19 Gemfibrozil [Lopid -] 600 mg PO BID@0700,1630 #60 tablet 07/02/19 Insulin (Levemir) [Levemir Vial] 40 units SQ BID@0700,2200 #5 cartridge Insulin Sliding Scale [Novolog Vial Sliding Scale -] 1 vial SQ [facility] units 07/02
[2019-07-02] MEDS ORDERED: RAMIPRIL 2.5 MG CAPSULE (FP) PO SCH (10:00)
[2019-07-02] MEDS ORDERED: ENOXAPARIN NA (PORCINE) 40 MG/0.4 ML DISP.SYRIN SQ SCH (10:00)
== END 2019-07-02 10:59 | disposition home or self-care (01) | DRG 440 ==
LOC: JER 11:30 → JERBED 16:11 → JICU 23:40 → J7W 06-30 21:48
PROVIDERS: ADMIT Family Medicine; ATTEND Family Medicine
DX: K85.90 Acute pancreatitis without necrosis or infection, unspecified (principal); E11.65 Type 2 diabetes mellitus with hyperglycemia; E78.5 Hyperlipidemia, unspecified; I10 Essential (primary) hypertension; F17.210 Nicotine dependence, cigarettes, uncomplicated; E78.1 Pure hyperglyceridemia; Z79.4 Long term (current) use of insulin; D72.829 Elevated white blood cell count, unspecified
CPT/HCPCS: 36415; 71046-TC-FY; 74177-TC; 80048; 80053; 80061; 81003; 82150; 82962; 83036; 83605; 83615; 83690; 83721; 83735; 84100; 84478; 85025; 85027; 87086; 93005; 93010; 99285-25; Q9967

== ENCOUNTER 2019-07-17 11:26 | Emergency (ER) | payer OTHER ==
--- NOTE | 2019-07-17 11:47 | PDOC ---
History of Present Illness - General Chief Complaint: Back Pain Stated Complaint: RIGHT BACK PAIN Time Seen by Provider: 07/17/19 11:38 History Source: Patient Exam Limitations: No Limitations - History of Present Illness Initial Comments: 54 yo M history DM, high triglycerides, recent admission for pancreatitis, prior nephrolithiasis requiring lithotripsy presents with abrupt onset R flank pain since last night. Denies any associated dysuria, N/V, hematuria. He states the symptoms are similar to his last kidney stone. He also states he was recently admitted with severe pancreatitis, requiring ICU stay. He has extremely elevated triglycerides, on medication. Denies any recent trauma. Past History - Past Medical History Allergies/Adverse Reactions: Allergies Allergy/AdvReac Type Severity Reaction Status Date / Time No Known Allergies Allergy Verified 06/28/19 11:54 Home Medications: Ambulatory Orders metFORMIN HCL [Glucophage] 1,000 mg PO BID 10/29/12 Atorvastatin Ca [Lipitor] 80 mg PO HS 10/19/15 Aspirin [ASA -] 81 mg PO HS 10/20/17 Ramipril 2.5 mg PO DAILY 02/12/19 Gemfibrozil [Lopid -] 600 mg PO BID@0700,1630 #60 tablet 07/02/19 Cholecalciferol (Vitamin D3) [Optimal D3] 50,000 unit PO WEEKLY 07/17/19 Icosapent Ethyl [Vascepa] 1 gm PO BID 07/17/19 Insulin Glargine,Hum.rec.anlog [Basaglar Kwikpen U-100] 36 unit SQ BID 07/17/19 Insulin Sliding Scale [Novolog Vial Sliding Scale -] 1 vial SQ AC 07/17/19 Anemia: No Asthma: No Cancer: No Cardiac Disorders: No CVA: No COPD: No CHF: No Dementia: No Diabetes: Yes GI Disorders: Yes (Pancreatitis) Disorders: No HTN: No Hypercholesterolemia: Yes (and hyperlipidemia) Liver Disease: No Seizures: No Thyroid Disease: No - Surgical History Abdominal Surgery: No Appendectomy: Yes Cardiac Surgery: No Cholecystectomy: Yes Lung Surgery: No Neurologic Surgery: No Orthopedic Surgery: No - Immunization History Immunization Up to Date: Yes - Psycho Social/Smoking Cessation Hx Smoking Status: Yes Smoking History: Current every day smoker Have you smoked in the past 12 months: Yes Number of Cigarettes Smoked Daily: 10 If you are a former smoker, when did you quit?: 3 days ago, Cigars Per Day: 0 'Breaking Loose' booklet given: 10/20/17 Hx Alcohol Use: No Drug/Substance Use Hx: No Substance Use Type: None Hx Substance Use Treatment: No Review of Systems - Review of Systems Able to Perform ROS?: Yes Comments:: GENERAL/CONSTITUTIONAL: No fever or chills. No weakness. HEAD, EYES, EARS, NOSE AND THROAT: No change in vision. No ear pain or discharge. No sore throat. CARDIOVASCULAR: No chest pain or shortness of breath. RESPIRATORY: No cough, wheezing, or hemoptysis. GASTROINTESTINAL: No nausea, vomiting, diarrhea or constipation. +R flank pain GENITOURINARY: No dysuria, frequency, or change in urination. MUSCULOSKELETAL: No joint or muscle swelling or pain. No neck or back pain. SKIN: No rash. NEUROLOGIC: No headache, vertigo, loss of consciousness, or change in strength/ sensation. ENDOCRINE: No increased thirst. No abnormal weight change. HEMATOLOGIC/LYMPHATIC: No anemia, easy bleeding, or history of blood clots. ALLERGIC/IMMUNOLOGIC: No hives or skin allergy. *Physical Exam - Physical Exam GENERAL: Awake, alert, and fully oriented, in no acute distress HEAD: No signs of trauma EYES: PERRLA, EOMI, sclera anicteric, conjunctiva clear ENT: Auricles normal inspection, hearing grossly normal, nares patent, oropharynx clear without exudates. Moist mucosa NECK: Normal ROM, supple, no lymphadenopathy, JVD, or masses LUNGS: Breath sounds equal, clear to auscultation bilaterally. No wheezes, and no crackles HEART: Regular rate and rhythm, normal S1 and S2, no murmurs, rubs or gallops ABDOMEN: Soft, nontender, normoactive bowel sounds. No guarding, no rebound. No masses. +R CVAT (mild) EXTREMITIES: Normal range of motion, no edema. No clubbing or cyanosis. No cords, erythema, or tenderness NEUROLOGICAL: Cranial nerves II through XII grossly intact. Normal speech, normal gait. Motor and sensation intact SKIN: Warm, dry, normal turgor, no rashes or lesions noted. ED Treatment Course - LABORATORY CBC & Chemistry Diagram: 07/17/19 12:45 07/17/19 12:45 Medical Decision Making - Medical Decision Making 07/17/19 12:44 In light of recent admission, will check CBC and CMP. UA to r/o UTI. CT shows 3mm intrarenal stone. 07/17/19 13:48 CT and lab results d/w patient. Explained that it is very likely for 3mm stone to pass spontaneously. Will give toradol and plan for DC home with urology f/u. Discharge - Discharge Information Problems reviewed: Yes Clinical Impression/Diagnosis: Kidney stone Condition: Stable Disposition: HOME - Admission No - Follow up/Referral Referrals: Earl Dennis MD [Primary Care Provider] - - Patient Discharge Instructions - Post Discharge Activity
[2019-07-17 11:48] VITALS: BP 123/76; PULSE 89; TEMP 97.9; BMI 29.5
[2019-07-17 13:03] LABS: BASO % 1.3 % (0-2.0); EOS % 3.2 % (0-4.5); HEMATOCRIT 43.6 % (35.4-49); HEMOGLOBIN 14.9 GM/dl (11.7-16.9); LYMPH % 40.3 % (8-40); MCH 31.7 pg (25.7-33.7); MCHC 34.2 g/dl (32.0-35.9); MEAN CELL VOLUME 92.8 fl (80-96); MEAN PLT VOLUME 8.6 fl (7.5-11.1); MONO % 9.4 % (3.8-10.2); NEUT % 45.8 % (42.8-82.8); PLATELET COUNT 287 K/MM3 (134-434); RDW 13.5 % (11.9-15.9); WHITE BLOOD COUNT 7.1 K/mm3 (4.0-10.8)
[2019-07-17 13:09] LABS: BILIRUBIN,TOTAL 0.9 mg/dl (0.2-1); CALCIUM 9.2 mg/dl (8.5-10); CREATININE 0.9 mg/dl (0.55-1.3); POTASSIUM 4.1 mmol/L (3.5-5.1); TOT PROT 7.2 g/dl (6.4-8.2)
[2019-07-17] MEDS ORDERED: KETOROLAC TROMETHAMINE 30 MG/1 ML VIAL IVPUSH ONE (13:48)
[2019-07-17] MEDS ORDERED: KETOROLAC TROMETHAMINE 30 MG/1 ML VIAL ONE (13:49)
== END 2019-07-17 14:46 | disposition home or self-care (01) ==
LOC: FER 11:26
PROC: 3E0333Z Introduction of Anti-inflammatory into Peripheral Vein, Percutaneous Approach (ICD-10-PCS; principal; 2019-07-17)
DX: N20.0 Calculus of kidney (principal); Z87.442 Personal history of urinary calculi; E11.9 Type 2 diabetes mellitus without complications; E78.5 Hyperlipidemia, unspecified; F17.210 Nicotine dependence, cigarettes, uncomplicated; Z87.19 Personal history of other diseases of the digestive system; Z79.82 Long term (current) use of aspirin; Z79.84 Long term (current) use of oral hypoglycemic drugs; Z79.4 Long term (current) use of insulin
CPT/HCPCS: 36415; 74176-TC; 80053; 81003; 81015; 85025; 99285-25

== ENCOUNTER 2019-07-17 21:39 | Emergency (ER) | payer OTHER ==
[2019-07-17 21:42] VITALS: TEMP 97.4; BMI 29.5
[2019-07-17] MEDS ORDERED: LIDOCAINE PATCH REMOVAL MC SCH (22:00)
--- NOTE | 2019-07-17 22:11 | PDOC ---
History of Present Illness - General Chief Complaint: Pain, Acute Stated Complaint: ABD PAIN Time Seen by Provider: 07/17/19 22:11 Past History - Past Medical History Allergies/Adverse Reactions: Allergies Allergy/AdvReac Type Severity Reaction Status Date / Time No Known Allergies Allergy Verified 07/17/19 21:42 Home Medications: Ambulatory Orders metFORMIN HCL [Glucophage] 1,000 mg PO BID 10/29/12 Atorvastatin Ca [Lipitor] 80 mg PO HS 10/19/15 Aspirin [ASA -] 81 mg PO HS 10/20/17 Ramipril 2.5 mg PO DAILY 02/12/19 Gemfibrozil [Lopid -] 600 mg PO BID@0700,1630 #60 tablet 07/02/19 Cholecalciferol (Vitamin D3) [Optimal D3] 50,000 unit PO WEEKLY 07/17/19 Ibuprofen [Motrin -] 600 mg PO TID PRN #21 tablet 07/17/19 Icosapent Ethyl [Vascepa] 1 gm PO BID 07/17/19 Insulin Glargine,Hum.rec.anlog [Basaglar Kwikpen U-100] 36 unit SQ BID 07/17/19 Insulin Sliding Scale [Novolog Vial Sliding Scale -] 1 vial SQ AC 07/17/19 Oxycodone HCl/Acetaminophen [Percocet 5-325 mg Tablet] 1 - 2 tab PO Q6H PRN #20 tab MDD 8 tabs 07/17/19 Anemia: No Asthma: No Cancer: No Cardiac Disorders: No CVA: No COPD: No CHF: No Dementia: No Diabetes: Yes GI Disorders: Yes (Pancreatitis) Disorders: No HTN: No Hypercholesterolemia: Yes (and hyperlipidemia) Liver Disease: No Seizures: No Thyroid Disease: No - Surgical History Abdominal Surgery: No Appendectomy: Yes Cardiac Surgery: No Cholecystectomy: Yes Lung Surgery: No Neurologic Surgery: No Orthopedic Surgery: No - Immunization History Immunization Up to Date: Yes - Psycho Social/Smoking Cessation Hx Smoking Status: Yes Smoking History: Never smoked Have you smoked in the past 12 months: Yes Number of Cigarettes Smoked Daily: 10 If you are a former smoker, when did you quit?: 3 days ago, Cigars Per Day: 0 'Breaking Loose' booklet given: 07/17/19 Hx Alcohol Use: No Drug/Substance Use Hx: No Substance Use Type: None Hx Substance Use Treatment: No *Physical Exam - Vital Signs Last Vital Signs Temp Pulse Resp BP Pulse Ox 97.4 F L 77 18 146/65 97 07/17/19 21:40 07/17/19 21:40 07/17/19 21:40 07/17/19 21:40 07/17/19 21:40 Discharge - Follow up/Referral Referrals: Earl Dennis MD [Primary Care Provider] - - Patient Discharge Instructions - Post Discharge Activity
--- NOTE | 2019-07-17 22:37 | PDOC ---
Attending Attestation - Resident Resident Name: Paul Hernandez - ED Attending Attestation I have performed the following: I have examined & evaluated the patient, The case was reviewed & discussed with the resident, I agree w/resident's findings & plan - HPI HPI: 07/17/19 22:36 Pt was in ICU at beginning of the month. This AM went to [facility] with right flank pain. - Physicial Exam PE: 07/18/19 05:23 Pt has paraspinal muscle spasm at the lower T spine and L spine. 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 No abd pain no fever and no chills HEENT normal neuro exam normal heart normal lungs normal - Medical Decision Making 07/18/19 00:45 lipase normal and triglycerides improving Pt is resting with meds in the ER Pt will be sent home once we have his T/L spine CT scan. If normal or minimal peripheral neuropathy he can follow with neurology 07/18/19 02:02 Patient Name: KELSIE ART THIS IS A PRELIMINARY REPORT FROM [facility] DATE OF SERVICE: 2019-07-17 23:50:06 IMAGES: [id number] EXAM: CT thoracic spine without contrast and CT lumbar spine without contrast HISTORY: Back pain between lumbar and thoracic spine COMPARISON: None. FINDINGS: Thoracic spine: Thoracic vertebrae are normally aligned. No fracture or destructive bone lesion. No stenosis of the thoracic bony canal. Lumbar spine: Lumbar vertebrae are normally aligned. No fracture or destructive bone lesion. No stenosis of the lumbar bony canal. At L5-S1, there is disc bulging eccentric to the right with a calcified disc margin which probably narrows the right foramen. Please note however that for evaluation of disc disease, or canal, cord, or nerve root disease, MRI is more sensitive. 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 Nonobstructing right renal stone as well.
[2019-07-17] MEDS ORDERED: KETOROLAC TROMETHAMINE 30 MG/1 ML VIAL IVPUSH ONE ×2 (22:39→22:50)
--- NOTE | 2019-07-17 22:40 | PDOC ---
History of Present Illness - History of Present Illness Initial Comments: 07/17/19 22:40 54 yo M DM, hypertriglyceridemia, recent admission for pancreatitis, prior nephrolithiasis requiring lithotripsy, presenting with R flank pain. Notably was seen this morning at [facility], found to have 3mm R kidney stone and discharged with Percocet and ibuprofen 600mg. Here now due to ongoing pain that is unresponsive to one dose of Percocet. Did not try ibuprofen. Denies fevers/chills, N/V, hematuria. <Paul Hernandez - Last Filed: 07/17/19 23:03> <Cristiana Lucio - Last Filed: 07/18/19 02:06> - General Chief Complaint: Pain, Acute Stated Complaint: ABD PAIN Time Seen by Provider: 07/17/19 22:11 Past History - Past Medical History Anemia: No Asthma: No Cancer: No Cardiac Disorders: No CVA: No COPD: No CHF: No Dementia: No Diabetes: Yes GI Disorders: Yes (Pancreatitis) Disorders: No HTN: No Hypercholesterolemia: Yes (and hyperlipidemia) Liver Disease: No Seizures: No Thyroid Disease: No - Surgical History Abdominal Surgery: No Appendectomy: Yes Cardiac Surgery: No Cholecystectomy: Yes Lung Surgery: No Neurologic Surgery: No Orthopedic Surgery: No - Immunization History Immunization Up to Date: Yes - Psycho Social/Smoking Cessation Hx Smoking Status: Yes Smoking History: Never smoked Have you smoked in the past 12 months: Yes Number of Cigarettes Smoked Daily: 10 If you are a former smoker, when did you quit?: 3 days ago, Cigars Per Day: 0 'Breaking Loose' booklet given: 07/17/19 Hx Alcohol Use: No Drug/Substance Use Hx: No Substance Use Type: None Hx Substance Use Treatment: No <Paul Hernandez - Last Filed: 07/17/19 23:03> <Cristiana Lucio - Last Filed: 07/18/19 02:06> - Past Medical History Allergies/Adverse Reactions: Allergies Allergy/AdvReac Type Severity Reaction Status Date / Time No Known Allergies Allergy Verified 07/17/19 21:42 Home Medications: Ambulatory Orders metFORMIN HCL [Glucophage] 1,000 mg PO BID 10/29/12 Atorvastatin Ca [Lipitor] 80 mg PO HS 10/19/15 Aspirin [ASA -] 81 mg PO HS 10/20/17 Ramipril 2.5 mg PO DAILY 02/12/19 Gemfibrozil [Lopid -] 600 mg PO BID@0700,1630 #60 tablet 07/02/19 Cholecalciferol (Vitamin D3) [Optimal D3] 50,000 unit PO WEEKLY 07/17/19 Ibuprofen [Motrin -] 600 mg PO TID PRN #21 tablet 07/17/19 Icosapent Ethyl [Vascepa] 1 gm PO BID 07/17/19 Insulin Glargine,Hum.rec.anlog [Basaglar Kwikpen U-100] 36 unit SQ BID 07/17/19 Insulin Sliding Scale [Novolog Vial Sliding Scale -] 1 vial SQ AC 07/17/19 Oxycodone HCl/Acetaminophen [Percocet 5-325 mg Tablet] 1 - 2 tab PO Q6H PRN #20 tab MDD 8 tabs 07/17/19 Review of Systems - Review of Systems Comments:: 07/17/19 22:59 GENERAL/CONSTITUTIONAL: denies fever, chills, diaphoresis, generalized weakness , malaise, loss of appetite, weight change HEAD, EYES, EARS, NOSE AND THROAT: denies rhinorrhea, nasal congestion, throat pain, throat swelling, difficulty swallowing, mouth swelling, ear pain, eye pain , visual changes NEUROLOGIC: denies headache, focal weakness or paresthesias, dizziness, unsteady gait, seizure, mental status changes, bladder or bowel incontinence CARDIOVASCULAR: denies chest pain, syncope, palpitations, irregular heart rate, lightheadedness, peripheral edema RESPIRATORY: denies cough, shortness of breath, dyspnea with exertion, orthopnea , wheezing, stridor, hemoptysis GASTROINTESTINAL: denies abdominal pain, abdominal distension, nausea, vomiting , diarrhea, constipation, melena, hematochezia GENITOURINARY: endorses severe R flank pain. Denies dysuria, frequency, urgency , hesitancy, hematuria, genital pain MUSCULOSKELETAL: denies myalgia, arthralgia, joint swelling, back pain, neck pain SKIN: denies rash, itching, pallor HEMATOLOGIC/IMMUNOLOGIC: denies easy bleeding, easy bruising, lymphadenopathy, frequent infections ENDOCRINE: denies unexplained weight gain, unexplained weight loss, heat intolerance, cold intolerance PSYCHIATRIC: denies anxiety, depression, suicidal or homicidal ideation, hallucinations <Hernandez,Nishad - Last Filed: 07/17/19 23:03> *Physical Exam - Vital Signs Last Vital Signs Temp Pulse Resp BP Pulse Ox 97.4 F L 77 18 146/65 97 07/17/19 21:40 07/17/19 21:40 07/17/19 21:40 07/17/19 21:40 07/17/19 21:40 - Physical Exam 07/17/19 23:00 Gen: well-developed, well-nourished, appears to be in pain Neuro: AAOX4, CN II-XII intact, FTN intact, EOMI, PERRLA, 5/5 strength, SILT HEENT: atraumatic, normocephalic Neck: trachea midline, supple CV: regular rate, regular rhythm, no murmurs, rubs, or gallops Pulm: CTA b/l, no wheezing Abd: soft, non-distended, non-tender MSK: full ROM, intact pulses. TTP at thoracolumbar region, R CVA tenderness Extr: no edema, no deformities Skin: warm, dry <Paul Hernandez - Last Filed: 07/17/19 23:03> - Vital Signs Last Vital Signs Temp Pulse Resp BP Pulse Ox 97.4 F L 77 18 146/65 97 07/17/19 21:40 07/17/19 21:40 07/17/19 21:40 07/17/19 21:40 07/17/19 21:40 <Cristiana Lucio - Last Filed: 07/18/19 02:06> ED Treatment Course - ADDITIONAL ORDERS Additional order review: Laboratory Results 07/17/19 22:55 Triglycerides 790 H Lipase 391 - Medications Given in the ED: ED Medications Discontinued Medications Generic Name Dose Route Start Last Admin Trade Name Freq PRN Reason Stop Dose Admin Diazepam 5 mg 07/17/19 22:50 07/17/19 23:19 Valium - PO 07/17/19 22:51 5 mg ONCE ONE Administration Ketorolac Tromethamine 15 mg 07/17/19 22:39 07/17/19 23:03 Toradol Injection - IVPUSH 07/17/19 22:40 Not Given ONCE ONE Ketorolac Tromethamine 30 mg 07/17/19 22:50 07/17/19 23:19 Toradol Injection - IVPUSH 07/17/19 22:51 30 mg ONCE ONE Administration Lidocaine 1 patch 07/17/19 22:49 07/17/19 23:19 Lidoderm Patch - TP 07/17/19 22:50 Not Given ONCE ONE Methocarbamol 1,000 mg 07/17/19 22:50 07/17/19 23:19 Robaxin - PO 07/17/19 22:51 1,000 mg ONCE ONE Administration <Cristiana Lucio - Last Filed: 07/18/19 02:06> Medical Decision Making - Medical Decision Making 07/17/19 23:01 Concern for kidney stone, but also potential back etiologies v pancreatitis considering history - lipase, triglycerides - toradol 30, lidocaine patch, Robaxin, diazepa, - CT thoracic and lumbar spine <Paul Hernandez - Last Filed: 07/17/19 23:03> Discharge <Paul Hernandez - Last Filed: 07/17/19 23:03> - Discharge Information Problems reviewed: Yes <Cristiana Lucio - Last Filed: 07/18/19 02:06> - Discharge Information Clinical Impression/Diagnosis: Back pain Condition: Improved Disposition: HOME - Follow up/Referral Referrals: Earl Dennis MD [Primary Care Provider] - - Patient Discharge Instructions Patient Printed Discharge Instructions: Low Back Pain - Post Discharge Activity Work/Back to School Note: Back to Work
[2019-07-17] MEDS ORDERED: LIDOCAINE 5% TOPICAL PATCH TP ONE (22:49)
[2019-07-17] MEDS ORDERED: diazePAM 5 MG TABLET PO ONE (22:50)
[2019-07-17] MEDS ORDERED: METHOCARBAMOL 500 MG TABLET PO ONE (22:50)
[2019-07-17] MEDS ORDERED: METHOCARBAMOL 500 MG TABLET ONE (23:05)
[2019-07-17] MEDS ORDERED: diazePAM 5 MG TABLET ONE (23:06)
[2019-07-17] MEDS ORDERED: LIDOCAINE 5% TOPICAL PATCH ONE (23:07)
[2019-07-17] MEDS ORDERED: KETOROLAC TROMETHAMINE 30 MG/1 ML VIAL ONE (23:07)
[2019-07-17 23:32] LABS: LIPASE 391 U/L (73-393); TRIGLYCERIDES 790 mg/dL (0-150)
--- NOTE | 2019-07-18 02:13 | PDOC ---
*Physical Exam - Vital Signs Last Vital Signs Temp Pulse Resp BP Pulse Ox 97.4 F L 77 18 146/65 97 07/17/19 21:40 07/17/19 21:40 07/17/19 21:40 07/17/19 21:40 07/17/19 21:40 ED Treatment Course - ADDITIONAL ORDERS Additional order review: Laboratory Results 07/17/19 22:55 Triglycerides 790 H Lipase 391 - Medications Given in the ED: ED Medications Discontinued Medications Generic Name Dose Route Start Last Admin Trade Name Antonella PRN Reason Stop Dose Admin Diazepam 5 mg 07/17/19 22:50 07/17/19 23:19 Valium - PO 07/17/19 22:51 5 mg ONCE ONE Administration Ketorolac Tromethamine 15 mg 07/17/19 22:39 07/17/19 23:03 Toradol Injection - IVPUSH 07/17/19 22:40 Not Given ONCE ONE Ketorolac Tromethamine 30 mg 07/17/19 22:50 07/17/19 23:19 Toradol Injection - IVPUSH 07/17/19 22:51 30 mg ONCE ONE Administration Lidocaine 1 patch 07/17/19 22:49 07/17/19 23:19 Lidoderm Patch - TP 07/17/19 22:50 Not Given ONCE ONE Methocarbamol 1,000 mg 07/17/19 22:50 07/17/19 23:19 Robaxin - PO 07/17/19 22:51 1,000 mg ONCE ONE Administration Medical Decision Making - Medical Decision Making 07/18/19 04:38 Sign out received from Dr. Hernandez. 54M w/evaluation and diagnosis of R nephrolithiasis yesterday p/w ongoing R flank pain. Pending - CT L/T spine read Dispo - discharge --- CT negative for fractures or other acute processes. On reassessment, pain improved. Plan for discharge with ismael, PCP follow up. Discharge - Discharge Information Problems reviewed: Yes Clinical Impression/Diagnosis: Kidney stone on right side Back pain Qualifiers: Back pain location: low back pain Chronicity: acute Back pain laterality: right Sciatica presence: without sciatica Qualified Code(s): M54.5 - Low back pain Condition: Improved Disposition: HOME - Admission No - Additional Discharge Information Prescriptions: Ibuprofen [Motrin -] 600 mg PO TID #30 tablet Methocarbamol [Robaxin -] 500 mg PO TID #30 tablet - Follow up/Referral Referrals: Earl Dennis MD [Primary Care Provider] - - Patient Discharge Instructions Patient Printed Discharge Instructions: Low Back Pain Additional Instructions: You were seen in the ER for back and flank pain. Your bloodwork was normal. Your CT did not show any fractures. Please take the motrin and muscle relaxant for your pain. Do not drive while taking the muscle relaxant (robaxin) as it can make you sleepy. Return to the ER if you have intractable pain, fevers, chills, nausea and vomiting, weakness, chest pain, or trouble breathing. - Post Discharge Activity Work/Back to School Note: Back to Work
[2019-07-18 02:33] VITALS: BP 154/85; PULSE 83
== END 2019-07-18 02:30 | disposition home or self-care (01) ==
LOC: JER 21:39
DX: N20.0 Calculus of kidney (principal); M62.830 Muscle spasm of back; E11.9 Type 2 diabetes mellitus without complications; Z79.4 Long term (current) use of insulin; E78.5 Hyperlipidemia, unspecified; Z87.442 Personal history of urinary calculi
CPT/HCPCS: 36415; 72128-TC; 72131-TC; 83690; 84478; 99285-25

== ENCOUNTER 2019-12-04 21:41 | Emergency (ER) | payer OTHER ==
[2019-12-04 21:51] VITALS: BP 116/84; PULSE 90; TEMP 98.6; BMI 29.5
[2019-12-04] MEDS ORDERED: KETOROLAC TROMETHAMINE 60 MG/2 ML VIAL IM ONE (22:12)
[2019-12-04] MEDS ORDERED: KETOROLAC TROMETHAMINE 60 MG/2 ML VIAL ONE (22:13)
--- NOTE | 2019-12-04 22:14 | PDOC ---
History of Present Illness - General Chief Complaint: Back Pain Stated Complaint: BACK PAIN Time Seen by Provider: 12/04/19 21:44 - History of Present Illness Initial Comments: This 54-year-old man with history of DM/HLD/pancreatitis/kidney stones/recurrent lumbosacral back pain presents with few month history of lower back pain. Patient states that over the last several days, he has had right-sided back pain radiating to the buttock and posterior right thigh. No new trauma noted. He has no pain similar to his previous episodes of renal colic. He denies groin numbness/paresthesias or difficulty with bowel/bladder control. No leg weakness noted. He notes intermittent mild numbness of his right thigh. He was seen at [facility] 07/17 of this year with similar back pain. At that time, thoracic/lumbosacral CT was performed and at level of L5-S1 there was disc bulging eccentric to the right with calcified disc margin probably narrowing the right foramen. Patient states that his symptoms were worsened when he lifted 2 cases of bottled water (it is unclear whether this was before or after he was seen at [facility]). Because of pandemic concerns, he has had no further work-up of the pain such as MRI or consultation with spinal surgeon. He states that in the past, he has had adequate control of his pain with ibuprofen (usually 800 mg dose) and Percocet for more severe pain. He states that he has not had any effective control of pain with muscle relaxants. He denies abdominal pain, nausea/vomiting, fever/chills. Medications as noted below No known allergies Past History - Medical History Allergies/Adverse Reactions: Allergies Allergy/AdvReac Type Severity Reaction Status Date / Time No Known Allergies Allergy Verified 07/17/19 21:42 Home Medications: Ambulatory Orders metFORMIN HCL [Glucophage] 1,000 mg PO BID 10/29/12 Atorvastatin Ca [Lipitor] 80 mg PO HS 10/19/15 Aspirin [ASA -] 81 mg PO HS 10/20/17 Ramipril 2.5 mg PO DAILY 02/12/19 Gemfibrozil [Lopid -] 600 mg PO BID@0700,1630 #60 tablet 07/02/19 Cholecalciferol (Vitamin D3) [Optimal D3] 50,000 unit PO WEEKLY 07/17/19 Ibuprofen [Motrin -] 600 mg PO TID PRN #21 tablet 07/17/19 Icosapent Ethyl [Vascepa] 1 gm PO BID 07/17/19 Insulin Glargine,Hum.rec.anlog [Basaglar Kwikpen U-100] 36 unit SQ BID 07/17/19 Insulin Sliding Scale [Novolog Vial Sliding Scale -] 1 vial SQ AC 07/17/19 Oxycodone HCl/Acetaminophen [Percocet 5-325 mg Tablet] 1 - 2 tab PO Q6H PRN #20 tab MDD 8 tabs 07/17/19 Ibuprofen [Motrin -] 600 mg PO TID #30 tablet 07/18/19 Methocarbamol [Robaxin -] 500 mg PO TID #30 tablet 07/18/19 Oxycodone HCl/Acetaminophen [Percocet 10-325 mg Tablet] 1 each PO BID PRN #10 tablet MDD 2 tabs 12/04/19 Anemia: No Asthma: No Cancer: No Cardiac Disorders: No CVA: No COPD: No CHF: No Dementia: No Diabetes: Yes GI Disorders: Yes (Pancreatitis) Disorders: No HTN: No Hypercholesterolemia: Yes (and hyperlipidemia) Liver Disease: No Seizures: No Thyroid Disease: No - Surgical History Abdominal Surgery: No Appendectomy: Yes Cardiac Surgery: No Cholecystectomy: Yes Lung Surgery: No Neurologic Surgery: No Orthopedic Surgery: No - Immunization History Immunization Up to Date: Yes - Psycho-Social/Smoking History Smoking Status: Yes Smoking History: Unknown if ever smoked Have you smoked in the past 12 months: Yes Number of Cigarettes Smoked Daily: 10 If you are a former smoker, when did you quit?: 3 days ago, Cigars Per Day: 0 Information on smoking cessation initiated: No 'Breaking Loose' booklet given: 07/17/19 Trauma Specific PMHX - Complaint Specific PMHX Arthritis: No Review of Systems - Review of Systems Able to Perform ROS?: Yes Comments:: 12 point review of systems is negative except for what is noted in the history of present illness *Physical Exam - Vital Signs Last Vital Signs Temp Pulse Resp BP Pulse Ox 98.6 F 90 18 116/84 98 12/04/19 21:43 12/04/19 21:43 12/04/19 21:43 12/04/19 21:43 12/04/19 21:43 - Physical Exam GENERAL: Adult male, alert and oriented x3, in mild distress secondary to lower back pain HEAD: Normal with no signs of trauma. EYES: PERRLA, EOMI, sclera anicteric, conjunctiva clear. ENT: Ears normal, nares patent, oropharynx clear without exudates. Moist mucous membranes. EXTREMITIES: Normal range of motion, no edema. No clubbing or cyanosis. No erythema, or tenderness. NEUROLOGICAL: Cranial nerves II through XII grossly intact. Normal speech. Normal gait. No focal neurological deficits. MUSCULOSKELETAL: Back -mild tenderness to palpation right paraspinal L5/right sacroiliac joint area/mid right buttock Positive straight leg raising at 45 degrees on right SKIN: Warm, Dry, normal turgor, no rashes or lesions noted. ED Progress Note - Progress Note Progress Note: As noted above, this 54-year-old man with history of chronic lower back pain (L5 disc bulging seen on CT in June of this year) with acute episode right lower back pain and right sciatica for the last several days, has not had full work-up of his back pain secondary to COVID-19 pandemic considerations. Exam as noted above. Patient will be given Toradol 60 mg IM. Patient states that he has adequate supply of ibuprofen prescription for 800 mg tablets at home. He states that muscle relaxants have been ineffective for him; he will not be prescribed a muscle relaxant. Patient will be prescribed a 5-day prescription of Percocet 10/325 twice a day (#10). Meanwhile, he can follow-up with his PMD, Dr. Dennis. Also, he will be given referral information for Dr. Brumfield, orthopedic spinal surgeon with whom he should follow-up in the near future to make arrangements for MRI and further evaluation/treatment. He should return to the emergency room if he has persistent, severe pain or develops severe numbness/weakness in the leg. Discharge - Discharge Information Problems reviewed: Yes Clinical Impression/Diagnosis: Back pain Qualifiers: Back pain location: low back pain Chronicity: chronic Back pain laterality: right Sciatica presence: with sciatica Sciatica laterality: sciatica of right side Qualified Code(s): M54.41 - Lumbago with sciatica, right side Condition: Stable Disposition: HOME - Additional Discharge Information Prescriptions: Oxycodone HCl/Acetaminophen [Percocet 10-325 mg Tablet] 1 each PO BID PRN #10 tablet MDD 2 tabs PRN Reason: Back Pain - Follow up/Referral Referrals: Earl Dennis MD [Primary Care Provider] - 2 Days Jude Brumfield MD [Staff Physician] - 2 Days - Patient Discharge Instructions Patient Printed Discharge Instructions: Sciatica Additional Instructions: continue Ibuprofen 800mg 2-3 X day as needed; always take with food Percocet 10/325 up to twice a day as needed for severe pain Call orthopedic spine surgeon () on Friday, December 05 arrange for follow-up within the next 5 days Follow-up with Dr. Dennis as discussed Return to ER if you have severe, persistent pain or increase in numbness/weakness of the right leg - Post Discharge Activity
== END 2019-12-04 22:29 | disposition home or self-care (01) ==
LOC: FER 21:41
PROC: 3E023GC Introduction of Other Therapeutic Substance into Muscle, Percutaneous Approach (ICD-10-PCS; principal; 2019-12-04)
DX: M54.41 Lumbago with sciatica, right side (principal)
CPT/HCPCS: 99284-25

== ENCOUNTER 2020-10-14 15:11 | Emergency (ER) | payer OTHER ==
[2020-10-14] MEDS ORDERED: ACETAMINOPHEN 500 MG TABLET (FP) PO ONE (15:30)
[2020-10-14] MEDS ORDERED: KETOROLAC TROMETHAMINE 30 MG/1 ML VIAL IM ONE (15:30)
[2020-10-14 15:35] VITALS: BP 118/76; PULSE 77; TEMP 98.1; BMI 29.6
[2020-10-14] MEDS ORDERED: ACETAMINOPHEN 325 MG TABLET (FP) ONE (15:42)
[2020-10-14] MEDS ORDERED: KETOROLAC TROMETHAMINE 30 MG/1 ML VIAL ONE (15:42)
== END 2020-10-14 16:56 | disposition home or self-care (01) ==
LOC: FER 15:11
PROC: 3E0233Z Introduction of Anti-inflammatory into Muscle, Percutaneous Approach (ICD-10-PCS; principal; 2020-10-14)
DX: M25.521 Pain in right elbow (principal)
CPT/HCPCS: 73070-TC-RT-FY; 99284-25

== ENCOUNTER 2021-05-26 00:14 | Emergency (ER) | payer OTHER ==
[2021-05-26 00:33] VITALS: BP 155/74; PULSE 75; TEMP 98.9; BMI 28.1
[2021-05-28 17:08] LABS: SARS-CoV-2 NAA Not Detected (Not Detected)
== END 2021-05-26 00:45 | disposition home or self-care (01) ==
LOC: FER 00:14
DX: R05.1 Acute cough (principal); Z20.822 Contact with and (suspected) exposure to COVID-19
CPT/HCPCS: 99283-25; C9803; U0003; U0005

== ENCOUNTER 2021-11-23 22:18 | Emergency (ER) | payer OTHER ==
[2021-11-23 22:26] VITALS: BP 152/72; PULSE 96; TEMP 99.4; BMI 30.4
[2021-11-24] MEDS ORDERED: AZITHROMYCIN IVPB 500 MG in DEXTROSE 5%-WATER - 250 ML IVPB ONE (01:18)
[2021-11-24] MEDS ORDERED: ACETAMINOPHEN 500 MG TABLET (FP) PO ONE (01:18)
[2021-11-24] MEDS ORDERED: IBUPROFEN 600 MG TABLET (FP) PO ONE ×2 (01:19→01:25)
[2021-11-24] MEDS ORDERED: AZITHROMYCIN 250 MG TABLET PO ONE (01:25)
[2021-11-24] MEDS ORDERED: AZITHROMYCIN 250 MG TABLET ONE (01:25)
[2021-11-24] MEDS ORDERED: ACETAMINOPHEN 500 MG TABLET (FP) ONE (01:27)
== END 2021-11-24 01:53 | disposition home or self-care (01) ==
LOC: JER 22:18
DX: J18.9 Pneumonia, unspecified organism (principal); R05.1 Acute cough
CPT/HCPCS: 0241U-QW; 71046-TC-FY; 93005; 93010; 99284-25

== ENCOUNTER 2021-12-28 22:31 | Emergency (ER) | payer OTHER ==
[2021-12-28 22:36] VITALS: BP 121/66; PULSE 108; RESP 18; TEMP 101.4; BMI 30.4
[2021-12-28] MEDS ORDERED: ACETAMINOPHEN 500 MG TABLET (FP) PO ONE (22:57)
[2021-12-28] MEDS ORDERED: ACETAMINOPHEN 325 MG TABLET (FP) ONE (23:03)
== END 2021-12-29 01:24 | disposition home or self-care (01) ==
LOC: FER 22:31
DX: U07.1 COVID-19 (principal)
CPT/HCPCS: 0241U-QW; 71045-TC-FY; 99284-25

== ENCOUNTER 2022-01-22 23:12 | Emergency (ER) | payer OTHER ==
[2022-01-22 23:22] VITALS: BP 146/79; PULSE 97; RESP 18; TEMP 99.1; BMI 30.4
[2022-01-22] MEDS ORDERED: MAGNESIUM CITRATE 300 ML BOTTLE ONE (23:51)
[2022-01-22] MEDS ORDERED: MAGNESIUM CITRATE 300 ML BOTTLE PO ONE (23:52)
== END 2022-01-22 23:55 | disposition home or self-care (01) ==
LOC: FER 23:12
DX: K59.00 Constipation, unspecified (principal)
CPT/HCPCS: 99283-25

== ENCOUNTER 2022-08-13 11:45 | Inpatient (IN) | payer OTHER ==
[2022-08-13] MEDS ORDERED: morphine CARPU-JECT 4 MG/1 ML DISP.SYRIN IVPUSH ONE ×3 (12:09→18:12)
[2022-08-13] MEDS ORDERED: ONDANSETRON 4 MG/2 ML VIAL IVPUSH ONE (12:09)
[2022-08-13] MEDS ORDERED: SODIUM CHLORIDE 2,000 ML IV ONE ×2 (12:09→18:15)
[2022-08-13] MEDS ORDERED: morphine SULFATE 4 MG/ML VIAL ONE ×3 (12:36→18:13)
[2022-08-13] MEDS ORDERED: ONDANSETRON 4 MG/2 ML VIAL ONE (12:36)
[2022-08-13 13:13] LABS: HEMATOCRIT 46.9 % (35.4-49); HEMOGLOBIN 16.1 G/dL (11.7-16.9); MCHC 34.3 g/dl (32.0-35.9); MEAN CELL VOLUME 90.4 fl (80-96); MEAN PLT VOLUME 9.2 fl (7.5-11.1); PLATELET COUNT 240.9 10^3/uL (134-434); RBC 5.19 10^6/uL (4.00-5.60); RDW 14.4 % (11.9-15.9); WHITE BLOOD COUNT 11.6 10^3/uL (4.0-10.8)
[2022-08-13 13:36] LABS: ALBUMIN 3.9 g/dl (3.4-5.0); BILIRUBIN,TOTAL 0.6 mg/dl (0.2-1); CALCIUM 8.8 mg/dl (8.5-10); CREATININE 0.9 mg/dl (0.55-1.3); MAGNESIUM 1.8 mg/dL (1.8-2.4); TOT PROT 6.6 g/dl (6.4-8.2)
[2022-08-13 14:17] LABS: PLATELET ESTIMATE ADEQUATE
[2022-08-13] MEDS ORDERED: INSULIN REGULAR HUMAN 100 UNITS/ML *VIAL IVPUSH ONE (14:49)
[2022-08-13] MEDS ORDERED: INSULIN REGULAR HUMAN 100 UNITS/ML *VIAL ONE ×3 (14:53→17:30)
[2022-08-13 15:46] LABS: EPITHELIAL CELLS RARE /hpf
[2022-08-13] MEDS ORDERED: DEXTROSE 50%-WATER - 25 GM/50 ML VIAL IVPUSH PRN (16:56)
[2022-08-13] MEDS ORDERED: INSULIN REGULAR 100 UNITS in SODIUM CHLORIDE 99 ML IVPB SCH (17:00)
[2022-08-13] MEDS ORDERED: morphine SULFATE 4 MG/ML VIAL IVPUSH PRN (18:44)
[2022-08-13 19:21] VITALS: BMI 30.4
[2022-08-13] MEDS: DEXTROSE 5%-LACTATED RINGERS 1,000 ML IV SCH (19:25)
[2022-08-13 20:42] LABS: CALCIUM 7.8 mg/dL (8.5-10.1)
[2022-08-13 20:43] LABS: BLOOD UREA NITROGEN 11.4 mg/dL (7-18)
[2022-08-13 20:46] LABS: CREATININE 0.9 mg/dL (0.55-1.3)
[2022-08-13] MEDS: CHLORHEXIDINE GLUCONATE 4% CLEANSER FOR DECOLONIZATION TP SCH (21:16)
[2022-08-13] MEDS: MUPIROCIN 2% TOPICAL OINTMENT FOR DECOLONIZATION NS SCH (21:16)
[2022-08-13] MEDS: ATORVASTATIN CA 80 MG TABLET (FP) PO SCH (21:16)
[2022-08-13] MEDS ORDERED: KCL 10 MEQ IVPB 10 MEQ/100 ML INFUS.BAG IVPB SCH (21:30)
[2022-08-13] MEDS: HYDROmorphone HCl 2 MG/ML VIAL IVPUSH PRN (21:44)
[2022-08-13] MEDS ORDERED: OMEGA-3 ACID ETHYL ESTERS (FATTY-ACIDS) 1 GM CAPSULE (FP) PO SCH (22:00)
[2022-08-13] MEDS: ASPIRIN 81 MG CHEWABLE TABLETS PO SCH (22:34)
[2022-08-13 23:34] LABS: CALCIUM 7.9 mg/dL (8.5-10.1)
[2022-08-13 23:35] LABS: BLOOD UREA NITROGEN 11.1 mg/dL (7-18)
[2022-08-13 23:38] LABS: CREATININE 0.9 mg/dL (0.55-1.3)
[2022-08-14] MEDS ORDERED: DEXTROSE 50%-WATER 25 GM/50 ML DISP.SYRIN IVPUSH PRN (00:40)
[2022-08-14] MEDS: DEXTROSE 5%-LACTATED RINGERS 1,000 ML IV SCH ×2 (01:08→05:39)
[2022-08-14] MEDS: HYDROmorphone HCl 2 MG/ML VIAL IVPUSH PRN ×4 (04:14→19:58)
[2022-08-14] MEDS ORDERED: ONDANSETRON 4 MG/2 ML VIAL IVPUSH PRN (07:24)
[2022-08-14 07:34] LABS: BASO % 0.5 % (0-2.0); EOS % 1.9 % (0-4.5); HEMATOCRIT 39.7 % (35.4-49); HEMOGLOBIN 13.5 GM/dL (11.7-16.9); LYMPH % 22.4 % (8-40); MCH 30.5 pg (25.7-33.7); MCHC 34.1 g/dl (32.0-35.9); MEAN CELL VOLUME 89.6 fl (80-96); MONO % 10.6 % (3.8-10.2); NEUT % 64.6 % (42.8-82.8); PLATELET COUNT 202 10^3/uL (134-434); RBC 4.44 M/mm3 (4.00-5.60); RDW 14.9 % (11.9-15.9); WHITE BLOOD COUNT 10.6 K/mm3 (4.0-10.0)
[2022-08-14 07:54] LABS: CHOLESTEROL 185 mg/dL (50-200)
[2022-08-14 07:55] LABS: LDL CHOLESTEROL (ONLY SJRH) 30 mg/dL (5-100)
[2022-08-14 07:56] LABS: CALCIUM 7.8 mg/dL (8.5-10.1)
[2022-08-14 07:57] LABS: HDL CHOLESTEROL 24 mg/dL (40-60); MAGNESIUM 1.4 mg/dL (1.8-2.4)
[2022-08-14 07:59] LABS: PHOSPHOROUS 2.1 mg/dL (2.5-4.9)
[2022-08-14 08:01] LABS: BILIRUBIN,TOTAL 1.1 mg/dL (0.2-1); TOT PROT 5.7 g/dl (6.4-8.2)
[2022-08-14 08:02] LABS: ALBUMIN 2.7 g/dl (3.4-5.0)
[2022-08-14] MEDS ORDERED: MAGNESIUM SULF 50% (8.12 MEQ/2 ML-1 GM VIAL) IVPB ONE (09:00)
[2022-08-14] MEDS: MUPIROCIN 2% TOPICAL OINTMENT FOR DECOLONIZATION NS SCH ×2 (09:46→21:58)
[2022-08-14] MEDS ORDERED: RAMIPRIL 2.5 MG CAPSULE PO SCH (10:00)
[2022-08-14] MEDS ORDERED: ENOXAPARIN NA (PORCINE) 40 MG/0.4 ML DISP.SYRIN SQ SCH (10:00)
[2022-08-14] MEDS ORDERED: FENOFIBRIC ACID 135 MG CAP PO SCH (10:00)
[2022-08-14] MEDS: LACTATED RINGERS SOLUTION 1,000 ML/1,000 ML INFUS.BAG IV SCH (11:37)
[2022-08-14] MEDS: INSULIN (LEVEMIR) 100 UNITS/ML UNITS SQ SCH ×2 (11:50→22:06)
[2022-08-14] MEDS: INSULIN SLIDING SCALE (NOVOLOG) 1 VIAL SQ SCH ×4 (11:51→22:21)
[2022-08-14] MEDS: ATORVASTATIN CA 80 MG TABLET (FP) PO SCH (21:58)
[2022-08-14] MEDS: POLYETHYLENE GLYCOL (HEALTHYLAX) 3350 17 GM PACKET PO SCH (21:58)
[2022-08-14] MEDS: ASPIRIN 81 MG CHEWABLE TABLETS PO SCH (21:58)
[2022-08-14] MEDS: CHLORHEXIDINE GLUCONATE 4% CLEANSER FOR DECOLONIZATION TP SCH (21:58)
[2022-08-15] MEDS: LACTATED RINGERS SOLUTION 1,000 ML/1,000 ML INFUS.BAG IV SCH ×4 (01:12→15:24)
[2022-08-15] MEDS: HYDROmorphone HCl 2 MG/ML VIAL IVPUSH PRN ×4 (01:12→18:27)
[2022-08-15] MEDS: INSULIN SLIDING SCALE (NOVOLOG) 1 VIAL SQ SCH ×6 (02:08→22:23)
[2022-08-15] MEDS ORDERED: ONDANSETRON 4 MG/2 ML VIAL IVPUSH PRN (02:40)
[2022-08-15] MEDS ORDERED: DEXTROSE 50%-WATER 25 GM/50 ML DISP.SYRIN IVPUSH PRN (02:40)
[2022-08-15] MEDS ORDERED: DEXTROSE 50%-WATER - 25 GM/50 ML VIAL IVPUSH PRN (02:40)
[2022-08-15] MEDS: INSULIN (LEVEMIR) 100 UNITS/ML UNITS SQ SCH ×2 (07:54→22:23)
[2022-08-15 08:38] LABS: BASO % 0.6 % (0-2.0); EOS % 1.6 % (0-4.5); HEMATOCRIT 36.5 % (35.4-49); HEMOGLOBIN 12.6 GM/dL (11.7-16.9); LYMPH % 16.1 % (8-40); MCHC 34.5 g/dl (32.0-35.9); MEAN PLT VOLUME 8.8 fl (7.5-11.1); MONO % 11.4 % (3.8-10.2); NEUT % 70.3 % (42.8-82.8); PLATELET COUNT 185 10^3/uL (134-434); RBC 4.06 M/mm3 (4.00-5.60); RDW 14.6 % (11.9-15.9); WHITE BLOOD COUNT 10.6 K/mm3 (4.0-10.0)
[2022-08-15 08:56] LABS: CALCIUM 8.3 mg/dL (8.5-10.1)
[2022-08-15 08:57] LABS: ALBUMIN 2.6 g/dl (3.4-5.0)
[2022-08-15 09:00] LABS: BILIRUBIN,TOTAL 1.4 mg/dL (0.2-1); TOT PROT 5.8 g/dl (6.4-8.2)
[2022-08-15 09:01] LABS: BLOOD UREA NITROGEN 7.2 mg/dL (7-18)
[2022-08-15] MEDS ORDERED: INSULIN (NOVOLOG) ASPART 100 UNITS/ML 10ML VIAL ONE ×2 (09:45→22:20)
[2022-08-15] MEDS: ENOXAPARIN NA (PORCINE) 40 MG/0.4 ML DISP.SYRIN SQ SCH (10:00)
[2022-08-15] MEDS: POLYETHYLENE GLYCOL (HEALTHYLAX) 3350 17 GM PACKET PO SCH ×2 (10:00→22:22)
[2022-08-15] MEDS: RAMIPRIL 2.5 MG CAPSULE PO SCH (10:00)
[2022-08-15] MEDS ORDERED: MUPIROCIN 2% TOPICAL OINTMENT FOR DECOLONIZATION NS SCH (10:00)
[2022-08-15] MEDS: FENOFIBRIC ACID 135 MG CAP PO SCH (12:41)
[2022-08-15] MEDS: morphine SULFATE 4 MG/ML VIAL IVPUSH PRN ×2 (12:50→22:26)
[2022-08-15] MEDS ORDERED: CHLORHEXIDINE GLUCONATE 4% CLEANSER FOR DECOLONIZATION TP SCH (22:00)
[2022-08-15] MEDS: ATORVASTATIN CA 80 MG TABLET (FP) PO SCH (22:22)
[2022-08-15] MEDS: ASPIRIN 81 MG CHEWABLE TABLETS PO SCH (22:22)
[2022-08-16] MEDS: LACTATED RINGERS SOLUTION 1,000 ML/1,000 ML INFUS.BAG IV SCH ×4 (00:21→08:58)
[2022-08-16] MEDS: HYDROmorphone HCl 2 MG/ML VIAL IVPB PRN (01:15)
[2022-08-16] MEDS: INSULIN SLIDING SCALE (NOVOLOG) 1 VIAL SQ SCH ×4 (06:30→23:26)
[2022-08-16] MEDS: INSULIN (LEVEMIR) 100 UNITS/ML UNITS SQ SCH ×2 (06:49→23:26)
[2022-08-16 08:56] LABS: HEMATOCRIT 40.1 % (35.4-49); HEMOGLOBIN 13.6 GM/dL (11.7-16.9); MCH 30.8 pg (25.7-33.7); MEAN CELL VOLUME 90.6 fl (80-96); MEAN PLT VOLUME 9.4 fl (7.5-11.1); PLATELET COUNT 219 10^3/uL (134-434); RBC 4.42 M/mm3 (4.00-5.60); RDW 15.5 % (11.9-15.9)
[2022-08-16] MEDS: ENOXAPARIN NA (PORCINE) 40 MG/0.4 ML DISP.SYRIN SQ SCH (09:00)
[2022-08-16] MEDS: RAMIPRIL 2.5 MG CAPSULE PO SCH (09:00)
[2022-08-16] MEDS: POLYETHYLENE GLYCOL (HEALTHYLAX) 3350 17 GM PACKET PO SCH ×3 (09:01→22:22)
[2022-08-16 09:20] LABS: ALBUMIN 2.8 g/dl (3.4-5.0); BLOOD UREA NITROGEN 7.7 mg/dL (7-18); CALCIUM 8.8 mg/dL (8.5-10.1)
[2022-08-16 09:22] LABS: CREATININE 0.9 mg/dL (0.55-1.3)
[2022-08-16 09:24] LABS: BILIRUBIN,TOTAL 1.7 mg/dL (0.2-1); TOT PROT 6.6 g/dl (6.4-8.2)
[2022-08-16 09:35] LABS: ANISOCYTOSIS 0; MACROCYTOSIS 0
[2022-08-16] MEDS: morphine SULFATE 4 MG/ML VIAL IVPUSH PRN ×3 (09:38→23:26)
[2022-08-16] MEDS: FENOFIBRIC ACID 135 MG CAP PO SCH (13:34)
[2022-08-16] MEDS: ASPIRIN 81 MG CHEWABLE TABLETS PO SCH (22:22)
[2022-08-16] MEDS: ATORVASTATIN CA 80 MG TABLET (FP) PO SCH (22:22)
[2022-08-16] MEDS ORDERED: DEXTROSE 50%-WATER 25 GM/50 ML DISP.SYRIN IVPUSH PRN (22:24)
[2022-08-17] MEDS: HYDROmorphone HCl 2 MG/ML VIAL IVPB PRN (02:32)
[2022-08-17] MEDS: LACTATED RINGERS SOLUTION 1,000 ML/1,000 ML INFUS.BAG IV SCH (03:26)
[2022-08-17] MEDS: INSULIN SLIDING SCALE (NOVOLOG) 1 VIAL SQ SCH (06:50)
[2022-08-17] MEDS: INSULIN (LEVEMIR) 100 UNITS/ML UNITS SQ SCH (06:50)
[2022-08-17 08:36] VITALS: RESP 20
[2022-08-17] MEDS: POLYETHYLENE GLYCOL (HEALTHYLAX) 3350 17 GM PACKET PO SCH (09:34)
[2022-08-17] MEDS: RAMIPRIL 2.5 MG CAPSULE PO SCH (09:34)
[2022-08-17] MEDS: ENOXAPARIN NA (PORCINE) 40 MG/0.4 ML DISP.SYRIN SQ SCH (09:34)
[2022-08-17] MEDS: FENOFIBRIC ACID 135 MG CAP PO SCH (09:34)
[2022-08-17 11:56] VITALS: BP 163/86; PULSE 74; TEMP 98.9
== END 2022-08-17 13:26 | disposition left against medical advice (07) | DRG 440 ==
LOC: FER 11:45 → JICU 18:52 → J8W 08-15 03:28
PROVIDERS: ADMIT Family Medicine; ATTEND Family Medicine
DX: K85.90 Acute pancreatitis without necrosis or infection, unspecified (principal); E11.65 Type 2 diabetes mellitus with hyperglycemia; I10 Essential (primary) hypertension; K86.1 Other chronic pancreatitis; E78.00 Pure hypercholesterolemia, unspecified; E78.1 Pure hyperglyceridemia; D72.829 Elevated white blood cell count, unspecified
CPT/HCPCS: 36415; 74177-TC; 80048; 80053; 80061; 81003; 81015; 82465; 82550; 82553; 82962; 83036; 83605; 83690; 83735; 84100; 84478; 84484; 85025; 85027; 86140; 86704; 86708; 86803; 87340; 87517; 93005; 94010; 99291; 99292; C9803-CS; Q9967; U0003; U0005

== ENCOUNTER 2022-08-24 15:30 | Inpatient (IN) | payer OTHER ==
[2022-08-24] MEDS ORDERED: morphine CARPU-JECT 4 MG/1 ML DISP.SYRIN IVPUSH ONE ×2 (15:57→19:14)
[2022-08-24] MEDS ORDERED: ONDANSETRON 4 MG/2 ML VIAL IVPUSH ONE (15:57)
[2022-08-24] MEDS ORDERED: SODIUM CHLORIDE 0.9% 500 ML INFUS.BAG IV ONE ×2 (15:57→18:49)
[2022-08-24] MEDS ORDERED: FAMOTIDINE 20 MG/50 ML IVPB 20 MG/50 ML MG IVPB ONE ×2 (15:57→16:19)
[2022-08-24] MEDS ORDERED: morphine SULFATE 4 MG/ML VIAL ONE ×2 (16:19→19:50)
[2022-08-24] MEDS ORDERED: ONDANSETRON 4 MG/2 ML VIAL ONE (16:19)
[2022-08-24 16:41] LABS: BASO % 0.8 % (0-2.0); EOS % 1.7 % (0-4.5); HEMATOCRIT 46.2 % (35.4-49); HEMOGLOBIN 15.3 GM/dL (11.7-16.9); LYMPH % 36.5 % (8-40); MCH 29.8 pg (25.7-33.7); MCHC 33.1 g/dl (32.0-35.9); MEAN CELL VOLUME 89.9 fl (80-96); MEAN PLT VOLUME 7.4 fl (7.5-11.1); MONO % 8.4 % (3.8-10.2); NEUT % 52.6 % (42.8-82.8); PLATELET COUNT 569 10^3/uL (134-434); RBC 5.14 M/mm3 (4.00-5.60); RDW 15.1 % (11.9-15.9); WHITE BLOOD COUNT 10.6 K/mm3 (4.0-10.0)
[2022-08-24 16:58] LABS: BLOOD UREA NITROGEN 25.2 mg/dL (7-18); INR 1.14 (0.83-1.09); MAGNESIUM 2.8 mg/dL (1.8-2.4); PROTHROMBIN TIME (PATIENT) 13.2 SEC (9.7-13.0)
[2022-08-24 17:01] LABS: ACTIVATED PTT 34.3 SECONDS (25.2-36.5); CREATININE 1.5 mg/dL (0.55-1.3)
[2022-08-24 17:02] LABS: TOT PROT 8.2 g/dl (6.4-8.2)
[2022-08-24 17:03] LABS: BILIRUBIN,TOTAL 0.6 mg/dL (0.2-1)
[2022-08-24 17:23] LABS: CALCIUM 11.6 mg/dL (8.5-10.1); LACTIC ACID 3.2 mmol/L (0.4-2.0)
[2022-08-25 00:11] LABS: ALBUMIN 3.4 g/dl (3.4-5.0); BLOOD UREA NITROGEN 23.8 mg/dL (7-18)
[2022-08-25 00:14] LABS: CREATININE 1.2 mg/dL (0.55-1.3)
[2022-08-25 00:15] LABS: BILIRUBIN,TOTAL 0.5 mg/dL (0.2-1); TOT PROT 7.1 g/dl (6.4-8.2)
[2022-08-25] MEDS ORDERED: SODIUM CHLORIDE 1,000 ML IV SCH (02:00)
[2022-08-25 02:46] LABS: CALCIUM 9.4 mg/dL (8.5-10.1)
[2022-08-25 08:56] VITALS: BMI 27.6
[2022-08-25] MEDS: INSULIN SLIDING SCALE (NOVOLOG) 1 VIAL SQ SCH ×4 (08:59→16:08)
[2022-08-25] MEDS: NICOTINE 14 MG/24 HOURS TOPICAL PATCH TD SCH (09:03)
[2022-08-25 09:05] LABS: BASO % 0.9 % (0-2.0); EOS % 3.3 % (0-4.5); HEMATOCRIT 40.2 % (35.4-49); HEMOGLOBIN 13.7 GM/dL (11.7-16.9); LYMPH % 43.9 % (8-40); MCH 30.9 pg (25.7-33.7); MCHC 33.9 g/dl (32.0-35.9); MEAN CELL VOLUME 91.2 fl (80-96); MEAN PLT VOLUME 7.7 fl (7.5-11.1); NEUT % 44.9 % (42.8-82.8); PLATELET COUNT 426 10^3/uL (134-434); RBC 4.41 M/mm3 (4.00-5.60)
[2022-08-25 11:01] LABS: ALBUMIN 3.2 g/dl (3.4-5.0); BILIRUBIN,TOTAL 0.6 mg/dL (0.2-1); BLOOD UREA NITROGEN 25.3 mg/dL (7-18); CALCIUM 8.9 mg/dL (8.5-10.1); CREATININE 1.2 mg/dL (0.55-1.3); MAGNESIUM 2.3 mg/dL (1.8-2.4); PHOSPHOROUS 3.2 mg/dL (2.5-4.9); TOT PROT 6.6 g/dl (6.4-8.2)
[2022-08-25] MEDS: LACTATED RINGERS SOLUTION 1,000 ML/1,000 ML INFUS.BAG IV SCH ×2 (14:34→22:06)
[2022-08-25] MEDS: HEPARIN NA (PORCINE) 5,000 UNITS/ML 1ML VIAL SQ SCH ×2 (14:34→22:42)
[2022-08-26] MEDS: HEPARIN NA (PORCINE) 5,000 UNITS/ML 1ML VIAL SQ SCH ×3 (05:24→21:07)
[2022-08-26] MEDS: INSULIN SLIDING SCALE (NOVOLOG) 1 VIAL SQ SCH ×3 (06:19→17:18)
[2022-08-26 07:14] LABS: BASO % 1.4 % (0-2.0); EOS % 3.5 % (0-4.5); HEMATOCRIT 36.8 % (35.4-49); HEMOGLOBIN 12.5 GM/dL (11.7-16.9); LYMPH % 47.2 % (8-40); MCH 31.1 pg (25.7-33.7); MCHC 34.1 g/dl (32.0-35.9); MEAN CELL VOLUME 91.5 fl (80-96); MEAN PLT VOLUME 7.8 fl (7.5-11.1); NEUT % 41.9 % (42.8-82.8); PLATELET COUNT 374 10^3/uL (134-434); RBC 4.03 M/mm3 (4.00-5.60); WHITE BLOOD COUNT 5.9 K/mm3 (4.0-10.0)
[2022-08-26 07:28] LABS: CALCIUM 8.1 mg/dL (8.5-10.1)
[2022-08-26 07:31] LABS: BLOOD UREA NITROGEN 20.4 mg/dL (7-18)
[2022-08-26 07:33] LABS: BILIRUBIN,TOTAL 0.5 mg/dL (0.2-1); TOT PROT 6.3 g/dl (6.4-8.2)
[2022-08-26] MEDS: NICOTINE 14 MG/24 HOURS TOPICAL PATCH TD SCH (09:47)
[2022-08-26] MEDS: LACTATED RINGERS SOLUTION 1,000 ML/1,000 ML INFUS.BAG IV SCH ×2 (12:11→21:08)
[2022-08-26] MEDS ORDERED: INSULIN (NOVOLOG MIX 70/30) 100 UNITS/ML MDV SQ ONE ×2 (16:53→17:26)
[2022-08-27] MEDS: LACTATED RINGERS SOLUTION 1,000 ML/1,000 ML INFUS.BAG IV SCH ×3 (07:09→15:16)
[2022-08-27] MEDS: INSULIN SLIDING SCALE (NOVOLOG) 1 VIAL SQ SCH ×3 (07:09→16:44)
[2022-08-27 09:10] LABS: CALCIUM 8.6 mg/dL (8.5-10.1)
[2022-08-27 09:11] LABS: BLOOD UREA NITROGEN 9.3 mg/dL (7-18)
[2022-08-27 09:14] LABS: CREATININE 0.8 mg/dL (0.55-1.3)
[2022-08-27 09:15] LABS: TOT PROT 6.1 g/dl (6.4-8.2)
[2022-08-27 09:16] LABS: BILIRUBIN,TOTAL 0.4 mg/dL (0.2-1)
[2022-08-27] MEDS: PANTOPRAZOLE 40 MG TABLET PO SCH (10:30)
[2022-08-27] MEDS: NICOTINE 14 MG/24 HOURS TOPICAL PATCH TD SCH (10:30)
[2022-08-27] MEDS: HEPARIN NA (PORCINE) 5,000 UNITS/ML 1ML VIAL SQ SCH ×2 (13:41→21:45)
[2022-08-27] MEDS ORDERED: INSULIN (NOVOLOG) ASPART 100 UNITS/ML 10ML VIAL ONE (21:24)
[2022-08-28] MEDS: HEPARIN NA (PORCINE) 5,000 UNITS/ML 1ML VIAL SQ SCH ×4 (06:37→21:56)
[2022-08-28] MEDS: INSULIN SLIDING SCALE (NOVOLOG) 1 VIAL SQ SCH ×3 (06:37→16:32)
[2022-08-28 09:05] LABS: EOS % 3.1 % (0-4.5); HEMATOCRIT 40.6 % (35.4-49); HEMOGLOBIN 13.8 GM/dL (11.7-16.9); LYMPH % 44.3 % (8-40); MCH 30.5 pg (25.7-33.7); MEAN CELL VOLUME 89.7 fl (80-96); MEAN PLT VOLUME 8.1 fl (7.5-11.1); MONO % 5.3 % (3.8-10.2); NEUT % 46.3 % (42.8-82.8); PLATELET COUNT 394 10^3/uL (134-434); RBC 4.53 M/mm3 (4.00-5.60); RDW 14.6 % (11.9-15.9); WHITE BLOOD COUNT 6.4 K/mm3 (4.0-10.0)
[2022-08-28 09:15] LABS: CHLORIDE 109 mmol/L (98-107); SODIUM 136 mmol/L (136-145)
[2022-08-28 09:17] LABS: CALCIUM 9.1 mg/dL (8.5-10.1)
[2022-08-28 09:18] LABS: ALBUMIN 3.3 g/dl (3.4-5.0); ANION GAP 3 MMOL/L (8-16); CO2 24 mmol/L (21-32); GLUCOSE,RANDOM 264 mg/dL (74-106); LIPASE 327 U/L (73-393)
[2022-08-28 09:19] LABS: AMYLASE 89 U/L (25-115)
[2022-08-28 09:21] LABS: CREATININE 1.1 mg/dL (0.55-1.3); SGOT/AST 41 U/L (15-37); SGPT/ALT 49 U/L (13-61)
[2022-08-28 09:22] LABS: BILIRUBIN,TOTAL 0.4 mg/dL (0.2-1); TOT PROT 6.9 g/dl (6.4-8.2)
[2022-08-28 09:23] LABS: ALK PHOS 66 U/L (45-117)
[2022-08-28] MEDS: PANTOPRAZOLE 40 MG TABLET PO SCH (09:34)
[2022-08-28] MEDS: NICOTINE 14 MG/24 HOURS TOPICAL PATCH TD SCH (09:34)
[2022-08-28] MEDS: LACTATED RINGERS SOLUTION 1,000 ML/1,000 ML INFUS.BAG IV SCH ×3 (09:39→22:33)
[2022-08-28] MEDS ORDERED: POLYETHYLENE GLYCOL (HEALTHYLAX) 3350 17 GM PACKET PO ONE (11:15)
[2022-08-28] MEDS ORDERED: INSULIN (NOVOLOG MIX 70/30) 100 UNITS/ML MDV SQ ONE ×2 (11:21→19:56)
[2022-08-28] MEDS ORDERED: ONDANSETRON 4 MG/2 ML VIAL IVPB ONE (18:30)
[2022-08-28] MEDS ORDERED: ACETAMINOPHEN 1000 MG/100 ML BAG IVPB ONE (21:20)
[2022-08-28] MEDS ORDERED: SENNOSIDES/DOCUSATE COMBO (SENNA PLUS) TABLET (UD) PO ONE (21:24)
[2022-08-29] MEDS: HEPARIN NA (PORCINE) 5,000 UNITS/ML 1ML VIAL SQ SCH (06:20)
[2022-08-29] MEDS: LACTATED RINGERS SOLUTION 1,000 ML/1,000 ML INFUS.BAG IV SCH ×2 (06:20→12:39)
[2022-08-29] MEDS: INSULIN SLIDING SCALE (NOVOLOG) 1 VIAL SQ SCH ×2 (06:21→11:11)
[2022-08-29] MEDS ORDERED: FENOFIBRIC ACID 135 MG CAP PO SCH (10:00)
[2022-08-29] MEDS ORDERED: RAMIPRIL 2.5 MG CAPSULE PO SCH (10:00)
[2022-08-29] MEDS ORDERED: INSULIN (LEVEMIR) 100 UNITS/ML UNITS SQ SCH (10:00)
[2022-08-29] MEDS ORDERED: OMEGA-3 ACID ETHYL ESTERS (FATTY-ACIDS) 1 GM CAPSULE (FP) PO SCH (10:00)
[2022-08-29] MEDS: NICOTINE 14 MG/24 HOURS TOPICAL PATCH TD SCH (10:33)
[2022-08-29] MEDS: PANTOPRAZOLE 40 MG TABLET PO SCH (10:33)
[2022-08-29] MEDS ORDERED: INSULIN (NOVOLOG) ASPART 100 UNITS/ML 10ML VIAL ONE (10:39)
[2022-08-29 11:08] VITALS: BP 117/79; PULSE 59; RESP 18; TEMP 98.4
[2022-08-29] MEDS ORDERED: ASPIRIN 81 MG CHEWABLE TABLETS PO SCH (22:00)
[2022-08-29] MEDS ORDERED: ATORVASTATIN CA 80 MG TABLET (FP) PO SCH (22:00)
== END 2022-08-29 13:31 | disposition home or self-care (01) | DRG 439 ==
LOC: JER 15:30 → JERBED 20:43 → J7W 08-25 07:24
PROVIDERS: ADMIT Internal Medicine; ATTEND Family Medicine
DX: K85.90 Acute pancreatitis without necrosis or infection, unspecified (principal); E87.20 Acidosis, unspecified; N17.9 Acute kidney failure, unspecified; E11.9 Type 2 diabetes mellitus without complications; I10 Essential (primary) hypertension; Z79.4 Long term (current) use of insulin; E78.1 Pure hyperglyceridemia; F17.210 Nicotine dependence, cigarettes, uncomplicated; D72.829 Elevated white blood cell count, unspecified
CPT/HCPCS: 0241U-QW; 36415; 74177-TC; 74183-TC; 80053; 80061; 82150; 82962; 83605; 83690; 83735; 84100; 85025; 85610; 85730; 86140; 86301; 93005; 93010; 99285-25; J1644

== ENCOUNTER 2023-12-16 19:32 | Observation (INO) | payer OTHER ==
[2023-12-16] MEDS ORDERED: morphine SULFATE 4 MG/ML VIAL ONE (21:10)
[2023-12-16] MEDS ORDERED: FAMOTIDINE 20 MG/50 ML IVPB 20 MG/50 ML MG IVPB ONE (21:10)
[2023-12-16] MEDS ORDERED: ONDANSETRON 4 MG/2 ML VIAL ONE (21:10)
[2023-12-16 21:18] LABS: BASO % 0.8 % (0-2.0); HEMATOCRIT 41.3 % (35.4-49); HEMOGLOBIN 14.1 GM/dL (11.7-16.9); LYMPH % 27.2 % (8-40); MCH 31.3 pg (25.7-33.7); MCHC 34.2 g/dl (32.0-35.9); MEAN CELL VOLUME 91.5 fl (80-96); MEAN PLT VOLUME 8.2 fl (7.5-11.1); MONO % 10.8 % (3.8-10.2); NEUT % 59.2 % (42.8-82.8); PLATELET COUNT 303 10^3/uL (134-434); RBC 4.51 M/mm3 (4.00-5.60); RDW 14.8 % (11.9-15.9)
[2023-12-16] MEDS: ONDANSETRON 4 MG/2 ML VIAL IVPUSH ONE (21:22)
[2023-12-16] MEDS: FAMOTIDINE 20 MG/50 ML IVPB 20 MG/50 ML MG IVPB ONE (21:22)
[2023-12-16] MEDS: morphine CARPU-JECT 4 MG/1 ML DISP.SYRIN IVPUSH ONE (21:22)
[2023-12-16] MEDS: LACTATED RINGERS SOLUTION 1000 ML INFUS.BAG IV ONE (21:23)
[2023-12-16 21:36] LABS: POTASSIUM 3.9 mmol/L (3.5-5.1)
[2023-12-16 21:38] LABS: CALCIUM 8.9 mg/dL (8.5-10.1)
[2023-12-16 21:39] LABS: ALBUMIN 3.4 g/dl (3.4-5.0); MAGNESIUM 1.7 mg/dL (1.8-2.4)
[2023-12-16 21:42] LABS: CREATININE 1.1 mg/dL (0.55-1.3)
[2023-12-16 21:43] LABS: BILIRUBIN,TOTAL 0.3 mg/dL (0.2-1)
[2023-12-16 21:44] LABS: TOT PROT 6.8 g/dl (6.4-8.2)
[2023-12-16] MEDS ORDERED: DEXTROSE 50%-WATER 25 GM/50 ML DISP.SYRIN ONE (22:44)
[2023-12-16] MEDS ORDERED: DOCUSATE SODIUM 100 MG CAPSULE (FP) PO PRN (22:51)
[2023-12-16] MEDS: DEXTROSE 50%-WATER - 25 GM/50 ML VIAL IVPUSH ONE (22:52)
[2023-12-16 23:55] LABS: POTASSIUM 3.9 mmol/L (3.5-5.1)
[2023-12-16] MEDS: INSULIN ASPART SLIDING SCALE (NOVOLOG) 1 VIAL SQ SCH (23:55)
[2023-12-16] MEDS: SODIUM CHLORIDE 1,000 ML IV STA (23:55)
[2023-12-16 23:58] LABS: CALCIUM 8.2 mg/dL (8.5-10.1); MAGNESIUM 1.7 mg/dL (1.8-2.4)
[2023-12-16 23:59] LABS: BLOOD UREA NITROGEN 13.8 mg/dL (7-18)
[2023-12-17 00:02] LABS: PHOSPHOROUS 3.3 mg/dL (2.5-4.9)
[2023-12-17] MEDS ORDERED: ACETAMINOPHEN INJECTION 100 ML IVPB ONE ×2 (00:04→06:04)
[2023-12-17] MEDS: ACETAMINOPHEN 1000 MG/100 ML BAG IVPB PRN (00:08)
[2023-12-17] MEDS: INSULIN ASPART SLIDING SCALE (NOVOLOG) 1 VIAL SQ SCH (02:14)
[2023-12-17] MEDS ORDERED: morphine SULFATE 4 MG/ML VIAL ONE (02:15)
[2023-12-17] MEDS: morphine SULFATE 4 MG/ML VIAL IVPUSH ONE (02:52)
[2023-12-17 07:05] LABS: BASO % 0.9 % (0-2.0); EOS % 1.9 % (0-4.5); HEMOGLOBIN 14.5 GM/dL (11.7-16.9); LYMPH % 24.9 % (8-40); MCH 31.5 pg (25.7-33.7); MCHC 33.8 g/dl (32.0-35.9); MEAN CELL VOLUME 93.3 fl (80-96); MEAN PLT VOLUME 8.8 fl (7.5-11.1); MONO % 10.9 % (3.8-10.2); NEUT % 61.4 % (42.8-82.8); PLATELET COUNT 285 10^3/uL (134-434); RBC 4.61 M/mm3 (4.00-5.60); RDW 14.8 % (11.9-15.9)
[2023-12-17 07:11] LABS: POTASSIUM 4.6 mmol/L (3.5-5.1)
[2023-12-17 07:16] LABS: CALCIUM 8.9 mg/dL (8.5-10.1)
[2023-12-17 07:17] LABS: ALBUMIN 3.5 g/dl (3.4-5.0); BLOOD UREA NITROGEN 11.3 mg/dL (7-18)
[2023-12-17 07:20] LABS: CREATININE 1.2 mg/dL (0.55-1.3)
[2023-12-17] MEDS: LACTATED RINGERS SOLUTION 1,000 ML/1,000 ML INFUS.BAG IV SCH ×2 (09:08→16:03)
[2023-12-17] MEDS ORDERED: RAMIPRIL 5 MG CAPSULE ONE (09:40)
[2023-12-17] MEDS ORDERED: NICOTINE 14 MG/24 HOURS TOPICAL PATCH TD ONE (09:42)
[2023-12-17] MEDS ORDERED: PANTOPRAZOLE SODIUM 40 MG VIAL ONE (09:43)
[2023-12-17] MEDS: NICOTINE 14 MG/24 HOURS TOPICAL PATCH TD SCH (09:59)
[2023-12-17] MEDS: FENOFIBRIC ACID 135 MG CAP PO SCH (09:59)
[2023-12-17] MEDS: PANTOPRAZOLE SODIUM 40 MG VIAL IVPUSH SCH (09:59)
[2023-12-17] MEDS: RAMIPRIL 2.5 MG CAPSULE PO SCH (09:59)
[2023-12-17] MEDS ORDERED: INSULIN ASPART SLIDING SCALE (NOVOLOG) 1 VIAL SQ ONE ×2 (12:22→16:52)
[2023-12-17 14:34] VITALS: BMI 28.3
[2023-12-17] MEDS ORDERED: ATORVASTATIN CA 80 MG TABLET (FP) PO SCH (22:00)
[2023-12-17] MEDS: ASPIRIN 81 MG CHEWABLE TABLETS PO SCH (23:04)
[2023-12-17] MEDS: ONDANSETRON 4 MG/2 ML VIAL IVPUSH PRN (23:04)
[2023-12-18 07:20] LABS: HEMATOCRIT 39.3 % (35.4-49); HEMOGLOBIN 13.2 GM/dL (11.7-16.9); LYMPH % 40.2 % (8-40); MCH 31.5 pg (25.7-33.7); MCHC 33.6 g/dl (32.0-35.9); MEAN CELL VOLUME 93.7 fl (80-96); MEAN PLT VOLUME 8.6 fl (7.5-11.1); NEUT % 44.9 % (42.8-82.8); PLATELET COUNT 253 10^3/uL (134-434); WHITE BLOOD COUNT 7.7 K/mm3 (4.0-10.0)
[2023-12-18 07:21] LABS: BASO % 0.8 % (0-2.0); EOS % 2.8 % (0-4.5); MONO % 11.3 % (3.8-10.2)
[2023-12-18 07:46] LABS: POTASSIUM 4.2 mmol/L (3.5-5.1)
[2023-12-18 07:54] LABS: CALCIUM 8.5 mg/dL (8.5-10.1)
[2023-12-18 07:55] LABS: BLOOD UREA NITROGEN 10.3 mg/dL (7-18)
[2023-12-18 07:59] LABS: BILIRUBIN,TOTAL 0.8 mg/dL (0.2-1)
[2023-12-18 08:02] LABS: TOT PROT 6.4 g/dl (6.4-8.2)
[2023-12-19] MEDS ORDERED: MIDAZOLAM HCL 2 MG/2 ML SINGLE DOSE VIAL ONE (13:17)
[2023-12-19 19:24] VITALS: RESP 18
[2023-12-20 11:39] VITALS: BP 141/90; PULSE 66; TEMP 98.2
== END 2023-12-20 13:19 | disposition home or self-care (01) ==
LOC: JER 19:32 → JERBED 22:49 → J8W 12-17 13:33
PROVIDERS: ADMIT Internal Medicine; ATTEND Family Medicine
PROC: 3E013VG Introduction of Insulin into Subcutaneous Tissue, Percutaneous Approach (ICD-10-PCS; principal; 2023-12-16)
PROC: 3E0337Z Introduction of Electrolytic and Water Balance Substance into Peripheral Vein, Percutaneous Approach (ICD-10-PCS; 2023-12-16)
PROC: 3E033NZ Introduction of Analgesics, Hypnotics, Sedatives into Peripheral Vein, Percutaneous Approach (ICD-10-PCS; 2023-12-16)
PROC: 3E033GC Introduction of Other Therapeutic Substance into Peripheral Vein, Percutaneous Approach (ICD-10-PCS; 2023-12-16)
PROC: 0DB28ZX Excision of Middle Esophagus, Via Natural or Artificial Opening Endoscopic, Diagnostic (ICD-10-PCS; 2023-12-16)
PROC: 0DB68ZX Excision of Stomach, Via Natural or Artificial Opening Endoscopic, Diagnostic (ICD-10-PCS; 2023-12-16)
DX: K29.50 Unspecified chronic gastritis without bleeding (principal); K20.90 Esophagitis, unspecified without bleeding; K85.90 Acute pancreatitis without necrosis or infection, unspecified; E78.5 Hyperlipidemia, unspecified; F10.21 Alcohol dependence, in remission; R10.84 Generalized abdominal pain; I10 Essential (primary) hypertension; Z90.49 Acquired absence of other specified parts of digestive tract; E11.9 Type 2 diabetes mellitus without complications; F17.210 Nicotine dependence, cigarettes, uncomplicated
CPT/HCPCS: 36415; 74177-TC; 76705-TC; 80048; 80053; 82550; 82553; 82962; 83036; 83690; 83735; 84100; 84478; 85025; 86140; 88305-TC; 88342-TC; 93005; 93010; 93971-TC; 99285-25; G0378; J0131; Q9967

== ENCOUNTER 2024-11-06 23:34 | Emergency (ER) | payer OTHER ==
[2024-11-06 23:46] VITALS: BP 132/63; PULSE 69; RESP 16; TEMP 97.7; BMI 29.9
[2024-11-06] MEDS ORDERED: KETOROLAC TROMETHAMINE 60 MG/2 ML VIAL ONE (23:57)
[2024-11-07] MEDS: KETOROLAC TROMETHAMINE 60 MG/2 ML VIAL IM ONE
== END 2024-11-07 00:45 | disposition home or self-care (01) ==
LOC: FER 23:34
PROC: 3E0233Z Introduction of Anti-inflammatory into Muscle, Percutaneous Approach (ICD-10-PCS; principal; 2024-11-06)
DX: M54.6 Pain in thoracic spine (principal)
CPT/HCPCS: 71046-TC-FY; 99284-25